=== PATIENT | female | born 1965 | race Caucasian/White ===

== ENCOUNTER → 2017-11-27 16:02 | Outpatient (REF) | payer BC, SELFPAY ==
[2017-11-27 17:57] LABS: Amphetamine/Metha Screen,Urine Negative ng/mL (<1000); Barbiturates Screen,Urine Negative ng/mL (<200); Benzodiazepines Screen,Urine Negative ng/mL (200); Cannabinoid Screen,Urine Negative ng/mL (<50); Cocaine Screen,Urine Negative ng/g (<300); Methadone Screen,Urine Negative ng/mL (<300); Opiate Screen,Urine Positive ng/mL (<300); Phencyclidine Screen,Urine Negative ng/mL (<25)
== END ==
LOC: LAB 16:02
PROVIDERS: Visit Provider Emergency Medicine
DX: Z79.899 Other long term (current) drug therapy (principal)
CPT/HCPCS: 80305

== ENCOUNTER → 2017-12-30 17:25 | Outpatient (REF) | payer BC, SELFPAY ==
[2017-12-31 13:07] LABS: Amphetamine/Metha Screen,Urine Negative ng/mL (<1000); Barbiturates Screen,Urine Negative ng/mL (<200); Benzodiazepines Screen,Urine Negative ng/mL (200); Cannabinoid Screen,Urine Negative ng/mL (<50); Cocaine Screen,Urine Negative ng/g (<300); Methadone Screen,Urine Negative ng/mL (<300); Opiate Screen,Urine Positive ng/mL (<300); Phencyclidine Screen,Urine Negative ng/mL (<25)
== END ==
LOC: LAB 17:25
PROVIDERS: Visit Provider Emergency Medicine
DX: Z79.899 Other long term (current) drug therapy (principal)
CPT/HCPCS: 80305

== ENCOUNTER → 2018-01-31 13:27 | Outpatient (REF) | payer BC, SELFPAY ==
[2018-02-04 16:55] LABS: Amphetamine/Metha Screen,Urine Negative ng/mL (<1000); Barbiturates Screen,Urine Negative ng/mL (<200); Benzodiazepines Screen,Urine Negative ng/mL (<200); Cannabinoid Screen,Urine Negative ng/mL (<50); Cocaine Screen,Urine Negative ng/mL (<300); Methadone Screen,Urine Negative ng/mL (<300); Opiate Screen,Urine Positive ng/mL (<300); Phencyclidine Screen,Urine Negative ng/mL (<25)
== END ==
LOC: LAB 13:27
PROVIDERS: Visit Provider Emergency Medicine
DX: F41.9 Anxiety disorder, unspecified (principal); Z79.899 Other long term (current) drug therapy
CPT/HCPCS: 80305

== ENCOUNTER → 2018-03-05 13:21 | Outpatient (REF) | payer BC, SELFPAY ==
[2018-03-05 19:41] LABS: Amphetamine/Metha Screen,Urine Negative ng/mL (<1000); Barbiturates Screen,Urine Negative ng/mL (<200); Benzodiazepines Screen,Urine Negative ng/mL (<200); Cannabinoid Screen,Urine Negative ng/mL (<50); Cocaine Screen,Urine Negative ng/mL (<300); Methadone Screen,Urine Negative ng/mL (<300); Opiate Screen,Urine Positive ng/mL (<300); Phencyclidine Screen,Urine Negative ng/mL (<25)
== END ==
LOC: LAB 13:21
PROVIDERS: Visit Provider Emergency Medicine
DX: Z79.899 Other long term (current) drug therapy (principal)
CPT/HCPCS: 80305

== ENCOUNTER → 2018-04-01 15:10 | Outpatient (REF) | payer BC, SELFPAY ==
[2018-04-01 19:15] LABS: Amphetamine/Metha Screen,Urine Negative ng/mL (<1000); Barbiturates Screen,Urine Negative ng/mL (<200); Benzodiazepines Screen,Urine Negative ng/mL (<200); Cannabinoid Screen,Urine Negative ng/mL (<50); Cocaine Screen,Urine Negative ng/mL (<300); Methadone Screen,Urine Negative ng/mL (<300); Opiate Screen,Urine Positive ng/mL (<300); Phencyclidine Screen,Urine Negative ng/mL (<25)
== END ==
LOC: LAB 15:10
PROVIDERS: Visit Provider Emergency Medicine
DX: Z79.899 Other long term (current) drug therapy (principal)
CPT/HCPCS: 80305

== ENCOUNTER → 2018-04-30 19:41 | Outpatient (REF) | payer BC, SELFPAY ==
[2018-04-30 21:15] LABS: Amphetamine/Metha Screen,Urine Negative ng/mL (<1000); Barbiturates Screen,Urine Negative ng/mL (<200); Benzodiazepines Screen,Urine Negative ng/mL (<200); Cannabinoid Screen,Urine Negative ng/mL (<50); Cocaine Screen,Urine Negative ng/mL (<300); Methadone Screen,Urine Negative ng/mL (<300); Opiate Screen,Urine Positive ng/mL (<300); Phencyclidine Screen,Urine Negative ng/mL (<25)
== END ==
LOC: LAB 19:41
PROVIDERS: PCP Nurse Practitioner Family; Visit Provider Nurse Practitioner Family
DX: Z79.899 Other long term (current) drug therapy (principal)
CPT/HCPCS: 80305

== ENCOUNTER → 2018-05-28 12:56 | Outpatient (CLI) | payer BC, SELFPAY ==
[2018-05-28 14:32] LABS: Amphetamine/Metha Screen,Urine Negative ng/mL (<1000); Barbiturates Screen,Urine Negative ng/mL (<200); Benzodiazepines Screen,Urine Negative ng/mL (<200); Cannabinoid Screen,Urine Negative ng/mL (<50); Cocaine Screen,Urine Negative ng/mL (<300); Methadone Screen,Urine Negative ng/mL (<300); Opiate Screen,Urine Positive ng/mL (<300); Phencyclidine Screen,Urine Negative ng/mL (<25)
== END ==
PROVIDERS: Visit Provider Emergency Medicine
DX: Z79.899 Other long term (current) drug therapy (principal)
CPT/HCPCS: 80305

== ENCOUNTER → 2018-07-25 14:15 | Outpatient (CLI) | payer BC, SELFPAY ==
[2018-07-25 14:48] LABS: Amphetamine/Metha Screen,Urine Negative ng/mL (<1000); Barbiturates Screen,Urine Negative ng/mL (<200); Benzodiazepines Screen,Urine Negative ng/mL (<200); Cannabinoid Screen,Urine Negative ng/mL (<50); Cocaine Screen,Urine Negative ng/mL (<300); Methadone Screen,Urine Negative ng/mL (<300); Opiate Screen,Urine Positive ng/mL (<300); Phencyclidine Screen,Urine Negative ng/mL (<25)
== END ==
PROVIDERS: Visit Provider Emergency Medicine
DX: Z79.899 Other long term (current) drug therapy (principal)
CPT/HCPCS: 80305

== ENCOUNTER → 2018-08-26 11:18 | Outpatient (CLI) | payer BC, SELFPAY ==
[2018-08-26 12:46] LABS: Basophils # 0.1 K/mm3 (0-0.2); Basophils % 0.7 % (0.1-2.0); Eosinophils # 0.1 K/mm3 (0.0-0.4); Eosinophils % 1.1 % (0.1-12.0); Hematocrit 42.4 % (37.0-47.0); Hemoglobin 13.9 g/dL (12.2-16.2); Lymphocytes # 3.5 K/mm3 (0.7-4.5); Lymphocytes % 39.8 % (10-50); Mean Corpuscular HGB Conc 32.9 g/dL (31.8-35.4); Mean Corpuscular Hemoglobin 31.4 pg (27.0-31.2); Mean Corpuscular Volume 95.5 fl (81-99); Mean Platelet Volume 7.7 fl (7.4-10.4); Monocytes # 0.4 K/mm3 (0.1-1.0); Monocytes % 4.7 % (1.7-9.3); Neutrophils # 4.7 K/mm3 (1.8-7.8); Neutrophils % 53.8 % (37.0-80.0); Platelet Count 461 K/mm3 (142-424); Red Blood Count 4.44 M/mm3 (4.20-5.40); White Blood Count 8.8 K/mm3 (4.8-10.8)
[2018-08-26 15:19] LABS: Alanine Aminotransferase 22 U/L (12-78); Albumin/Globulin Ratio 1.3 (1.1-1.8); Alkaline Phosphatase 103 U/L (46-116); Anion Gap 13.9 mEq/L (5-15); Aspartate Amino Transferase 16 U/L (15-37); Bilirubin,Total 0.3 mg/dL (0.2-1.0); Blood Urea Nitrogen 11 mg/dL (7-18); Calcium 8.8 mg/dL (8.5-10.1); Carbon Dioxide 26 mmol/L (21.0-32.0); Chloride 106 mmol/L (98-107); Creatinine,Serum 0.81 mg/dL (0.55-1.02); Estimated Glomerular Filt Rate 75 ml/min (>60); GFR (African American) 90 ML/MIN (>60); Globulin 3.1 gm/dl (1.3-3.2); Glucose 57 mg/dL (74-106); Potassium 3.9 mmoL/L (3.5-5.1); Sodium 142 mmol/L (136-145); Total Protein,Serum 7.1 gm/dL (6.4-8.2)
== END ==
PROVIDERS: Visit Provider Otolaryngology
DX: Z01.818 Encounter for other preprocedural examination (principal); H91.93 Unspecified hearing loss, bilateral
CPT/HCPCS: 36415; 80053; 85025; 93005

== ENCOUNTER → 2018-09-19 13:32 | Outpatient (CLI) | payer BC, SELFPAY ==
[2018-09-19 14:06] LABS: Amphetamine/Metha Screen,Urine Negative ng/mL (<1000); Barbiturates Screen,Urine Negative ng/mL (<200); Benzodiazepines Screen,Urine Negative ng/mL (<200); Cannabinoid Screen,Urine Negative ng/mL (<50); Cocaine Screen,Urine Negative ng/mL (<300); Methadone Screen,Urine Negative ng/mL (<300); Opiate Screen,Urine Positive ng/mL (<300); Phencyclidine Screen,Urine Negative ng/mL (<25)
== END ==
PROVIDERS: Visit Provider Emergency Medicine
DX: Z79.899 Other long term (current) drug therapy (principal)
CPT/HCPCS: 80305

== ENCOUNTER → 2018-11-18 17:27 | Outpatient (CLI) | payer BC, SELFPAY ==
[2018-11-18 19:13] LABS: Amphetamine/Metha Screen,Urine Negative ng/mL (<1000); Barbiturates Screen,Urine Negative ng/mL (<200); Benzodiazepines Screen,Urine Negative ng/mL (<200); Cannabinoid Screen,Urine Negative ng/mL (<50); Cocaine Screen,Urine Negative ng/mL (<300); Methadone Screen,Urine Negative ng/mL (<300); Opiate Screen,Urine Positive ng/mL (<300); Phencyclidine Screen,Urine Negative ng/mL (<25)
== END ==
PROVIDERS: Visit Provider Emergency Medicine
DX: Z79.899 Other long term (current) drug therapy (principal)
CPT/HCPCS: 80305

== ENCOUNTER → 2018-12-03 14:20 | Outpatient (CLI) | payer BC, SELFPAY ==
--- NOTE | 2018-12-03 14:21 | MR_ITS ---
MR thoracic spine wo con HISTORY: Kyphoplasty in 2017. Had lesisons on thoracic spin but came back benign 2017. Increased back pain. Pain worse on LT side x2017. MR --17. ITS.REASON: back pain ORDERING PHYSICIAN: Thee Isaac MD PATIENT AGE: 53 years Comparison: 11/06/2016 TECHNIQUE: Standard multiplanar multiecho sequences are performed without contrast. 3-D MIP and myelographic images are also rendered and reviewed FINDINGS: There is kyphosis of the thoracic spine noted with severe wedge compression changes/vertebral planus at T8. There is retrolisthesis of the posterior superior aspect of T8 vertebral body x 4 mm somewhat less than when compared to the previous exam. The impingement upon the anterior aspect of the cord has improved compared to the previous exam at the T8 area with no significant enhancement on the cord on today's study. Severe compression changes are also present at T6 with loss of height anteriorly of greater than 50% similar to the previous exam without retropulsion. Wedge compression changes have developed at the T12 with loss of height anteriorly of 30%. This has developed since 11-21. However, no bone marrow edema is evident at this level consistent with an old fracture. No bony destructive process is evident. No cord impingement. Multiple T2 hyperintensities are present within the liver which is not readily apparent on the previous exam nor on the CT scan of 11/15/2016. Recommend CT of the abdomen without and with contrast for further evaluation IMPRESSION: 1. Severe wedge compression changes at T6 which are stable for 2. Severe compression changes at T8/vertebra planus with improvement in the retropulsion with no cord compression. 3. Interval development of wedge compression changes at T12 but which do not appear acute. 4. Multiple T2 hyperintensities of the liver. Suggest ET upper abdomen without and with contrast for follow-up evaluation
--- NOTE | 2018-12-03 14:21 | MR_ITS ---
MR lumbar spine wo con, MR 3-d myelogram/MRCP HISTORY: LBP. Tingling, pain, numbness, in left leg. . ITS.REASON: back pain ORDERING PHYSICIAN: Thee Isaac MD PATIENT AGE: 53 years Comparison: None TECHNIQUE: Standard multiplanar multiecho sequences are performed without contrast. 3-D MIP and myelographic images are also rendered and reviewed FINDINGS: Spinal cord ends at the L1 level. Minimal bulging disc at L1-L2 with mild disc desiccation. L2-L3, L3-L4, L4-L5 have an unremarkable appearance. L5-S1: Minimal bulging disc with minimal broad-based central disc protrusion. No canal stenosis or extruded herniated disc evident. IMPRESSION: Minimal bulging disc with small broad-based central disc protrusion without impingement Otherwise negative
== END ==
PROVIDERS: PCP Emergency Medicine; Visit Provider Emergency Medicine
DX: M54.9 Dorsalgia, unspecified (principal); M54.16 Radiculopathy, lumbar region
CPT/HCPCS: 72146; 72148; 76376

== ENCOUNTER → 2018-12-23 08:55 | Outpatient (CLI) | payer BC, SELFPAY ==
--- NOTE | 2018-12-23 09:01 | CT_ITS ---
CT abdomen wo/w con CLINICAL INDICATION: Follow-up abnormal MRI of the liver ITS.REASON: hyperdensities on liver seen on MRI ORDERING PHYSICIAN: Thee Isaac MD PATIENT AGE: 53 years COMPARISON: 12/03/2018, 11/15/2016, 03/12/2016 TECHNIQUE: Contrast Used:75ml Optiray 350 Oral Contrast: None Axial images obtained with sagittal and coronal reformats. All CT scans at the facility use one or more dose reduction, viz: automated exposure control, ma/kV adjustment per patient size (including targeted exams where dose is matched to indication, i.e. head), or iterative reconstruction technique. FINDINGS: The lung bases are clear. MRI demonstrated areas of increased T2 signal within the right hepatic lobe. On the enhanced images there is a 9 x 7 mm isodensity in the right hepatic lobe posteriorly which appears similar on the immediate post enhanced images but is somewhat less apparent on the delayed images. There are at least 2 other smaller isodensity is in the right hepatic lobe measuring 4 mm each which were also present on MRI. Liver otherwise has an unremarkable appearance. The spleen, adrenal glands, pancreas, and kidneys have an unremarkable appearance. There is minimal ectasia of the ureters. The pelvis was not included on the exam and the distal ureters are not demonstrated. There is mild wedging at T12 which was present on the previous MRI of 12/03/2018. IMPRESSION: There are 3 isodense lesion of the right hepatic lobe as described above. These may represent small cysts. Suggest 6 month follow-up without and with contrast to confirm short-term stability.
== END ==
PROVIDERS: PCP Emergency Medicine; Visit Provider Emergency Medicine
DX: R93.2 Abnormal findings on diagnostic imaging of liver and biliary tract (principal)
CPT/HCPCS: 74170; Q9967

== ENCOUNTER → 2019-01-21 13:52 | Outpatient (CLI) | payer BC, SELFPAY ==
[2019-01-21 15:03] LABS: Amphetamine/Metha Screen,Urine Negative ng/mL (<1000); Barbiturates Screen,Urine Negative ng/mL (<200); Benzodiazepines Screen,Urine Negative ng/mL (<200); Cannabinoid Screen,Urine Negative ng/mL (<50); Cocaine Screen,Urine Negative ng/mL (<300); Methadone Screen,Urine Negative ng/mL (<300); Opiate Screen,Urine Positive ng/mL (<300); Phencyclidine Screen,Urine Negative ng/mL (<25)
== END ==
PROVIDERS: Visit Provider Emergency Medicine
DX: Z79.891 Long term (current) use of opiate analgesic (principal)
CPT/HCPCS: 80305

== ENCOUNTER → 2019-02-23 13:07 | Outpatient (POV) | payer BC, SELFPAY ==
[2019-02-23 13:23] VITALS: BP 111/68; PULSE 84; RESP 18; O2SAT 99; BMI 25.7
--- NOTE | 2019-02-23 16:22 | HMH.PMCON ---
Assessment and Plan (1) Lumbar discogenic pain syndrome Current visit: No Status: Chronic Category: Medical Code(s): M51.26 - Other intervertebral disc displacement, lumbar region (2) Compression fx, thoracic spine Current visit: No Status: Chronic Category: Medical Code(s): S22.000A - Wedge compression fracture of unspecified thoracic vertebra, initial encounter for closed fracture (3) Lumbar radicular pain Current visit: No Status: Chronic Category: Medical Code(s): M54.16 - Radiculopathy, lumbar region - Assessment and plan all Dx Assessment and Plan for all problems:: Patient and I had a long discussion about intrathecal therapy. She believes that this would benefit her. I think it would be something that would help her significantly given her symptomology and pathology. She is not on any anticoagulation therapy. She is not currently being treated for any infections. We discussed psychological review and evaluation prior to trial. We also discussed trials risks and benefits along with the implant risk and benefits we also discussed weaning off her House 48 hours prior to both procedures. She understands this. I will follow-up with the patient after her psychological evaluation will reassess her symptoms at that time and move forward with our plan. Dr. Novak has reviewed this note and agrees with this plan of care. This note was dictated using voice recognition software and may contain errors or omissions HPI - Data of Consult Consult date: 02/23/19 Requesting Physician: Amparo Verdugo APRN Primary Care Provider: Thee Isaac MD - Consult Narrative Reason for consult: Back pain, recurrent compression fractures History of present illness: Ms. Kebede is a 53 year old female who presents today for consultation in regards to her back pain. Patient has had multiple thoracic compression fractures and kyphoplasty's. Patient has constant back pain rating an 8 out of 10. She is currently on House however it is not beneficial to her. Patient and I had an extremely long conversation in regards to how she would like to move forward with her pain. She has back pain in her thoracic spine and lower lumbar area. All activity increases pain while heat and rest decreases pain. She is tried multiple modalities of treatment with no relief. Patient is tried kyphoplasty's, physical therapies, massage therapies, multiple medications. She is had pain for over 2 years. Patient's unable to do activities of daily living due to her crippling pain. CC: Amparo Verdugo APRN [facility] History I have reviewed the patient's past medical history: Yes Medical History: Reports:: Anxiety, Depression, Gastroesophageal Reflux Disease(GERD), Hypertension, Palpitations Denies:: Cancer, Diabetes Mellitus Type 1, Diabetes Mellitus Type 2, Internal Pacemaker, MRSA, Seizures *Have you ever received a pneumonia vaccine?: Yes *Have you received a flu vaccine this season?: Yes Other Medical History: Reports: Hypothyroidism. Denies: Blood Transfusion Reaction Other Surgeries: Yes: Cholecystectomy, Colonoscopy, , EGD, Other. No: Pacemaker Amputation: No Fractures: Yes - *Social History Smoking Status: Current every day smoker Tobacco Type: cigarettes # Packs/Day (cigarettes): 1 Alcohol Intake: current Alcohol Intake Frequency:: a few times a week Substance Use Type: denies use *Occupational Status:: other Housing: house Household Members: other *Travel in the last 8 weeks: None - Psychiatric History Pschychiatric History:: Reports:: Anxiety, Depression Family Hx:: Diabetes, Hypertension, Cancer Review of Systems - Review of Systems ROS General: no recent weight change, no fever, no sleep disturbances Respiratory: no cough, no shortness of air, no recurring pulmonary infections Cardiovascular/Peripheral Vascular: No chest pain, No palpitations, no edema, no shortness of breath. Gastrointestinal: no inconti
--- NOTE | 2019-02-23 16:26 | P.CONS_ITS ---
Assessment and Plan (1) Lumbar discogenic pain syndrome Current visit: No Status: Chronic Category: Medical Code(s): M51.26 - Other intervertebral disc displacement, lumbar region (2) Compression fx, thoracic spine Current visit: No Status: Chronic Category: Medical Code(s): S22.000A - Wedge compression fracture of unspecified thoracic vertebra, initial encounter for closed fracture (3) Lumbar radicular pain Current visit: No Status: Chronic Category: Medical Code(s): M54.16 - Radiculopathy, lumbar region - Assessment and plan all Dx Assessment and Plan for all problems:: Patient and I had a long discussion about intrathecal therapy. She believes that this would benefit her. I think it would be something that would help her significantly given her symptomology and pathology. She is not on any anticoagulation therapy. She is not currently being treated for any infections. We discussed psychological review and evaluation prior to trial. We also discussed trials risks and benefits along with the implant risk and benefits we also discussed weaning off her [place] 48 hours prior to both procedures. She understands this. I will follow-up with the patient after her psychological evaluation will reassess her symptoms at that time and move forward with our plan. Dr. Novak has reviewed this note and agrees with this plan of care. This note was dictated using voice recognition software and may contain errors or omissions HPI - Data of Consult Consult date: 02/23/19 Requesting Physician: Amparo Verdugo APRN Primary Care Provider: Thee Isaac MD - Consult Narrative Reason for consult: Back pain, recurrent compression fractures History of present illness: Ms. Kebede is a 53 year old female who presents today for consultation in regards to her back pain. Patient has had multiple thoracic compression fractures and kyphoplasty's. Patient has constant back pain rating an 8 out of 10. She is currently on [place] however it is not beneficial to her. Patient and I had an extremely long conversation in regards to how she would like to move forward with her pain. She has back pain in her thoracic spine and lower lumbar area. All activity increases pain while heat and rest decreases pain. She is tried multiple modalities of treatment with no relief. Patient is tried kyphoplasty's, physical therapies, massage therapies, multiple medications. She is had pain for over 2 years. Patient's unable to do activities of daily living due to her crippling pain. CC: Amparo Verdugo APRN [facility] History I have reviewed the patient's past medical history: Yes Medical History: Reports:: Anxiety, Depression, Gastroesophageal Reflux Disease(GERD), Hypertension, Palpitations Denies:: Cancer, Diabetes Mellitus Type 1, Diabetes Mellitus Type 2, Internal Pacemaker, MRSA, Seizures *Have you ever received a pneumonia vaccine?: Yes *Have you received a flu vaccine this season?: Yes Other Medical History: Reports: Hypothyroidism. Denies: Blood Transfusion Reaction Other Surgeries: Yes: Cholecystectomy, Colonoscopy, , EGD, Other. No: Pacemaker Amputation: No Fractures: Yes - *Social History Smoking Status: Current every day smoker Tobacco Type: cigarettes # Packs/Day (cigarettes): 1 Alcohol Intake: current Alcohol Intake Frequency:: a few times a week Substance Use Type: denies use *Occupational Status:: other Housing: house Household Members: other *Travel in the last 8 weeks: None - Psychiatric History Pschychiatric History:: Reports:: Anxiety, Depression Family Hx:: Diabetes, Hypert
== END ==
PROVIDERS: PCP Emergency Medicine; Visit Provider Clinical Nurse Specialist Family Health
DX: M51.16 Intervertebral disc disorders with radiculopathy, lumbar region (principal); S22.000A Wedge compression fracture of unspecified thoracic vertebra, initial encounter for closed fracture
CPT/HCPCS: 99202

== ENCOUNTER → 2019-03-20 14:21 | Outpatient (CLI) | payer BC, SELFPAY ==
[2019-03-20 19:04] LABS: Amphetamine/Metha Screen,Urine Negative ng/mL (<1000); Barbiturates Screen,Urine Negative ng/mL (<200); Benzodiazepines Screen,Urine Negative ng/mL (<200); Cannabinoid Screen,Urine Negative ng/mL (<50); Cocaine Screen,Urine Negative ng/mL (<300); Methadone Screen,Urine Negative ng/mL (<300); Opiate Screen,Urine Positive ng/mL (<300); Phencyclidine Screen,Urine Negative ng/mL (<25)
== END ==
PROVIDERS: Visit Provider Emergency Medicine
DX: Z79.899 Other long term (current) drug therapy (principal)
CPT/HCPCS: 80305

== ENCOUNTER → 2019-03-27 09:53 | Outpatient (CLI) | payer BC, SELFPAY ==
--- NOTE | 2019-03-27 10:02 | CA_ITS ---
APPROVED REPORT EXAM: Comprehensive 2D, Doppler, and color-flow Echocardiogram Banking Representative: Carrie Willoughby RT(R) Ht: 5 ft 0 in Wt: 133lbs BSA: 1.57 BP: 145/71 mmHg Indications: Chest Pain, Shortness of Breath, Hypertension/HDD 2D Dimensions IVSd 0.80 cm F: 0.6-1.0 PWd 0.80 cm F: 0.6 - 1.0 LVDd 3.00 cm F: 3.9 - 5.3 LVOT 2.10 cm (M/F) 1.5-2.5 M-Mode Dimensions RVDd 2.20 cm (0.9-2.6) LA Diam 3.50 cm (1.9-4.0) LVDd 4.50 cm (3.5-5.7) Ao Diam 2.60 cm (2.0-3.7) LVDs 4.50 cm (3.5-5.7) AV Cusp 1.90 cm (1.5-2.6) IVSd 0.60 cm (0.6-1.1) EF (Teich) 0.00% FS 0.00% EDV (Teich) 92.40 mL ESV (Teich) 92.40 mL LV Diastology E/A Ratio 0.8 MED E' 8.68 (< 7 cm/sec) E'/MED E' Ratio 6.20 (>14) LAT E' 6.92 (<10 cm/sec) E/LAT E' Ratio 7.70 (>14) Mitral Valve MV E Max Zhang. 53.60 (40-130 cm/s) MV A Velocity 71.00 (40-130 cm/s) E/A Ratio 0.80 Tricuspid Valve TR P. Velocity 237.00 cm/s RAP Estimate 10.00 mmHg RVSP 32.00 mmHg Left Ventricle Left atrium is mildly enlarged, left ventricle is normal size, visually estimated ejection fraction 55% with no regional wall motion abnormality. Grade 1 diastolic dysfunction seen without tissue Doppler evidence of raise left atrial pressure. Right Ventricle Right atrium left ventricle mildly enlarged with normal contractility. Aortic Valve Aortic valve is minimally thickened and fibrosed., There is no aortic stenosis aortic insufficiency. Mitral Valve Mitral valve is leaflets are minimally thickened, there is no mitral stenosis. There is moderate mitral regurgitation. Tricuspid Valve Tricuspid valve is grossly normal, there is mild tricuspid regurgitation, tricuspid dilatation jet velocity is inadequate for calculation of the right ventricular systolic pressure. Pulmonic Valve Pulmonic valve is poorly visualized. Great Vessels Aortic root is normal size. Pericardium No significant pericardial effusion noted. Conclusion 1. Mild biatrial enlargement, normal left ventricular size, visually estimated ejection fraction 55% with no regional wall motion abnormality, grade 1 diastolic dysfunction seen without tissue Doppler evidence of raise left atrial pressure. 2. Mildly enlarged right ventricle with normal contractility. 3. Moderate mitral and mild tricuspid regurgitation 4. No significant pericardial effusion noted. Electronically signed by : Michele Duval, 03/27/2019 15:06:46
[2019-03-27 11:10] LABS: Anion Gap 15.5 mEq/L (5-15); Blood Urea Nitrogen 10 mg/dL (7-18); Calcium 9.2 mg/dL (8.5-10.1); Carbon Dioxide 25 mmol/L (21.0-32.0); Chloride 103 mmol/L (98-107); Creatinine,Serum 0.67 mg/dL (0.55-1.02); Estimated Glomerular Filt Rate 93 ml/min (>60); GFR (African American) 112 ML/MIN (>60); Glucose 85 mg/dL (74-106); Potassium 4.5 mmoL/L (3.5-5.1); Sodium 139 mmol/L (136-145)
== END ==
PROVIDERS: PCP Emergency Medicine; Visit Provider Internal Medicine Cardiovascular Disease
DX: R07.9 Chest pain, unspecified (principal); R06.02 Shortness of breath; I10 Essential (primary) hypertension
CPT/HCPCS: 36415; 80048; 83880; 93306

== ENCOUNTER → 2019-05-18 13:58 | Outpatient (CLI) | payer BC, SELFPAY ==
[2019-05-18 16:19] LABS: Amphetamine/Metha Screen,Urine Negative ng/mL (<1000); Barbiturates Screen,Urine Negative ng/mL (<200); Benzodiazepines Screen,Urine Negative ng/mL (<200); Cannabinoid Screen,Urine Negative ng/mL (<50); Cocaine Screen,Urine Negative ng/mL (<300); Methadone Screen,Urine Negative ng/mL (<300); Opiate Screen,Urine Positive ng/mL (<300); Phencyclidine Screen,Urine Negative ng/mL (<25)
== END ==
PROVIDERS: Visit Provider Emergency Medicine
DX: Z79.899 Other long term (current) drug therapy (principal)
CPT/HCPCS: 80305

== ENCOUNTER → 2019-06-15 11:03 | Outpatient (POV) | payer BC, SELFPAY ==
[2019-06-15 12:36] VITALS: BP 134/89; PULSE 85; RESP 18; O2SAT 99; BMI 25.4
--- NOTE | 2019-06-15 12:51 | HMH.PAINSOAP ---
[facility] Pain Management SOAP Note Subjective:: Patient presents quite tearful today to discuss psychological evaluation for intrathecal pain pump. Patient is not a candidate for an intrathecal pain pump at this time. The psychologist had several concerns including the ineffectiveness of her Ativan and potential anxiolytic rebound which potentially could be increasing her anxiety. She is also on a benzo diazepam along with a narcotic which can decrease the analgesic effect of opioids. Is also concerned in regards to her sleeping habits due to the fact that benzodiazepines block deep sleep. Patient was recently seen by Dr. Isaac who increased her [place]. [place] with the patient the concerns of the psychologist had. She is quite tearful today. She rates her pain today 8 out of 10 mostly in her thoracic spine. Patient and I discussed the need to start at the basic level of pain care to move forward. I do believe she needs to have a evaluation in regards to her anxiety due to the concerns that the psychologist had and the potential ineffectiveness of her pain medication due to her current anxiety and benzo use. We will set this up. We will also set her up for some injections to start her off with some pain relief to help her wean off medications potentially. ROS General: no recent weight change, no fever, no sleep disturbances Respiratory: no cough, no shortness of air, no recurring pulmonary infections Cardiovascular/Peripheral Vascular: No chest pain, No palpitations, no edema, no shortness of breath. Gastrointestinal: no new onset incontinence, normal bowel movements reported Genitourinary: no new onset incontinence Musculoskeletal: Thoracic back pain a low back pain Psychiatric: Tearful, anxious Neurological: [denies new onset weakness in extremities], [denies new onset balance issues] Objective:: Physical Exam General: Alert and oriented x3, no acute distress, pleasant and cooperative, [on room air] Lungs: Resps E/U, Symmetrical chest expansion, Eyes: PERRL Musculoskeletal: Flexion and extension of thoracic spine somewhat guarded secondary to pain, deep tendon reflexes normal, strength in upper and lower extremities [5/5], normal gait noted Neurological: speech clear, lubricating machine tender equal, no gross sensory deficits Assessment:: Postlaminectomy syndrome, kyphoplasty, chronic compression fractures Plan:: At this time the patient is not an intrathecal pain pump candidate. We will set her up with Lata Florian for an evaluation in regards to helping address her anxiety more effectively. Patient has no showed for 2 appointments with Lata Florian she must attend the third 1 or they will not schedule her anymore. We will set her up for a T7-T8 thoracic epidural steroid injection. She is not on any anticoagulation therapy. I do believe the patient needs to move forward with other treatment options and just benzodiazepines and narcotics. Dr. Novak has reviewed this note and agrees with this plan of care. This note was dictated using voice recognition software and may contain errors or omissions [facility] History I have reviewed the patient's past medical history: Yes Medical History: Reports:: Anxiety, Depression, Gastroesophageal Reflux Disease(GERD), Hyperlipidemia, Hypertension, Palpitations Denies:: Cancer, Diabetes Mellitus Type 1, Diabetes Mellitus Type 2, Internal Pacemaker, MRSA, Seizures *Have you ever received a pneumonia vaccine?: Yes *Have you received a flu vaccine this season?: Yes Other Medical History: Reports: Hypothyroidism. Denies: Blood Transfusion Reaction Other Surgeries: Yes: Cholecystectomy, Colonoscopy, , EGD, Other. No: Pacemaker Amputation: No Fractures: Yes - *Social History Smoking Status: Current every day smoker Tobacco Type: cigarettes # Packs/Day (cigarettes): 1 Alcohol Intake: current Alcohol Intake Frequency:: a few times a week Substance Use Type: denies use *Occupational Status:: oth
--- NOTE | 2019-06-15 12:55 | P.CONS_ITS ---
[facility] Pain Management SOAP Note Subjective:: Patient presents quite tearful today to discuss psychological evaluation for intrathecal pain pump. Patient is not a candidate for an intrathecal pain pump at this time. The psychologist had several concerns including the ineffectiveness of her Ativan and potential anxiolytic rebound which potentially could be increasing her anxiety. She is also on a benzo diazepam along with a narcotic which can decrease the analgesic effect of opioids. Is also concerned in regards to her sleeping habits due to the fact that benzodiazepines block deep sleep. Patient was recently seen by Dr. Isaac who increased her [place]. [place] with the patient the concerns of the psychologist had. She is quite tearful today. She rates her pain today 8 out of 10 mostly in her thoracic spine. Patient and I discussed the need to start at the basic level of pain care to move forward. I do believe she needs to have a evaluation in regards to her anxiety due to the concerns that the psychologist had and the potential ineffectiveness of her pain medication due to her current anxiety and benzo use. We will set this up. We will also set her up for some injections to start her off with some pain relief to help her wean off medications potentially. ROS General: no recent weight change, no fever, no sleep disturbances Respiratory: no cough, no shortness of air, no recurring pulmonary infections Cardiovascular/Peripheral Vascular: No chest pain, No palpitations, no edema, no shortness of breath. Gastrointestinal: no new onset incontinence, normal bowel movements reported Genitourinary: no new onset incontinence Musculoskeletal: Thoracic back pain a low back pain Psychiatric: Tearful, anxious Neurological: [denies new onset weakness in extremities], [denies new onset balance issues] Objective:: Physical Exam General: Alert and oriented x3, no acute distress, pleasant and cooperative, [on room air] Lungs: Resps E/U, Symmetrical chest expansion, Eyes: PERRL Musculoskeletal: Flexion and extension of thoracic spine somewhat guarded secondary to pain, deep tendon reflexes normal, strength in upper and lower extremities [5/5], normal gait noted Neurological: speech clear, switchboard operator receptionist equal, no gross sensory deficits Assessment:: Postlaminectomy syndrome, kyphoplasty, chronic compression fractures Plan:: At this time the patient is not an intrathecal pain pump candidate. We will set her up with Lata Florian for an evaluation in regards to helping address her anxiety more effectively. Patient has no showed for 2 appointments with Lata Florian she must attend the third 1 or they will not schedule her anymore. We will set her up for a T7-T8 thoracic epidural steroid injection. She is not on any anticoagulation therapy. I do believe the patient needs to move forward with other treatment options and just benzodiazepines and narcotics. Dr. Novak has reviewed this note and agrees with this plan of care. This note was dictated using voice recognition software and may contain errors or omissions [facility] History I have reviewed the patient's past medical history: Yes Medical History: Reports:: Anxiety, Depression, Gastroesophageal Reflux Disease(GERD), Hyperlipidemia, Hypertension, Palpitations Denies:: Cancer, Diabetes Mellitus Type 1, Diabetes Mellitus Type 2, Internal Pacemaker, MRSA, Seizures *Have you ever received a pneumonia vaccine?: Yes *Have you received a flu vaccine this season?: Yes Other Medical History: Reports: Hypothyroidism. Denies: Blood Transfusion Reaction Other Surgeries: Yes: Cholecystectomy, Colonoscopy, C
[2019-06-15 15:41] VITALS: BP 189/87; PULSE 59; RESP 18; O2SAT 98; BMI 33.0
== END ==
PROVIDERS: PCP Emergency Medicine; Visit Provider Clinical Nurse Specialist Family Health
DX: M96.1 Postlaminectomy syndrome, not elsewhere classified (principal); S22.000A Wedge compression fracture of unspecified thoracic vertebra, initial encounter for closed fracture
CPT/HCPCS: 99212

== ENCOUNTER → 2019-07-15 13:25 | Outpatient (CLI) | payer BC, SELFPAY ==
[2019-07-15 15:44] LABS: Amphetamine/Metha Screen,Urine Negative ng/mL (<1000); Barbiturates Screen,Urine Negative ng/mL (<200); Benzodiazepines Screen,Urine Negative ng/mL (<200); Cannabinoid Screen,Urine Negative ng/mL (<50); Cocaine Screen,Urine Negative ng/mL (<300); Methadone Screen,Urine Negative ng/mL (<300); Opiate Screen,Urine Positive ng/mL (<300); Phencyclidine Screen,Urine Negative ng/mL (<25)
== END ==
PROVIDERS: Visit Provider Emergency Medicine
DX: Z79.899 Other long term (current) drug therapy (principal)
CPT/HCPCS: 80305

== ENCOUNTER → 2019-07-27 11:46 | Outpatient (POV) | payer BC, SELFPAY ==
[2019-07-27 11:59] VITALS: BP 132/72; PULSE 70; RESP 18; O2SAT 99; BMI 25.0
--- NOTE | 2019-07-27 12:39 | HMH.PAINSOAP ---
[facility] Pain Management SOAP Note Subjective:: Patient presents for follow-up after thoracic epidural steroid injection. She rates her pain today an 8 of 10 and states it did not help. Patient is not a candidate for an intrathecal pain pump at this time. The psychologist had several concerns including the ineffectiveness of her Ativan and potential anxiolytic rebound which potentially could be increasing her anxiety. She is also on a benzo diazepam along with a narcotic which can decrease the analgesic effect of opioids. Is also concerned in regards to her sleeping habits due to the fact that benzodiazepines block deep sleep. Patient was recently seen by Dr. Isaac who increased her [place]. Our hope was that the thoracic epidural would help however she did not find it beneficial. I did make her an appointment with Lata Florian for anxiety. I do believe that is beneficial if we could get that under control it would be helpful. Patient was unable to make her appointment and rescheduled it for August 10. I do believe she needs to have a evaluation in regards to her anxiety due to the concerns that the psychologist had and the potential ineffectiveness of her pain medication due to her current anxiety and benzo use. ROS General: no recent weight change, no fever, no sleep disturbances Respiratory: no cough, no shortness of air, no recurring pulmonary infections Cardiovascular/Peripheral Vascular: No chest pain, No palpitations, no edema, no shortness of breath. Gastrointestinal: no new onset incontinence, normal bowel movements reported Genitourinary: no new onset incontinence Musculoskeletal: Back pain Psychiatric: normal mood/ affect Neurological: [denies new onset weakness in extremities], [denies new onset balance issues] Objective:: Physical Exam General: Alert and oriented x3, no acute distress, pleasant and cooperative, [on room air] Lungs: Resps E/U, Symmetrical chest expansion, Eyes: PERRL Musculoskeletal: Flexion and extension of thoracic spine somewhat guarded secondary to pain, deep tendon reflexes normal, strength in upper and lower extremities [5/5], normal gait noted Neurological: speech clear, mangle press catcher equal, no gross sensory deficits Assessment:: 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 She has been instructed to call the office if she has any issues prior to her next appointment. Dr. Novak has reviewed this note and agrees with this plan of care. This note was dictated using voice recognition software and may contain errors or omissions [facility] History I have reviewed the patient's past medical history: Yes Medical History: Reports:: Anxiety, Depression, Gastroesophageal Reflux Disease(GERD), Hyperlipidemia, Hypertension, Palpitations Denies:: Cancer, Diabetes Mellitus Type 1, Diabetes Mellitus Type 2, Internal Pacemaker, MRSA, Seizures *Have you ever received a pneumonia vaccine?: Yes *Have you received a flu vaccine this season?: Yes Other Medical History: Reports: Hypothyroidism. Denies: Blood Transfusion Reaction Other Surgeries: Yes: Cholecystectomy, Colonoscopy, , EGD, Other. No: Pacemaker Amputation: No Fractures: Yes - *Social History Smoking Status: Current every day smoker Tobacco Type: cigarettes # Packs/Day (cigarettes): 1 Alcohol Intake: current Alcohol Intake Frequency:: 0-2 drinks per day Substance Use Type: denies use *Occupational Status:: other Housing: house Household Members: other *Travel in the last 8 weeks: None - Psychiatric History Pschychiatric History:: Reports:: Anxiety, Depression Family Hx:: Diabetes, Hypertension, Cancer
== END ==
PROVIDERS: PCP Emergency Medicine; Visit Provider Clinical Nurse Specialist Family Health
DX: M51.14 Intervertebral disc disorders with radiculopathy, thoracic region (principal); M54.5 Low back pain; F32.9 Major depressive disorder, single episode, unspecified; F41.9 Anxiety disorder, unspecified; K21.9 Gastro-esophageal reflux disease without esophagitis; E78.5 Hyperlipidemia, unspecified; I10 Essential (primary) hypertension; R00.2 Palpitations; E03.9 Hypothyroidism, unspecified; Z72.0 Tobacco use
CPT/HCPCS: 99212

== ENCOUNTER → 2019-08-14 09:56 | Outpatient (CLI) | payer BC, SELFPAY ==
[2019-08-14 10:51] LABS: Basophils # 0.1 K/mm3 (0-0.2); Basophils % 0.4 % (0.1-2.0); Eosinophils # 0.2 K/mm3 (0.0-0.4); Eosinophils % 1.7 % (0.1-12.0); Hemoglobin 14.2 g/dL (12.2-16.2); Lymphocytes # 2.1 K/mm3 (0.7-4.5); Lymphocytes % 15.6 % (10-50); Mean Corpuscular HGB Conc 32.3 g/dL (31.8-35.4); Mean Corpuscular Hemoglobin 30.4 pg (27.0-31.2); Mean Corpuscular Volume 94.2 fl (81-99); Mean Platelet Volume 7.5 fl (7.4-10.4); Monocytes # 0.4 K/mm3 (0.1-1.0); Monocytes % 3.1 % (1.7-9.3); Neutrophils # 10.5 K/mm3 (1.8-7.8); Neutrophils % 79.2 % (37.0-80.0); Platelet Count 598 K/mm3 (142-424); Red Blood Count 4.67 M/mm3 (4.20-5.40); Red Cell Distribution Width 12.9 % (11.5-17.5); White Blood Count 13.3 K/mm3 (4.8-10.8)
[2019-08-14 12:19] LABS: Alanine Aminotransferase 22 U/L (12-78); Albumin/Globulin Ratio 1.3 (1.1-1.8); Alkaline Phosphatase 119 U/L (46-116); Anion Gap 15.8 mEq/L (5-15); Aspartate Amino Transferase 11 U/L (15-37); Bilirubin,Total 0.1 mg/dL (0.2-1.0); Blood Urea Nitrogen 12 mg/dL (7-18); Calcium 9.5 mg/dL (8.5-10.1); Carbon Dioxide 24 mmol/L (21.0-32.0); Chloride 103 mmol/L (98-107); Chol/HDL Ratio 5.7 (1-3.5); Cholesterol 228 mg/dL (140-200); Creatinine,Serum 0.72 mg/dL (0.55-1.02); Estimated Glomerular Filt Rate 85 ml/min (>60); Free Thyroxine Index 2.6 ug/dL (5.93-13.13); GFR (African American) 103 ML/MIN (>60); Globulin 3.1 gm/dl (1.3-3.2); Glucose 103 mg/dL (74-106); HDL Cholesterol 40 mg/dL (29-89); LDL Cholesterol 139 mg/dL (0-130); Potassium 4.8 mmoL/L (3.5-5.1); Sodium 138 mmol/L (136-145); T4 (Thyroxine) 7.8 ug/dl (4.7-13.3); Thyroid Stimulating Hormone 1.01 uIU/ml (0.358-3.740); Total Protein,Serum 7.1 gm/dL (6.4-8.2); Triglycerides 245 mg/dL (30-200); Triiodothryronine (T3) Uptake 33 % (31-39); VLDL Cholesterol 49 mg/dL (0-40)
[2019-08-15 15:31] LABS: Vitamin D 25 Hydroxy 18.7 ng/mL (30.0-100.0)
== END ==
PROVIDERS: Visit Provider Nurse Practitioner Family
DX: Z00.00 Encounter for general adult medical examination without abnormal findings (principal); I10 Essential (primary) hypertension; E78.5 Hyperlipidemia, unspecified; E03.9 Hypothyroidism, unspecified; E55.9 Vitamin D deficiency, unspecified; F17.200 Nicotine dependence, unspecified, uncomplicated; Z79.899 Other long term (current) drug therapy
CPT/HCPCS: 36415; 80053; 80061; 80323; 82652; 84436; 84443; 84479; 85025

== ENCOUNTER → 2019-08-17 11:51 | Outpatient (POV) | payer BC, SELFPAY ==
[2019-08-17 12:21] VITALS: BP 114/66; PULSE 77; RESP 18; O2SAT 99; BMI 25.0
--- NOTE | 2019-08-17 12:42 | P.CONS_ITS ---
[facility] Pain Management SOAP Note Subjective:: Patient is a very pleasant 54-year-old white female who presents today for follow-up. Patient has been seen by Lata Florian. It sounds like it was a very beneficial discussion there and work on preventing her anxiety versus managing it with Ativan. At this time patient was not intrathecal pain pump candidate due to her being on Ativan and [place]. There is also some concerns in regards to her sleeping we will work and continue to monitor her through this process and work toward something that can be implanted to be a more permanent fix for her back pain. 8 out of 10 is her pain today ROS General: no recent weight change, no fever, no sleep disturbances Respiratory: no cough, no shortness of air, no recurring pulmonary infections Cardiovascular/Peripheral Vascular: No chest pain, No palpitations, no edema, no shortness of breath. Gastrointestinal: no new onset incontinence, normal bowel movements reported Genitourinary: no new onset incontinence Musculoskeletal: Back pain Psychiatric: normal mood/ affect Neurological: [denies new onset weakness in extremities], [denies new onset balance issues] Objective:: Physical Exam General: Alert and oriented x3, no acute distress, pleasant and cooperative, [on room air] Lungs: Resps E/U, Symmetrical chest expansion, Eyes: PERRL Musculoskeletal: Flexion and extension of thoracic and lumbar spine somewhat guarded secondary to pain, deep tendon reflexes normal, strength in upper and lower extremities [5/5], antalgic gait noted Neurological: speech clear, nfl player equal, no gross sensory deficits Assessment:: Degenerative disc disease thoracic spine with thoracic radiculopathy and low back pain Plan:: We will to the patient back for follow-up in 2 months reassess her symptoms at that time she is been instructed to call the office if she has any issues prior to her next appointment. Dr. Novak has reviewed this note and agrees with this plan of care. This note was dictated using voice recognition software and may contain errors or omissions [facility] History I have reviewed the patient's past medical history: Yes Medical History: Reports:: Anxiety, Depression, Gastroesophageal Reflux Disease(GERD), Hyperlipidemia, Hypertension, Palpitations Denies:: Cancer, Diabetes Mellitus Type 1, Diabetes Mellitus Type 2, Internal Pacemaker, MRSA, Seizures *Have you ever received a pneumonia vaccine?: Yes *Have you received a flu vaccine this season?: Yes Other Medical History: Reports: Hypothyroidism. Denies: Blood Transfusion Reaction Other Surgeries: Yes: Cholecystectomy, Colonoscopy, , EGD, Other (pre cancer mole removed, back surgery 2017). No: Pacemaker Amputation: No Fractures: Yes - *Social History Smoking Status: Current every day smoker Tobacco Type: cigarettes # Packs/Day (cigarettes): 1 Alcohol Intake: current Alcohol Intake Frequency:: 0-2 drinks per day Substance Use Type: denies use *Occupational Status:: other Housing: house Household Members: other *Travel in the last 8 weeks: None - Psychiatric History Pschychiatric History:: Reports:: Anxiety, Depression Family Hx:: Diabetes, Hypertension, Cancer
== END ==
PROVIDERS: PCP Emergency Medicine; Visit Provider Clinical Nurse Specialist Family Health
DX: M51.14 Intervertebral disc disorders with radiculopathy, thoracic region (principal); M54.5 Low back pain; Z72.0 Tobacco use
CPT/HCPCS: 99212

== ENCOUNTER → 2019-09-04 17:13 | Outpatient (CLI) | payer BC, SELFPAY ==
[2019-09-04 18:27] LABS: Amphetamine/Metha Screen,Urine Negative ng/ml (<1000); Barbiturates Screen,Urine Negative ng/ml (<200)
[2019-09-04 18:29] LABS: Benzodiazepines Screen,Urine Negative ng/ml (<200)
[2019-09-04 18:30] LABS: Cannabinoid Screen,Urine Negative ng/ml (<50)
[2019-09-04 18:31] LABS: Cocaine Screen,Urine Negative ng/ml (<300)
[2019-09-04 18:32] LABS: Methadone Screen,Urine Negative ng/ml (<300); Opiate Screen,Urine Positive ng/ml (<300)
[2019-09-04 18:33] LABS: Phencyclidine Screen,Urine Negative ng/ml (<25)
== END ==
PROVIDERS: Visit Provider Emergency Medicine
DX: Z79.899 Other long term (current) drug therapy (principal)
CPT/HCPCS: 80305

== ENCOUNTER → 2019-12-01 15:13 | Outpatient (CLI) | payer BC, SELFPAY ==
[2019-12-01 20:21] LABS: Amphetamine/Metha Screen,Urine Negative ng/ml (<1000)
[2019-12-01 20:22] LABS: Barbiturates Screen,Urine Negative ng/ml (<200)
[2019-12-01 20:23] LABS: Benzodiazepines Screen,Urine Negative ng/ml (<200); Cannabinoid Screen,Urine Negative ng/ml (<50)
[2019-12-01 20:24] LABS: Cocaine Screen,Urine Negative ng/ml (<300); Methadone Screen,Urine Negative ng/ml (<300)
[2019-12-01 20:25] LABS: Opiate Screen,Urine Positive ng/ml (<300)
[2019-12-01 20:26] LABS: Phencyclidine Screen,Urine Negative ng/ml (<25)
== END ==
PROVIDERS: Visit Provider Emergency Medicine
DX: Z79.899 Other long term (current) drug therapy (principal)
CPT/HCPCS: 80305

== ENCOUNTER → 2019-12-29 09:28 | Outpatient (CLI) | payer BC, SELFPAY ==
[2019-12-30 15:17] LABS: Covid-19 Nasal PCR Sendout Lex Not Detected
== END ==
PROVIDERS: PCP Emergency Medicine; Visit Provider Emergency Medicine
DX: Z03.818 Encounter for observation for suspected exposure to other biological agents ruled out (principal)
CPT/HCPCS: U0004

== ENCOUNTER → 2020-01-29 13:56 | Outpatient (CLI) | payer BC, SELFPAY ==
[2020-01-29 14:12] LABS: Basophils # 0.1 K/mm3 (0-0.2); Basophils % 0.4 % (0.1-2.0); Eosinophils # 0.1 K/mm3 (0.0-0.4); Eosinophils % 0.8 % (0.1-12.0); Hematocrit 43.6 % (37.0-47.0); Hemoglobin 14.3 g/dL (12.2-16.2); Lymphocytes # 3.1 K/mm3 (0.7-4.5); Lymphocytes % 19.4 % (10-50); Mean Corpuscular HGB Conc 32.8 g/dL (31.8-35.4); Mean Corpuscular Hemoglobin 32.2 pg (27.0-31.2); Mean Platelet Volume 9.3 fl (7.4-10.4); Monocytes # 0.7 K/mm3 (0.1-1.0); Monocytes % 4.1 % (1.7-9.3); Neutrophils # 12.1 K/mm3 (1.8-7.8); Neutrophils % 75.3 % (37.0-80.0); Platelet Count 331 K/mm3 (142-424); Red Blood Count 4.45 M/mm3 (4.20-5.40); Red Cell Distribution Width 12.6 % (11.5-17.5); White Blood Count 16.1 K/mm3 (4.8-10.8)
[2020-01-29 14:20] LABS: Alanine Aminotransferase 16 U/L (12-78); Albumin Level 4.7 g/dl (3.5-5.0); Albumin/Globulin Ratio 1.7 (1.1-1.8); Alkaline Phosphatase 93 U/L (38-126); Anion Gap 15.6 mEq/L (5-15); Aspartate Amino Transferase 23 U/L (14-36); Bilirubin,Total 0.6 mg/dl (0.2-1.3); Blood Urea Nitrogen 8 mg/dl (7-17); Calcium 10.1 mg/dl (8.4-10.2); Carbon Dioxide 24 mmol/L (22.0-30.0); Chloride 104 mmol/L (98-107); Chol/HDL Ratio 6.1 (1-3.5); Cholesterol 244 mg/dl (140-200); Estimated Glomerular Filt Rate 105 ml/min (>60); GFR (African American) 127 ML/MIN (>60); Globulin 2.8 g/dL (1.3-3.2); Glucose 99 mg/dl (74-100); HDL Cholesterol 40 mg/dl (40-60); Potassium 4.6 mmoL/L (3.5-5.1); Sodium 139 mmol/L (136-145); Total Protein,Serum 7.5 g/dl (6.3-8.2); Triglycerides 375 mg/dl (30-150); VLDL Cholesterol 75 mg/dL (0-40)
[2020-01-29 14:22] LABS: MANUAL DIFFERENTIAL MANUAL DIFFERENTIAL (MANUAL DIFF)
[2020-01-29 14:38] LABS: 25-OH Vitamin D, Total 51.5 ng/mL (30-100)
[2020-01-29 14:39] LABS: Free T4 (Free Thyroxine) 1.43 ng/dl (0.78-2.19)
[2020-01-29 14:52] LABS: Thyroid Stimulating Hormone 1.64 uIU/mL (0.465-4.68)
[2020-01-29 15:14] LABS: Lymphocytes % 19 % (10-50); Monocytes % 2 % (2-9); Neutrophils % 79 % (42-76); Platelet Estimate Normal; RBC Morphology Normal; Total Cells Counted 100
== END ==
PROVIDERS: Visit Provider Emergency Medicine
DX: I10 Essential (primary) hypertension (principal); E55.9 Vitamin D deficiency, unspecified; Z79.899 Other long term (current) drug therapy
CPT/HCPCS: 80053; 80061; 82306; 84439; 84443; 85007; 85025

== ENCOUNTER → 2020-02-10 08:46 | Outpatient (CLI) | payer BC, SELFPAY ==
--- NOTE | 2020-02-10 08:47 | MM_ITS ---
PROCEDURE: MM DIG SCREENING MAMM BI W/CAD Digital Breast Tomosynthesis Included CLINICAL INDICATION: screening There is a history of breast cancer in the patient's mother paternal and maternal aunts and maternal grandmother and great grandmother COMPARISON: No exams were available for comparison TECHNIQUE: Standard CC and MLO images and 3D Tomosynthesis was obtained. R2 CAD reviewed. FINDINGS: Scattered diffuse fibroglandular densities are seen throughout both breast and the findings are fairly symmetrical bilaterally. No suspicious lesion and no suspicious microcalcifications. There are small fatty replaced nodes in both axilla. IMPRESSION: Fibrofatty parenchyma with no suspicious lesions seen BI-RAD Category: 1 Negative FOLLOW-UP: 1YR 1 Year Follow-up (A letter has been sent to the patient regarding results of the study.) Dictated Dr. Nino Frazier MD 02/12/2020 12:28 Dr. Nino Wooten MD in [place] 02/12/2020 12:28
== END ==
PROVIDERS: PCP Emergency Medicine; Visit Provider Emergency Medicine
DX: Z12.31 Encounter for screening mammogram for malignant neoplasm of breast (principal); I10 Essential (primary) hypertension
CPT/HCPCS: 77063; 77067

== ENCOUNTER → 2020-02-26 14:43 | Outpatient (CLI) | payer BC, SELFPAY ==
[2020-02-26 19:22] LABS: Coronavirus 19 IgG Antibody Negative (Negative); Coronavirus 19 IgM Antibody Negative (Negative)
== END ==
PROVIDERS: Visit Provider Internal Medicine Gastroenterology
DX: Z01.818 Encounter for other preprocedural examination (principal)
CPT/HCPCS: 36415; 86328

== ENCOUNTER 2020-02-29 11:09 | Day surgery (SDC) | payer BC, SELFPAY ==
[2020-02-29 11:36] VITALS: BP 105/68; PULSE 75; RESP 18; TEMP 36.2; O2SAT 99; BMI 25.4
--- NOTE | 2020-02-29 12:05 | HMH.ANESCL ---
[facility] Anesthesia Checklist - Patient Identification Patient Identification: Arm Band, Verbal (Name & ) - Structural Data Admitted From: Home Planned Operative Procedure/s: EGD/Colonoscopy Consent for Planned Operative Procedure(s) Verified: Yes Verified Documents: Surgical Consent, History and Physical - NPO Status Verified Time NPO: 00:00 - Chart Verification Results Verified: CBC, BMP - Additional verifications Anesthesia Reactions: No Hx Blood Transfusions: No Blood Transfusion Reaction: No - Airway Assessment C-Spine Mobility Assessed: Yes TMJ Mobility Assessed: Yes Dentition: Good Dentition - Neurological Assessment Level of Consciousness: Awake, Alert, Appropriate, Follows Commands Hx Seizures: No Numbness or tingling in extremities: No - Anesthesia Plan Anesthesia Risk discussed: Yes Anesthesia Plan: Verified ASA Class: III Anesthesia Type: MAC [facility] History I have reviewed the patient's past medical history: Yes Medical History: Reports:: Anxiety, Chronic Obstructive Pulmonary Disease (COPD), Depression, Gastroesophageal Reflux Disease(GERD), Hyperlipidemia, Hypertension, Palpitations Denies:: Cancer, Diabetes Mellitus Type 1, Diabetes Mellitus Type 2, Internal Pacemaker, MRSA, Seizures *Have you ever received a pneumonia vaccine?: No *Have you received a flu vaccine this season?: Yes Other Medical History: Reports: Hypothyroidism. Denies: Blood Transfusion Reaction Comment:: Colitis Anesthesia experience/problems:: PONV Other Surgeries: Yes: Cholecystectomy, Colonoscopy, , EGD, Other (pre cancer mole removed, back surgery 2017). No: Pacemaker Amputation: No Fractures: Yes - *Social History Smoking Status: Current every day smoker Tobacco Type: cigarettes # Packs/Day (cigarettes): 1 Alcohol Intake: current Alcohol Intake Frequency:: 0-2 drinks per day Substance Use Type: denies use *Occupational Status:: other Housing: house Household Members: other *Travel in the last 8 weeks: None - Psychiatric History Pschychiatric History:: Reports:: Anxiety, Depression Family Hx:: Diabetes, Hypertension, Cancer
[2020-02-29 12:34] VITALS: O2SAT 97
--- NOTE | 2020-02-29 12:58 | P.PCN_ITS ---
[facility] Procedure Note Procedure Note:: Upper Endoscopy Procedure Report: Esophagogastroduodenoscopy with cold biopsies Endoscopost: Jeffrey Caldera II, MD Referring Physician: Thee Isaac MD Date of Procedure: February 29, 2020 Equipment: Olympus GIF 180 standard upper endoscope Sedation: MAC sedation Indications: Mrs. Kebede is a 54-year-old female who is here for diagnostic upper endoscopy secondary to longstanding dyspepsia. She has had epigastric abdominal pain and some lower abdominal discomfort. She continues to have heartburn and reflux despite Prilosec (omeprazole) 40 mg daily. Zantac was discontinued. She reports nausea, early satiety, belching and bloating. She has occasional globus sensation. She reports irregular bowel function with diarrhea that alternates with constipation. She reports no melena or weight loss. Her last upper endoscopy and colonoscopy were approximately 5 years ago. Procedure: Prior to the procedure, a history and physical exam was performed, and patient's medications and allergies were reviewed. The risks, benefits and alternatives of the sedation and procedure were discussed with the patient. All questions were answered and informed consent was obtained. The patient was brought to the procedure room. Patient identification and proposed procedure were verified by the physician and the nurse. The patient was placed in a left lateral decubitus position and the scope was passed under direct vision. Throughout the procedure, the patient's blood pressure, pulse, and oxygen saturations were monitored continuously. The upper GI endoscopy was accomplished without difficulty. The patient tolerated the procedure well. Findings: The scope was passed directly into the upper esophagus and advanced to the third portion of the duodenum. The post bulbar duodenum and duodenal bulb were normal with normal mucosa and conniventes. Cold biopsies were taken from the post bulbar duodenum to rule out celiac disease. The scope was withdrawn through a normal duodenal bulb and pylorus into the stomach. There was some bile reflux with linear reactive gastropathy of the antrum and body. The remainder of the antrum, body and fundus of the stomach were grossly normal. Upon retroflexion there was a very small 1 to 2 cm sliding hiatal hernia. 2 biopsies were taken in the antrum and along the lesser curvature for histology to rule out gastritis and/or H pylori. The scope was then withdrawn into the esophagus. There was a serrated Z line but there was no evidence of reflux eso phagitis or Khan's. There was no Schatzki's ring. There were some tertiary contractions and evidence of moderate esophageal dysmotility. The remainder of the esophageal mucosa was normal. Impression: 1. Nonerosive GERD with moderate esophageal dysmotility and very small sliding 1 to 2 cm hiatal hernia 2. Bile reflux with linear reactive gastropathy Plan: The patient does have functional dyspepsia and functional bowel disease. We will discuss additional dietary measures and treatment options. I will proceed with colonoscopy for further evaluation.
--- NOTE | 2020-02-29 13:16 | HMH.PROC ---
[facility] Procedure Note Procedure Note:: Colonoscopy Procedure Report: Colonoscopy with cold biopsies Endoscopist: Jeffrey Caldera II, MD Referring physician: Thee Isaac MD Date of Procedure: February 29, 2020 Equipment: Olympus 180 variable stiffness pediatric colonoscope Sedation: MAC sedation Indication: Mrs. Kebede is a 54-year-old female who is here for diagnostic colonoscopy. The patient has had dyspepsia and some lower abdominal pain and discomfort. She reports irregular bowel function with diarrhea that often alternates with constipation. She reports no rectal bleeding, weight loss or family history of colitis or Crohn's disease. She does state that her maternal grandfather had colon cancer. She does report moderate bloating and gassiness. She does take hydrocodone 4 times daily. Her last colonoscopy was 4 years ago. Procedure: Prior to the procedure, a history and physical exam was performed, and patient's medications and allergies were reviewed. The risks, benefits and alternatives of the sedation and procedure were discussed with the patient. All questions were answered and informed consent was obtained. The patient was brought to the procedure room. Patient identification and proposed procedure were verified by the physician and the nurse. The patient was placed in a left lateral decubitus position and the scope was passed under direct vision. Throughout the procedure, the patient's blood pressure, pulse, and oxygen saturations were monitored continuously. The colonoscopy was accomplished without difficulty. The patient tolerated the procedure well. Findings: On digital rectal examination there was normal rectal tone. There were no external hemorrhoids. The colonoscope was introduced through the anal canal to the rectum and advanced to the cecum. The ileocecal valve and appendiceal orifice were identified. The scope was advanced a short distance into the ileum which appeared grossly normal. The scope was then withdrawn into the colon. The cecum, ascending and transverse colon and mucosa were grossly normal. There were scattered diverticuli throughout the descending and sigmoid colon (LEFT colon). There was mild haustral edema of the sigmoid colon suggestive of some mild diverticular associated colitis or mild chronic diverticulitis. Cold biopsies were obtained from the sigmoid colon. The rectum itself was normal. Upon retroflexion within the rectum there were grade 1 internal hemorrhoids. The preparation was excellent throughout with [place] Preparation Score of 9. The cecal time was 12 minutes. Impression: 1. Left-sided diverticulosis with mild chronic sigmoid diverticulitis or diverticular associated colitis 2. Grade 1 internal hemorrhoids Plan: I will follow-up the biopsies. We will discuss dietary measures and treatment options. The patient will not require surveillance colonoscopy again for 10 years by ACS guidelines.
[2020-02-29 13:18] VITALS: BP 95/47; PULSE 76; RESP 12; TEMP 36.4; O2SAT 98
[2020-02-29 13:28] VITALS: BP 95/63; PULSE 81; RESP 16; O2SAT 99
[2020-02-29 13:38] VITALS: BP 92/71; PULSE 71; RESP 16; O2SAT 96
[2020-02-29 13:48] VITALS: BP 108/65; RESP 16; TEMP 36.4
== END 2020-02-29 13:53 | disposition home or self-care (01) ==
LOC: OUTP 11:11
PROVIDERS: PCP Emergency Medicine; Visit Provider Internal Medicine Gastroenterology
PROC: 0DJ08ZZ Inspection of Upper Intestinal Tract, Via Natural or Artificial Opening Endoscopic (ICD-10-PCS; CPT 43235; principal; 2020-02-29 12:30)
DX: Z79.891 Long term (current) use of opiate analgesic; K57.30 Diverticulosis of large intestine without perforation or abscess without bleeding; K64.0 First degree hemorrhoids; K22.4 Dyskinesia of esophagus; K21.9 Gastro-esophageal reflux disease without esophagitis; K31.9 Disease of stomach and duodenum, unspecified; K44.9 Diaphragmatic hernia without obstruction or gangrene; J44.9 Chronic obstructive pulmonary disease, unspecified; E78.5 Hyperlipidemia, unspecified; I10 Essential (primary) hypertension; R00.2 Palpitations; F41.9 Anxiety disorder, unspecified
CPT/HCPCS: 45380; 43239

== ENCOUNTER 2020-04-01 13:23 | Emergency (ER) | payer BC, SELFPAY ==
[2020-04-01 13:31] VITALS: BP 126/72; PULSE 89; RESP 20; TEMP 36.6; O2SAT 100; BMI 25.4
--- NOTE | 2020-04-01 13:49 | HMH.EDUTC ---
[facility] [place] Clinical Impression: COPD with exacerbation Disposition: Home, Self-Care Condition on Discharge: Good Instructions: DI for Chronic Obstructive Pulmonary Disease Additional Instructions: Drink plenty of fluids. Take tylenol or ibuprofen for pain or fever. Take the medications as directed. Follow up with your regular doctor. GO TO THE ER FOR ANY WORSENING SYMPTOMS FOLLOW THE DIRECTIONS ON THE COVID-19 HAND OUT THAT WE GAVE YOU REGARDING SELF-ISOLATION UNTIL YOU KNOW YOUR COVID-19 RESULTS Prescriptions: Promethazine/Dextromethorphan [Promethazine-Dm Syrup] 5 ml PO Q6HP PRN #240 syrup PRN Reason: Cough Transmission Status: Received by [facility] methylPREDNISolone [Medrol] 4 mg PO DIRECTED 6 Days #21 tab.ds.pk Transmission Status: Received by [facility] Azithromycin [Z-Jem 250mg Tab*] 250 mg PO UD DOSE PK #6 tab Transmission Status: Received by [facility] Referrals: Thee Isaac MD [Primary Care Provider] - Time of Disposition: 14:42 Medical Decision Making - Medical Records Medical records reviewed: No: I reviewed the patient's medical records. - [place] Inquiry Pt receiving controlled substance: No Vital Signs: 04/01/20 13:31 04/01/20 14:55 Temperature 97.9 F 97.9 F Temperature Source Oral Oral Pulse Rate 89 Pulse Rate [Radial] 89 Respiratory Rate 20 20 Blood Pressure 126/72 Blood Pressure [Right Arm] 126/72 Blood Pressure Mean [Right Arm] 90 Blood Pressure Source Automatic Cuff Blood Pressure Source [Right Arm] Automatic Cuff Blood Pressure Position Sitting Blood Pressure Position [Right Arm] Sitting 02 Sat by Pulse Oximetry 100 Oxygen Delivery Method Room Air Room Air Orders (Tests/Meds): ED MEDICATIONS Discontinued Medications Generic Name Dose Route Start Last Admin Trade Name Freq PRN Reason Stop Dose Admin Ceftriaxone Sodium 1 gm 04/01/20 14:04/01/20 14:26 Rocephin 1gm Vial IM 04/01/20 14:26 1 gm ONCE ONE Administration Protocol Lidocaine HCl 0 ml 04/01/20 14:25 04/01/20 14:26 Lidocaine 1% 10ml Mdv IM 04/01/20 14:26 2.1 ml ONCE ONE Administration Methylprednisolone Sodium Succinate 125 mg 04/01/20 14:04/01/20 14:26 Solu-Medrol 125mg/2ml Vial IM 04/01/20 14:26 125 mg ONCE ONE Administration ORDERS Category Date Time Status Covid-19 Nasal PCR Sendout Tom Routine Lab 04/01/20 13:40 Received - Radiology Data #1 Image(s): Chest Image Reviewed: Yes I reviewed the patient's radiology image Preliminary Findings: No Infiltrates Seen [facility] [place] - General Stated complaint: sinus bronch Time Seen by Provider: 04/01/20 13:51 Mode of Arrival: Ambulatory Source of Information: Patient Limitations: No Limitations Description of Symptoms (Recalled from Triage Doc. by RN): sinus infection, possible bronchitis, COVID exposure 2 weeks ago. HEENT Symptoms (Recalled from RN notes): Yes Resp Symptoms (Recalled from RN notes): Yes Skin Symptoms (Recalled from RN notes): No MS Symptoms (Recalled from RN notes): No Functional Status (Recalled from RN notes): wnl - History of Present Illness Provider Complaint: She c/o 4 days of worsening cough and congestion. She has a history of copd. She continues to smoke cigarettes. She was exposed to COVID-19 thru a coworker 2 weeks ago. - Related Data Home Medications Medication Instructions Recorded Confirmed aspirin 81 mg tablet,delayed 81 mg PO DAILY 03/13/19 03/29/20 release omeprazole 40 mg capsule,delayed 40 mg PO DAILY 12/18/19 03/29/20 release Atorvastatin Calcium [Lipitor 80mg 80 mg PO QHS 02/23/20 03/29/20 Tablet*] Fluconazole 150 mg PO .QOD 02/23/20 03/29/20 Fluticasone Propionate 1 spray INTRANASAL DAILY 02/23/20 03/29/20 Loratadine [Allergy Relief] 10 mg PO DAILY 02/23/20 03/29/20 Losartan Potassium [Cozaar 50mg 50 mg PO DAILY 02/23/20 03/29/20 Tablets] Spironolactone [Spironolactone 25
--- NOTE | 2020-04-01 13:56 | XR_ITS ---
PROCEDURE: XR CHEST 2V CLINICAL HISTORY: cough, shortness of breath COMPARISON: CR CXR CHEST(2 VIEWS-NOT PORTABLE) from 01/19/2015 CR CXR CHEST(2 VIEWS-NOT PORTABLE) from 03/12/2016 CR CXR CHEST(2 VIEWS-NOT PORTABLE) from 08/29/[address] CHEST W/ CONTRAST from 11/15/2016 FINDINGS: The cardiomediastinal silhouette and pulmonary vascularity are within normal limits. The lungs are clear without infiltrates, suspicious nodules, or pleural effusions. There has been an interval kyphoplasty at T7 and T5 with compression deformities at both of these levels most severe at T7 with vertebra plana at T7. There is some extrusion of the methylmethacrylate along the right lateral aspect at T5. There is also wedging at T12 which has developed since the previous exam with loss of height anteriorly of approximately 40 percent. IMPRESSION: Prior kyphoplasty at T5 and T7 with compression changes severe at T7 Compressive changes also at T12 age indeterminate not readily apparent on 08/29/2016 Dictated by: Douglas Mendez MD 04/01/2020 15:41 Douglas Mendez MD in [place] 04/01/2020 15:41
[2020-04-01 14:55] VITALS: BP 126/72; PULSE 89; RESP 20; TEMP 36.6; O2SAT 100
[2020-04-02 18:16] LABS: Covid-19 Nasal PCR Sendout Lex NOT DETECTED
== END 2020-04-01 14:57 | disposition home or self-care (01) ==
PROVIDERS: Emergency Provider Nurse Practitioner Family; PCP Emergency Medicine
DX: J44.1 Chronic obstructive pulmonary disease with (acute) exacerbation (principal); Z20.828 Contact with and (suspected) exposure to other viral communicable diseases; F41.8 Other specified anxiety disorders; K21.9 Gastro-esophageal reflux disease without esophagitis; I10 Essential (primary) hypertension; E78.5 Hyperlipidemia, unspecified; F17.210 Nicotine dependence, cigarettes, uncomplicated; Z91.040 Latex allergy status; Z88.2 Allergy status to sulfonamides; Z90.49 Acquired absence of other specified parts of digestive tract; Z79.899 Other long term (current) drug therapy
CPT/HCPCS: 71046; 96372; 99202; U0004

== ENCOUNTER → 2020-04-22 08:09 | Outpatient (CLI) | payer BC, SELFPAY ==
--- NOTE | 2020-04-22 08:12 | CT_ITS ---
PROCEDURE: CT SINUS WO CON CLINICAL HISTORY: Chronic Sinusitis soa no prior COMPARISON: No exams were available for comparison TECHNIQUE: Axial images obtained with sagittal and coronal reformats. All CT scans at the facility use one or more dose reduction, viz: automated exposure control, ma/kV adjustment per patient size (including targeted exams where dose is matched to indication, i.e. head), or iterative reconstruction technique. FINDINGS: The frontal sinus, maxillary sinus, and sphenoid sinus has an unremarkable appearance. There is mild opacification of the left ethmoid air cells posteriorly. Small osteoma measuring 3 mm is present in the mid aspect of the right ethmoid air cells. The ostiomeatal complexes are patent. There are small bilateral aleisha bullosa left larger than right. There is mild rightward nasal septal deviation. The temporomandibular joints have an unremarkable appearance. The orbits appear unremarkable. The mastoid sinuses are unremarkable in the middle ears are aerated. IMPRESSION: Mild left ethmoid sinus disease with mild rightward nasal septal deviation and bilateral aleisha bullosa left that larger than right. Dictated by: Douglas Mendez MD 04/23/2020 09:48 Douglas Mendez MD in [place] 04/23/2020 09:48
== END ==
PROVIDERS: PCP Emergency Medicine; Visit Provider Internal Medicine Pulmonary Disease
DX: J32.9 Chronic sinusitis, unspecified (principal); R06.00 Dyspnea, unspecified
CPT/HCPCS: 70486; 94060; 94618; 94726; 94729

== ENCOUNTER → 2020-05-17 13:48 | Outpatient (CLI) | payer BC, SELFPAY ==
--- NOTE | 2020-05-17 13:52 | XR_ITS ---
PROCEDURE: XR CHEST 2V CLINICAL HISTORY: SOB COMPARISON: CR CXR CHEST(2 VIEWS-NOT PORTABLE) from 03/12/2016 CR CXR CHEST(2 VIEWS-NOT PORTABLE) from 08/29/[address] CHEST W/ CONTRAST from 11/15/2016 CR XR CHEST 2V from 04/01/2020 FINDINGS: The cardiomediastinal silhouette and pulmonary vascularity are within normal limits. The lungs are clear without infiltrates, suspicious nodules, or pleural effusions. No acute bony abnormalities. There are 2 compression fractures midthoracic spine with vertebroplasties in place. There is generalized osteopenia of the thoracic spine with mild kyphotic curvature. IMPRESSION: No acute findings. Dictated by: Dr. Nino Wooten MD 05/17/2020 14:18 Dr. Nino Wooten MD in [place] 05/17/2020 14:18
== END ==
PROVIDERS: PCP Emergency Medicine; Visit Provider Internal Medicine Pulmonary Disease
DX: J18.9 Pneumonia, unspecified organism (principal)
CPT/HCPCS: 71046

== ENCOUNTER → 2020-08-01 11:03 | Outpatient (CLI) | payer BC, SELFPAY ==
--- NOTE | 2020-08-01 11:04 | CA_ITS ---
APPROVED REPORT EXAM: Comprehensive 2D, Doppler, and color-flow Echocardiogram [employer] Operator: Fransisca Maria RCS, RVS Ht: 5 ft 0 in Wt: 141lbs BSA: 1.61 BP: 110/70 mmHg Indications: PRE-OP, MOD MR, COPD, SOA, PALPITATIONS, GERD, Questionable MVP Echo Enhancing Agent Comments: Technically Limited due to lung interference. 2D Dimensions LVOT 1.79 cm (M/F) 1.5-2.5 M-Mode Dimensions LA Diam 3.52 cm (1.9-4.0) LVDd 5.23 cm (3.5-5.7) Ao Diam 3.05 cm (2.0-3.7) LVDs 3.82 cm (3.5-5.7) IVSd 0.96 cm (0.6-1.1) PWd 0.86 cm (0.6-1.1) EF (Teich) 52.20% EPSs 0.43 cm FS 27.00% EDV (Teich) 131.20 mL ESV (Teich) 62.70 mL LV Diastology E Decel Time 200.00 (160-240 msec) E/A Ratio 1.12 MED E' 8.40 (< 7 cm/sec) MED A' 10.50 cm/s E'/MED E' Ratio 10.74 (>14) LAT E' 8.10 (<10 cm/sec) LAT A' 10.80 cm/s E/LAT E' Ratio 11.14 (>14) Pulm Vein s 52.00 cm/sec Pulm Vein d 16.00 cm/sec Ar-A Duration 93.00 msec Aortic Valve AO Peak GR. 6.40 mmHg Mitral Valve MV A Velocity 80.00 (40-130 cm/s) E/A Ratio 1.12 MV Decel. Time 200.00 (160-240 ms) Pulmonary Valve PV Peak Velocity 75.00 (50-150 cm/s) Tricuspid Valve TR P. Velocity 256.00 cm/s RAP Estimate 10.00 mmHg RVSP 36.30 mmHg Left Ventricle Left atrium is mildly enlarged, left ventricle is normal size, visually estimated ejection fraction 55% with no regional wall motion abnormality, diastolic parameters are inconclusive. Right Ventricle Right atrium and right ventricle are mildly enlarged with normal contractility. Aortic Valve Aortic valve is minimally thickened and fibrosed, there is no aortic stenosis or aortic insufficiency. Mitral Valve Mitral valve leaflets are not well visualized, grossly there is no mitral stenosis or significant mitral regurgitation. At most there is trace mitral regurgitation. Tricuspid Valve Tricuspid valve is grossly normal, there is trace tricuspid regurgitation, calculated right ventricular systolic pressure 35 mmHg. Pulmonic Valve Pulmonic valve is poorly visualized. Great Vessels Aortic root is normal size. Pericardium No significant pericardial effusion noted. Conclusion 1. Mild biatrial enlargement, normal left ventricular size, visually estimated ejection fraction 55% with no regional wall motion abnormality, diastolic parameters are inconclusive. 2. Mildly enlarged right ventricle with normal contractility. 3. Trace mitral and tricuspid regurgitation. Calculated right ventricular systolic pressure 35 mmHg. 4. No significant pericardial effusion noted. Electronically signed by : Michele Duval, 08/02/2020 05:43:36
== END ==
PROVIDERS: PCP Emergency Medicine; Visit Provider Nurse Practitioner Family
DX: R06.02 Shortness of breath (principal)
CPT/HCPCS: 93306

== ENCOUNTER → 2020-08-16 11:58 | Outpatient (CLI) | payer BC, SELFPAY ==
[2020-08-16 12:53] LABS: Basophils # 0.1 K/mm3 (0-0.2); Basophils % 0.4 % (0.1-2.0); Eosinophils # 0.1 K/mm3 (0.0-0.4); Eosinophils % 0.6 % (0.1-12.0); Hematocrit 43.3 % (37.0-47.0); Hemoglobin 14.5 g/dL (12.2-16.2); Lymphocytes # 3.2 K/mm3 (0.7-4.5); Lymphocytes % 30.1 % (10-50); Mean Corpuscular HGB Conc 33.4 g/dL (31.8-35.4); Mean Corpuscular Volume 95.8 fl (81-99); Mean Platelet Volume 7.9 fl (7.4-10.4); Monocytes # 0.4 K/mm3 (0.1-1.0); Monocytes % 3.8 % (1.7-9.3); Neutrophils # 6.9 K/mm3 (1.8-7.8); Neutrophils % 65.1 % (37.0-80.0); Platelet Count 371 K/mm3 (142-424); Red Blood Count 4.52 M/mm3 (4.20-5.40); Red Cell Distribution Width 13.4 % (11.5-17.5); White Blood Count 10.6 K/mm3 (4.8-10.8)
[2020-08-16 13:05] LABS: Chloride 103 mmol/L (98-107)
[2020-08-16 13:06] LABS: Potassium 4.6 mmoL/L (3.5-5.1); Sodium 138 mmol/L (136-145)
[2020-08-16 13:08] LABS: Alanine Aminotransferase 16 U/L (12-78); Aspartate Amino Transferase 23 U/L (14-36); Bilirubin,Total 0.3 mg/dl (0.2-1.3); Blood Urea Nitrogen 7 mg/dl (7-17); Estimated Glomerular Filt Rate 105 ml/min (>60); GFR (African American) 127 ML/MIN (>60)
[2020-08-16 13:09] LABS: Albumin Level 4.9 g/dl (3.5-5.0); Albumin/Globulin Ratio 1.6 (1.1-1.8); Alkaline Phosphatase 84 U/L (38-126); Anion Gap 13.6 mEq/L (5-15); Calcium 10.3 mg/dl (8.4-10.2); Carbon Dioxide 26 mmol/L (22.0-30.0); Glucose 91 mg/dl (74-100); Total Protein,Serum 7.9 g/dl (6.3-8.2)
[2020-08-16 13:25] LABS: Coronavirus 19 IgG Antibody Negative (Negative); Coronavirus 19 IgM Antibody Negative (Negative)
== END ==
PROVIDERS: Visit Provider Otolaryngology
DX: Z01.812 Encounter for preprocedural laboratory examination (principal); Z20.822 Contact with and (suspected) exposure to COVID-19; J32.9 Chronic sinusitis, unspecified; J34.2 Deviated nasal septum; R09.81 Nasal congestion; H61.22 Impacted cerumen, left ear
CPT/HCPCS: 36415; 80053; 85025; 86328

== ENCOUNTER → 2020-08-24 11:06 | Outpatient (CLI) | payer BC, SELFPAY ==
--- NOTE | 2020-08-24 11:29 | ECG_ITS ---
APPROVED REPORT Exam: Resting ECG HR:64 bpm ECG Measurements Heart Rate 64 AXES NE 146 P 53 QRSd 90 QRS 57 QT 384 T 63 QTc 396 Conclusion Normal sinus rhythm ST & T wave abnormality, unchanged from prior Abnormal ECG Electronically signed by : Patricio Washington, 08/24/2020 14:20:43
[2020-08-24 11:33] LABS: Basophils # 0.1 K/mm3 (0-0.2); Basophils % 0.5 % (0.1-2.0); Eosinophils # 0.1 K/mm3 (0.0-0.4); Hematocrit 43.1 % (37.0-47.0); Lymphocytes # 3.7 K/mm3 (0.7-4.5); Lymphocytes % 32.4 % (10-50); Mean Corpuscular HGB Conc 32.5 g/dL (31.8-35.4); Mean Corpuscular Hemoglobin 31.5 pg (27.0-31.2); Mean Corpuscular Volume 97.1 fl (81-99); Mean Platelet Volume 7.5 fl (7.4-10.4); Monocytes # 0.6 K/mm3 (0.1-1.0); Monocytes % 5.2 % (1.7-9.3); Neutrophils # 6.9 K/mm3 (1.8-7.8); Platelet Count 347 K/mm3 (142-424); Red Blood Count 4.44 M/mm3 (4.20-5.40); Red Cell Distribution Width 13.6 % (11.5-17.5); White Blood Count 11.4 K/mm3 (4.8-10.8)
[2020-08-24 12:12] LABS: Alanine Aminotransferase 15 U/L (12-78); Albumin Level 4.7 g/dl (3.5-5.0); Albumin/Globulin Ratio 1.7 (1.1-1.8); Alkaline Phosphatase 78 U/L (38-126); Anion Gap 11.6 mEq/L (5-15); Aspartate Amino Transferase 23 U/L (14-36); Bilirubin,Total 0.4 mg/dl (0.2-1.3); Blood Urea Nitrogen 10 mg/dl (7-17); Calcium 10.3 mg/dl (8.4-10.2); Carbon Dioxide 29 mmol/L (22.0-30.0); Chloride 102 mmol/L (98-107); Estimated Glomerular Filt Rate 88 ml/min (>60); GFR (African American) 106 ML/MIN (>60); Globulin 2.7 g/dL (1.3-3.2); Glucose 98 mg/dl (74-100); Potassium 4.6 mmoL/L (3.5-5.1); Sodium 138 mmol/L (136-145); Total Protein,Serum 7.4 g/dl (6.3-8.2)
[2020-08-24 12:50] LABS: Coronavirus 19 IgG Antibody Negative (Negative); Coronavirus 19 IgM Antibody Negative (Negative)
== END ==
PROVIDERS: Visit Provider Otolaryngology
DX: Z01.818 Encounter for other preprocedural examination (principal); Z20.822 Contact with and (suspected) exposure to COVID-19; J32.9 Chronic sinusitis, unspecified; J34.2 Deviated nasal septum; R09.81 Nasal congestion; H61.22 Impacted cerumen, left ear
CPT/HCPCS: 36415; 80053; 85025; 86328; 93005

== ENCOUNTER 2020-08-25 06:57 | Day surgery (SDC) | payer BC, SELFPAY ==
[2020-08-15 10:27] VITALS: BMI 26.5
--- NOTE | 2020-08-18 06:04 | SUR.PHASEII ---
pt called at 0602 to cancel , pt was on the way and has to turn around due to weather
[2020-08-25] VITALS (12 sets, daily range): BP systolic 99–122; BP diastolic 50–76; PULSE 75–88; RESP 18–20; TEMP 36.1–37.2; O2SAT 92–98
--- NOTE | 2020-08-25 09:24 | HMH.ANESCL ---
[facility] Anesthesia Checklist - Patient Identification Patient Identification: Arm Band, Verbal (Name & ) - Structural Data Admitted From: Home Planned Operative Procedure/s: ear tube left septoplasty Consent for Planned Operative Procedure(s) Verified: Yes Verified Documents: Surgical Consent - Additional verifications Anesthesia Reactions: No Hx Blood Transfusions: No Blood Transfusion Reaction: No - Airway Assessment Dentition: Good Dentition - Anesthesia Plan Anesthesia Type: General [facility] History I have reviewed the patient's past medical history: Yes Medical History: Reports:: Anxiety, Chronic Obstructive Pulmonary Disease (COPD), Depression, Gastroesophageal Reflux Disease(GERD), Hyperlipidemia, Hypertension, Palpitations Denies:: Cancer, Diabetes Mellitus Type 1, Diabetes Mellitus Type 2, Internal Pacemaker, MRSA, Seizures *Have you ever received a pneumonia vaccine?: Yes *Have you received a flu vaccine this season?: Yes Other Medical History: Reports: Hypothyroidism. Denies: Blood Transfusion Reaction Anesthesia experience/problems:: none Laterality Cases: Left: Total Hip Replacement Other Surgeries: Yes: Cholecystectomy, Colonoscopy, , EGD, Other (pre cancer mole removed, back surgery 2017). No: Pacemaker Amputation: No Fractures: Yes - *Social History Last grade of school completed: High school graduate Smoking Status: Current every day smoker Tobacco Type: cigarettes # Packs/Day (cigarettes): 1 Alcohol Intake: current Alcohol Intake Frequency:: holidays/special occasions only Substance Use Type: denies use *Occupational Status:: unemployed Housing: house Household Members: other *Travel in the last 8 weeks: None - Psychiatric History Pschychiatric History:: Reports:: Anxiety, Depression Family Hx:: Cancer, Diabetes, Kidney Disease, Stroke
--- NOTE | 2020-08-25 10:09 | HMH.OPNOTE ---
Date of procedure: 08/25/20 Pre-op Diagnosis:: 1. Deviated nasal septum to the left with 90% nasal airflow blockage 2. Hypertrophied inferior turbinates 3. Chronic bilateral ethmoid sinusitis 4. Impacted tube and impacted cerumen left ear Post-op Diagnosis:: Same Procedure performed:: 1. Removal of impacted tube and impacted cerumen in the left ear and placement of a left ventilation tube myringotomy and tube 2. Nasal Septoplasty 3. Turbinectomy Surgeon:: Domingo Pollack MD EDITING COMPUTER PUBLISHER:: Other Anesthesia: GETA Estimated blood loss (mL): 5 Operative findings:: 1. Chronic Sinusitis 2. Deviated Nasal Septum 3. Hypertrophy of Turbinates 4. Impacted Cerumen of Left ear and ear tube Operative note:: With the patient under general anesthesia using the operating microscope for all the procedure the left ear was prepped and draped there was a large amount of impacted cerumen surrounding the left ear tube that had been placed previously and all of the cerumen was removed it was then possible to remove the impacted tube there was some retraction of the left tympanic membrane in keeping with left serous otitis media and accordingly an incision was made in the left tympanic membrane and serous fluid was aspirated and a Truine T-tube was placed Ciprodex drops were placed. Patient was then repositioned in the face was prepped and draped the nose was decongested with topical cocaine pledgets and 4 cc of 2% lidocaine with epi were injected into the nasal antral monzon and septum. A left hemitransfixion incision incision was made and the mucoperichondrial and mucoperiosteum was elevated from both sides of the nasal septum. The quadrangular cartilage was trimmed inferiorly posteriorly and anteriorly and a large septal spur was removed. When that was done the septum could be realigned in the midline Surgicel snow was placed between the flaps and the septum was held in the mid line with transfixion and hemitransfixion chromic sutures. Both inferior turbinates were then examined they were hyperplastic a right submucous inferior turbinectomy was done and the turbinate size was reduced by 50% similarly a left submucous turbinectomy was done and the turbinate size was reduced by 50%. Using endoscopic sinus surgical techniques the sinuses were examined there was moderate amount of congestion and mucosal thickening in both ethmoid sinuses the ostiomeatal complexes of the other sinuses were normal. Using dissecting forceps a separate subtotal right ethmoidectomy was done and a moderate amount of polypoid material was submitted. Similarly a left ethmoidectomy was done and moderate amount of polypoid tissue was submitted bleeding was stopped with cautery and Surgicel snow was placed in both ethmoid areas. The total blood loss for all the procedure was less than 5 cc and completely stopped the patient was sent to recovery in good general condition signed Dr. Domingo Pollack MD thank you. Condition: stable Disposition: PACU Complications:: None
--- NOTE | 2020-08-25 10:16 | P.PN_ITS ---
[facility] Anesthesia Record Part I Intake, IV Amount: 1,400 Estimated blood loss (mL): 5 Urine output (mL): 0 Blood Products used (#): none Blood Pressure: 99/67 SaO2: 93 Pulse Rate: 88 Respiratory Rate: 20 Temperature: 97 F Patient is:: Awake Stable to PACU at:: 10:17
== END 2020-08-25 11:42 | disposition home or self-care (01) ==
LOC: OR 06:59
PROVIDERS: PCP Emergency Medicine; Visit Provider Otolaryngology
PROC: (CPT 30520; principal; 2020-08-25 08:15)
DX: J34.2 Deviated nasal septum (principal); J34.3 Hypertrophy of nasal turbinates; J32.2 Chronic ethmoidal sinusitis; H61.22 Impacted cerumen, left ear; Z96.22 Myringotomy tube(s) status; J44.9 Chronic obstructive pulmonary disease, unspecified; K21.9 Gastro-esophageal reflux disease without esophagitis; E78.5 Hyperlipidemia, unspecified; I10 Essential (primary) hypertension; R00.2 Palpitations; F41.9 Anxiety disorder, unspecified; E03.9 Hypothyroidism, unspecified
CPT/HCPCS: 69424; 69990; 30520; 30140; 96374; 96375; J0330; J2405

== ENCOUNTER → 2020-09-21 08:21 | Outpatient (CLI) | payer BC, SELFPAY ==
[2020-09-22 09:23] LABS: Amphetamine/Metha Screen,Urine Negative ng/ml (<1000)
[2020-09-22 09:24] LABS: Barbiturates Screen,Urine Negative ng/ml (<200)
[2020-09-22 09:25] LABS: Benzodiazepines Screen,Urine Negative ng/ml (<200); Cannabinoid Screen,Urine Negative ng/ml (<50)
[2020-09-22 09:26] LABS: Cocaine Screen,Urine Negative ng/ml (<300)
[2020-09-22 09:27] LABS: Methadone Screen,Urine Negative ng/ml (<300)
[2020-09-22 09:28] LABS: Opiate Screen,Urine Positive ng/ml (<300)
[2020-09-22 09:29] LABS: Phencyclidine Screen,Urine Negative ng/ml (<25)
== END ==
PROVIDERS: Visit Provider Emergency Medicine
DX: Z79.899 Other long term (current) drug therapy (principal)
CPT/HCPCS: 80305

== ENCOUNTER → 2020-11-03 14:59 | Outpatient (CLI) | payer BC, SELFPAY ==
[2020-11-03 16:20] LABS: Basophils # 0.1 K/mm3 (0-0.2); Basophils % 0.5 % (0.1-2.0); Eosinophils # 0.2 K/mm3 (0.0-0.4); Eosinophils % 1.3 % (0.1-12.0); Hematocrit 41.3 % (37.0-47.0); Hemoglobin 14.3 g/dL (12.2-16.2); Lymphocytes # 3.9 K/mm3 (0.7-4.5); Lymphocytes % 31.3 % (10-50); Mean Corpuscular HGB Conc 34.5 g/dL (31.8-35.4); Mean Corpuscular Hemoglobin 31.9 pg (27.0-31.2); Mean Corpuscular Volume 92.6 fl (81-99); Mean Platelet Volume 8.5 fl (7.4-10.4); Monocytes # 0.6 K/mm3 (0.1-1.0); Monocytes % 4.8 % (1.7-9.3); Neutrophils # 7.8 K/mm3 (1.8-7.8); Neutrophils % 62.1 % (37.0-80.0); Platelet Count 350 K/mm3 (142-424); Red Blood Count 4.47 M/mm3 (4.20-5.40); White Blood Count 12.6 K/mm3 (4.8-10.8)
[2020-11-03 16:41] LABS: Alanine Aminotransferase 15 U/L (12-78); Albumin Level 4.8 g/dl (3.5-5.0); Alkaline Phosphatase 95 U/L (38-126); Anion Gap 17.3 mEq/L (5-15); Aspartate Amino Transferase 26 U/L (14-36); Bilirubin,Direct 0.1 mg/dl (0.0-0.4); Bilirubin,Indirect 0.2 mg/dL (0.0-0.9); Bilirubin,Total 0.3 mg/dl (0.2-1.3); Bilirubin,Unconjugated 0.2 mg/dL (0.0-1.1); Blood Urea Nitrogen 12 mg/dl (7-17); Carbon Dioxide 20 mmol/L (22.0-30.0); Chloride 106 mmol/L (98-107); Chol/HDL Ratio 4.7 (1-3.5); Cholesterol 199 mg/dl (140-200); Estimated Glomerular Filt Rate 105 ml/min (>60); GFR (African American) 127 ML/MIN (>60); Glucose 100 mg/dl (74-100); HDL Cholesterol 42 mg/dl (40-60); Potassium 4.3 mmoL/L (3.5-5.1); Sodium 139 mmol/L (136-145); Total Protein,Serum 7.3 g/dl (6.3-8.2); Triglycerides 261 mg/dl (30-150); VLDL Cholesterol 52 mg/dL (0-40)
[2020-11-03 16:52] LABS: Direct LDL Cholesterol 110.97 mg/dL (100-129)
[2020-11-03 16:57] LABS: Free T4 (Free Thyroxine) 1.17 ng/dl (0.78-2.19)
[2020-11-03 17:12] LABS: Thyroid Stimulating Hormone 3.07 uIU/mL (0.465-4.68)
== END ==
PROVIDERS: Visit Provider Internal Medicine
DX: I34.0 Nonrheumatic mitral (valve) insufficiency (principal); I10 Essential (primary) hypertension; E78.5 Hyperlipidemia, unspecified; Z72.0 Tobacco use
CPT/HCPCS: 80048; 80061; 80076; 84439; 84443; 85025

== ENCOUNTER → 2021-01-13 17:40 | Outpatient (CLI) | payer BC, SELFPAY ==
[2021-01-13 18:47] LABS: Amphetamine/Metha Screen,Urine Negative ng/ml (<1000)
[2021-01-13 18:48] LABS: Barbiturates Screen,Urine Negative ng/ml (<200); Benzodiazepines Screen,Urine Negative ng/ml (<200)
[2021-01-13 18:49] LABS: Cannabinoid Screen,Urine Negative ng/ml (<50); Cocaine Screen,Urine Negative ng/ml (<300)
[2021-01-13 18:50] LABS: Methadone Screen,Urine Negative ng/ml (<300)
[2021-01-13 18:51] LABS: Opiate Screen,Urine Positive ng/ml (<300); Phencyclidine Screen,Urine Negative ng/ml (<25)
== END ==
PROVIDERS: Visit Provider Emergency Medicine
DX: G89.29 Other chronic pain (principal); M54.9 Dorsalgia, unspecified
CPT/HCPCS: 80305

== ENCOUNTER → 2021-03-29 16:41 | Outpatient (CLI) | payer BC, SELFPAY ==
--- NOTE | 2021-03-29 16:41 | MR_ITS ---
PROCEDURE: MR HEAD/BRAIN WO CON CLINICAL INDICATION: acute on chronic headache, new symptoms COMPARISON: No exams were available for comparison TECHNIQUE: Routine multiplanar multi echo sequences are performed without gadolinium enhancement. FINDINGS: No midline shift, mass effect, intracranial hemorrhage, or hydrocephalus is evident. No evidence of acute infarction or restricted diffusion. Cerebellopontine angles, cerebellum, and mid brain have an unremarkable appearance. The pituitary, optic chiasm, corpus callosum, and craniocervical junction have an unremarkable appearance. No mastoid effusion or sinus air-fluid level. Unremarkable appearing orbits. The hippocampal gyri are unremarkable in the temporal horns are symmetric. IMPRESSION: No acute finding. Negative MRI of the brain without contrast Dictated by: Douglas Mendez MD 03/31/2021 09:14 Douglas Mendez MD in [place] 03/31/2021 09:14
== END ==
PROVIDERS: PCP Emergency Medicine; Visit Provider Nurse Practitioner Family
DX: F11.90 Opioid use, unspecified, uncomplicated (principal); F39 Unspecified mood [affective] disorder; R51.9 Headache, unspecified; G47.00 Insomnia, unspecified; R53.83 Other fatigue
CPT/HCPCS: 70551

== ENCOUNTER → 2021-03-31 14:46 | Outpatient (CLI) | payer BC, SELFPAY ==
[2021-03-31 15:26] LABS: Basophils # 0.1 K/mm3 (0-0.2); Basophils % 0.6 % (0.1-2.0); Eosinophils # 0.1 K/mm3 (0.0-0.4); Eosinophils % 0.4 % (0.1-12.0); Hematocrit 42.9 % (37.0-47.0); Hemoglobin 14.4 g/dL (12.2-16.2); Lymphocytes # 2.4 K/mm3 (0.7-4.5); Lymphocytes % 20.8 % (10-50); Mean Corpuscular HGB Conc 33.6 g/dL (31.8-35.4); Mean Corpuscular Hemoglobin 32.6 pg (27.0-31.2); Mean Platelet Volume 7.8 fl (7.4-10.4); Monocytes # 0.3 K/mm3 (0.1-1.0); Monocytes % 2.9 % (1.7-9.3); Neutrophils # 8.8 K/mm3 (1.8-7.8); Neutrophils % 75.3 % (37.0-80.0); Platelet Count 367 K/mm3 (142-424); Red Blood Count 4.42 M/mm3 (4.20-5.40); Red Cell Distribution Width 13.2 % (11.5-17.5); White Blood Count 11.7 K/mm3 (4.8-10.8)
[2021-03-31 16:24] LABS: Chloride 105 mmol/L (98-107)
[2021-03-31 16:25] LABS: Potassium 4.3 mmoL/L (3.5-5.1); Sodium 139 mmol/L (136-145)
[2021-03-31 16:27] LABS: Alanine Aminotransferase 15 U/L (12-78); Alkaline Phosphatase 92 U/L (38-126); Aspartate Amino Transferase 24 U/L (14-36); Blood Urea Nitrogen 10 mg/dl (7-17); Estimated Glomerular Filt Rate 105 ml/min (>60); GFR (African American) 127 ML/MIN (>60)
[2021-03-31 16:28] LABS: Albumin Level 4.5 g/dl (3.5-5.0); Albumin/Globulin Ratio 1.9 (1.1-1.8); Anion Gap 13.3 mEq/L (5-15); Calcium 9.5 mg/dl (8.4-10.2); Carbon Dioxide 25 mmol/L (22.0-30.0); Globulin 2.4 g/dL (1.3-3.2); Glucose 97 mg/dl (74-100); Total Protein,Serum 6.9 g/dl (6.3-8.2)
[2021-03-31 16:40] LABS: Bilirubin,Total 0.1 mg/dl (0.2-1.3)
[2021-03-31 16:41] LABS: Erythrocyte Sedimentation Rate 18 mm/hr (0-30)
[2021-03-31 16:58] LABS: Thyroid Stimulating Hormone 1.43 uIU/mL (0.465-4.68)
[2021-03-31 18:20] LABS: Folate > 20.00 ng/mL; Vitamin B12 > 1000 pg/mL (239-931)
== END ==
PROVIDERS: Nurse Practitioner Family; Visit Provider Obstetrics & Gynecology
DX: F11.90 Opioid use, unspecified, uncomplicated (principal); F39 Unspecified mood [affective] disorder; R51.9 Headache, unspecified; G47.00 Insomnia, unspecified; R53.83 Other fatigue
CPT/HCPCS: 36415; 80053; 82607; 82746; 83001; 84443; 85025; 85651; 86140

== ENCOUNTER 2021-04-04 10:00 | Outpatient (RCR) | payer BC, SELFPAY | END 2021-04-04 10:05 | disposition home or self-care (01) | LOC: PT 10:00 | PROVIDERS: Visit Provider Nurse Practitioner Family | DX: G43.719 Chronic migraine without aura, intractable, without status migrainosus (principal); G44.009 Cluster headache syndrome, unspecified, not intractable | CPT/HCPCS: 20561; 97010; 97014; 97110; 97163; G0283 ==

== ENCOUNTER → 2021-05-16 18:42 | Outpatient (CLI) | payer BC, SELFPAY ==
[2021-05-16 21:08] LABS: Amphetamine/Metha Screen,Urine Negative ng/ml (<1000); Barbiturates Screen,Urine Negative ng/ml (<200)
[2021-05-16 21:09] LABS: Benzodiazepines Screen,Urine Negative ng/ml (<200)
[2021-05-16 21:10] LABS: Cannabinoid Screen,Urine Negative ng/ml (<50); Cocaine Screen,Urine Negative ng/ml (<300)
[2021-05-16 21:11] LABS: Methadone Screen,Urine Negative ng/ml (<300)
[2021-05-16 21:12] LABS: Opiate Screen,Urine Positive ng/ml (<300); Phencyclidine Screen,Urine Negative ng/ml (<25)
== END ==
PROVIDERS: Visit Provider Emergency Medicine
DX: R82.90 Unspecified abnormal findings in urine (principal); Z79.899 Other long term (current) drug therapy
CPT/HCPCS: 80305; 87086

== ENCOUNTER → 2021-06-28 13:43 | Outpatient (CLI) | payer BC, SELFPAY ==
[2021-06-28 14:31] LABS: Amphetamine/Metha Screen,Urine Negative ng/ml (<1000); Barbiturates Screen,Urine Negative ng/ml (<200)
[2021-06-28 14:32] LABS: Benzodiazepines Screen,Urine Negative ng/ml (<200)
[2021-06-28 14:33] LABS: Cannabinoid Screen,Urine Negative ng/ml (<50); Cocaine Screen,Urine Negative ng/ml (<300)
[2021-06-28 14:34] LABS: Methadone Screen,Urine Negative ng/ml (<300)
[2021-06-28 14:35] LABS: Opiate Screen,Urine Positive ng/ml (<300); Phencyclidine Screen,Urine Negative ng/ml (<25)
== END ==
PROVIDERS: Visit Provider Emergency Medicine
DX: M54.16 Radiculopathy, lumbar region (principal)
CPT/HCPCS: 80305

== ENCOUNTER → 2021-10-30 13:02 | Outpatient (CLI) | payer BC, SELFPAY ==
[2021-10-30 13:47] LABS: Basophils % 0.3 % (0.1-2.0); Eosinophils # 0.1 K/mm3 (0.0-0.4); Eosinophils % 0.7 % (0.1-12.0); Hemoglobin 14.3 g/dL (12.2-16.2); Lymphocytes % 16.4 % (10-50); Mean Corpuscular Hemoglobin 32.2 pg (27.0-31.2); Mean Corpuscular Volume 94.4 fl (81-99); Mean Platelet Volume 7.8 fl (7.4-10.4); Monocytes # 0.3 K/mm3 (0.1-1.0); Monocytes % 2.8 % (1.7-9.3); Neutrophils # 9.5 K/mm3 (1.8-7.8); Neutrophils % 79.8 % (37.0-80.0); Platelet Count 514 K/mm3 (142-424); Red Blood Count 4.45 M/mm3 (4.20-5.40); Red Cell Distribution Width 12.8 % (11.5-17.5); White Blood Count 11.9 K/mm3 (4.8-10.8)
[2021-10-30 14:09] LABS: Alanine Aminotransferase 16 U/L (12-78); Albumin Level 4.6 g/dl (3.5-5.0); Alkaline Phosphatase 86 U/L (38-126); Aspartate Amino Transferase 22 U/L (14-36); Bilirubin,Direct 0.1 mg/dl (0.0-0.4); Bilirubin,Indirect 0.3 mg/dL (0.0-0.9); Bilirubin,Total 0.4 mg/dl (0.2-1.3); Bilirubin,Unconjugated 0.3 mg/dL (0.0-1.1); Blood Urea Nitrogen 12 mg/dl (7-17); Calcium 9.3 mg/dl (8.4-10.2); Carbon Dioxide 24 mmol/L (22.0-30.0); Chloride 100 mmol/L (98-107); Chol/HDL Ratio 5.4 (1-3.5); Cholesterol 267 mg/dl (140-200); Estimated Glomerular Filt Rate 104 ml/min (>60); GFR (African American) 126 ML/MIN (>60); Glucose 90 mg/dl (74-100); HDL Cholesterol 49 mg/dl (40-60); Magnesium 1.9 mg/dl (1.6-2.3); Sodium 132 mmol/L (136-145); Total Protein,Serum 7.2 g/dl (6.3-8.2); Triglycerides 285 mg/dl (30-150); VLDL Cholesterol 57 mg/dL (0-40)
[2021-10-30 14:20] LABS: Direct LDL Cholesterol 157.23 mg/dL (100-129)
[2021-10-30 14:25] LABS: Free T4 (Free Thyroxine) 1.05 ng/dl (0.78-2.19)
[2021-10-30 14:40] LABS: Thyroid Stimulating Hormone 1.26 uIU/mL (0.465-4.68)
== END ==
PROVIDERS: Visit Provider Physician Assistant
DX: R06.00 Dyspnea, unspecified (principal); I10 Essential (primary) hypertension; I34.0 Nonrheumatic mitral (valve) insufficiency; Z72.0 Tobacco use; Z79.899 Other long term (current) drug therapy
CPT/HCPCS: 36415; 80048; 80061; 80076; 83735; 84439; 84443; 85025

== ENCOUNTER → 2021-12-18 16:56 | Outpatient (CLI) | payer BC, SELFPAY ==
[2021-12-18 14:08] LABS: Opiate Screen,Urine Positive ng/ml (<300)
[2021-12-18 14:09] LABS: Amphetamine/Metha Screen,Urine Negative ng/ml (<1000); Barbiturates Screen,Urine Negative ng/ml (<200)
[2021-12-18 14:10] LABS: Benzodiazepines Screen,Urine Negative ng/ml (<200)
[2021-12-18 14:11] LABS: Cannabinoid Screen,Urine Negative ng/ml (<50); Cocaine Screen,Urine Negative ng/ml (<300)
[2021-12-18 14:12] LABS: Methadone Screen,Urine Negative ng/ml (<300)
[2021-12-18 14:13] LABS: Phencyclidine Screen,Urine Negative ng/ml (<25)
== END ==
PROVIDERS: Visit Provider Emergency Medicine
DX: M51.26 Other intervertebral disc displacement, lumbar region (principal)
CPT/HCPCS: 80305

== ENCOUNTER → 2022-02-14 19:17 | Outpatient (CLI) | payer BC, SELFPAY ==
[2022-02-14 15:19] LABS: Benzodiazepines Screen,Urine Negative ng/ml (<200)
[2022-02-14 15:20] LABS: Amphetamine/Metha Screen,Urine Negative ng/ml (<1000); Barbiturates Screen,Urine Negative ng/ml (<200)
[2022-02-14 15:21] LABS: Cannabinoid Screen,Urine Negative ng/ml (<50)
[2022-02-14 15:22] LABS: Cocaine Screen,Urine Negative ng/ml (<300); Methadone Screen,Urine Negative ng/ml (<300)
[2022-02-14 15:23] LABS: Opiate Screen,Urine Positive ng/ml (<300); Phencyclidine Screen,Urine Negative ng/ml (<25)
== END ==
PROVIDERS: PCP Emergency Medicine; Visit Provider Emergency Medicine
DX: F41.9 Anxiety disorder, unspecified (principal); M54.16 Radiculopathy, lumbar region
CPT/HCPCS: 80305

== ENCOUNTER → 2022-04-13 09:00 | Outpatient (CLI) | payer BC, SELFPAY ==
[2022-04-13 18:17] LABS: Amphetamine/Metha Screen,Urine Negative ng/ml (<1000); Barbiturates Screen,Urine Negative ng/ml (<200)
[2022-04-13 18:18] LABS: Benzodiazepines Screen,Urine Negative ng/ml (<200)
[2022-04-13 18:19] LABS: Cannabinoid Screen,Urine Negative ng/ml (<50); Cocaine Screen,Urine Negative ng/ml (<300)
[2022-04-13 18:20] LABS: Methadone Screen,Urine Negative ng/ml (<300)
[2022-04-13 18:21] LABS: Opiate Screen,Urine Positive ng/ml (<300); Phencyclidine Screen,Urine Negative ng/ml (<25)
== END ==
PROVIDERS: PCP Emergency Medicine; Visit Provider Emergency Medicine
DX: F41.9 Anxiety disorder, unspecified (principal)
CPT/HCPCS: 80305

== ENCOUNTER → 2022-09-20 09:21 | Outpatient (CLI) | payer BC, SELFPAY ==
[2022-09-20 10:29] LABS: Chloride 103 mmol/L (98-107); Potassium 4.7 mmoL/L (3.5-5.1); Sodium 135 mmol/L (136-145)
[2022-09-20 10:32] LABS: Alanine Aminotransferase 16 U/L (12-78); Albumin Level 4.5 g/dl (3.5-5.0); Alkaline Phosphatase 69 U/L (38-126); Anion Gap 10.7 mEq/L (5-15); Aspartate Amino Transferase 23 U/L (14-36); Bilirubin,Direct 0.3 mg/dl (0.0-0.4); Bilirubin,Indirect 0.2 mg/dL (0.0-0.9); Bilirubin,Total 0.5 mg/dl (0.2-1.3); Bilirubin,Unconjugated 0.2 mg/dL (0.0-1.1); Blood Urea Nitrogen 9 mg/dl (7-17); Calcium 9.4 mg/dl (8.4-10.2); Carbon Dioxide 26 mmol/L (22.0-30.0); Cholesterol 260 mg/dl (140-200); Estimated Glomerular Filt Rate 104 ml/min (>60); GFR (African American) 126 ML/MIN (>60); Glucose 87 mg/dl (74-100); Total Protein,Serum 6.9 g/dl (6.3-8.2); Triglycerides 342 mg/dl (30-150); VLDL Cholesterol 68 mg/dL (0-40)
[2022-09-20 10:33] LABS: Chol/HDL Ratio 5.4 (1-3.5); HDL Cholesterol 48 mg/dl (40-60)
[2022-09-20 10:44] LABS: Direct LDL Cholesterol 155.61 mg/dL (100-129)
[2022-09-20 10:49] LABS: Free T4 (Free Thyroxine) 0.97 ng/dl (0.78-2.19)
[2022-09-20 11:04] LABS: Thyroid Stimulating Hormone 2.09 uIU/mL (0.465-4.68)
[2022-09-20 19:30] LABS: Basophils # 0.1 K/mm3 (0-0.2); Basophils % 0.9 % (0.1-2.0); Eosinophils # 0.3 K/mm3 (0.0-0.4); Eosinophils % 2.9 % (0.1-12.0); Hematocrit 42.7 % (37.0-47.0); Lymphocytes # 3.8 K/mm3 (0.7-4.5); Mean Corpuscular HGB Conc 32.8 g/dL (31.8-35.4); Mean Corpuscular Hemoglobin 32.3 pg (27.0-31.2); Mean Corpuscular Volume 98.4 fl (81-99); Mean Platelet Volume 9.8 fl (7.4-10.4); Monocytes # 0.4 K/mm3 (0.1-1.0); Monocytes % 3.6 % (1.7-9.3); Neutrophils # 6.1 K/mm3 (1.8-7.8); Neutrophils % 56.7 % (37.0-80.0); Platelet Count 448 K/mm3 (142-424); Red Blood Count 4.33 M/mm3 (4.20-5.40); Red Cell Distribution Width 13.4 % (11.5-17.5); White Blood Count 10.7 K/mm3 (4.8-10.8)
== END ==
PROVIDERS: PCP Emergency Medicine; Visit Provider Nurse Practitioner
DX: R06.00 Dyspnea, unspecified (principal); J40 Bronchitis, not specified as acute or chronic; J44.9 Chronic obstructive pulmonary disease, unspecified; I34.0 Nonrheumatic mitral (valve) insufficiency; I11.9 Hypertensive heart disease without heart failure; I63.9 Cerebral infarction, unspecified; E11.9 Type 2 diabetes mellitus without complications; Z72.0 Tobacco use
CPT/HCPCS: 36415; 80048; 80061; 80076; 84439; 84443; 85025

== ENCOUNTER → 2022-09-25 13:16 | Outpatient (CLI) | payer BC, SELFPAY | PROVIDERS: PCP Emergency Medicine; Visit Provider Nurse Practitioner Family | DX: G47.33 Obstructive sleep apnea (adult) (pediatric) (principal); G47.9 Sleep disorder, unspecified; R41.3 Other amnesia; R06.83 Snoring; F11.90 Opioid use, unspecified, uncomplicated; G43.719 Chronic migraine without aura, intractable, without status migrainosus | CPT/HCPCS: G0399 ==

== ENCOUNTER → 2022-09-26 11:14 | Outpatient (CLI) | payer BC, SELFPAY ==
--- NOTE | 2022-09-26 11:20 | XR_ITS ---
FINAL REPORT TECHNIQUE: Chest PA & Lateral CLINICAL HISTORY: chest pain COMPARISON: 05/17/2020 FINDINGS: 2 views of the chest were performed. The heart size is normal. The mediastinum is within normal limits. There is no acute cardiopulmonary process. There are chronic changes in both lungs. There are no pleural effusions. There is no pneumothorax. There are compression deformities of mid thoracic vertebrae with postoperative changes from kyphoplasty. IMPRESSION: No acute cardiopulmonary process. Reviewed, Interpreted and Dictated by Jimi Maciel MD Transcribed by Veronica Kebede Authenticated and . [facility]
== END ==
PROVIDERS: PCP Emergency Medicine; Visit Provider Physician Assistant
DX: R06.00 Dyspnea, unspecified (principal); R07.89 Other chest pain; I10 Essential (primary) hypertension; J44.9 Chronic obstructive pulmonary disease, unspecified; E78.5 Hyperlipidemia, unspecified
CPT/HCPCS: 71046

== ENCOUNTER → 2022-10-08 10:38 | Outpatient (CLI) | payer BC, SELFPAY ==
[2022-10-08 14:57] LABS: Amphetamine/Metha Screen,Urine Negative ng/ml (<1000)
[2022-10-08 14:58] LABS: Barbiturates Screen,Urine Negative ng/ml (<200)
[2022-10-08 14:59] LABS: Benzodiazepines Screen,Urine Negative ng/ml (<200); Cannabinoid Screen,Urine Negative ng/ml (<50)
[2022-10-08 15:00] LABS: Cocaine Screen,Urine Negative ng/ml (<300); Methadone Screen,Urine Negative ng/ml (<300)
[2022-10-08 15:01] LABS: Opiate Screen,Urine Positive ng/ml (<300)
[2022-10-08 15:02] LABS: Phencyclidine Screen,Urine Negative ng/ml (<25)
== END ==
PROVIDERS: PCP Emergency Medicine; Visit Provider Emergency Medicine
DX: G89.29 Other chronic pain (principal)
CPT/HCPCS: 80305

== ENCOUNTER → 2022-10-16 07:07 | Outpatient (CLI) | payer BC, SELFPAY | PROVIDERS: PCP Emergency Medicine; Visit Provider Physician Assistant | DX: R06.00 Dyspnea, unspecified (principal); R07.89 Other chest pain; I10 Essential (primary) hypertension; E78.5 Hyperlipidemia, unspecified; J44.9 Chronic obstructive pulmonary disease, unspecified | CPT/HCPCS: 78452; 93017; 93306; A9502; J0280; J2785 ==

== ENCOUNTER → 2022-11-01 13:45 | Outpatient (CLI) | payer BC, SELFPAY ==
--- NOTE | 2022-11-01 13:45 | CT_ITS ---
FINAL REPORT TECHNIQUE: Axial images were obtained from the lung apex to the mid abdomen by computed tomography. Coronal reformatted images were obtained. This study was performed with techniques to keep radiation doses as low as reasonably achievable, (ALARA). Individualized dose reduction techniques using automated exposure control or adjustment of mA and/or kV according to the patient''s size were employed. CLINICAL HISTORY: Shortness of breath COMPARISON: None FINDINGS: There is no axillary mass or adenopathy. There is no hilar or mediastinal mass or adenopathy. Heart size is normal. There is no pericardial or pleural effusion. No suspicious infiltrate or nodule is identified. Mild emphysema and mild scarring. There is calcified granuloma right lung base. Limited images of the upper abdomen demonstrate postoperative changes from cholecystectomy. IMPRESSION: No acute process. Reviewed, Interpreted and Dictated by Chay Sepulveda III, MD Transcribed by Telma Blevins Authenticated and [facility]
== END ==
PROVIDERS: PCP Emergency Medicine; Visit Provider Physician Assistant
DX: R06.00 Dyspnea, unspecified (principal); R07.89 Other chest pain; I10 Essential (primary) hypertension; J44.9 Chronic obstructive pulmonary disease, unspecified; E78.5 Hyperlipidemia, unspecified
CPT/HCPCS: 71250

== ENCOUNTER → 2022-11-06 13:08 | Outpatient (CLI) | payer BC, SELFPAY ==
--- NOTE | 2022-11-06 14:31 | XR_ITS ---
FINAL REPORT TECHNIQUE: Chest PA & Lateral CLINICAL HISTORY: Significant hypoxemia, COPD COMPARISON: September 27, 2022 FINDINGS: 2 views of the chest were performed. The heart size is normal. The mediastinum is within normal limits. There is no acute cardiopulmonary process. There are no pleural effusions. There is no pneumothorax. There is accentuation of the thoracic kyphosis. There are changes of kyphoplasty in midthoracic vertebrae. IMPRESSION: No acute cardiopulmonary process. Reviewed, Interpreted and Dictated by Jimi Maciel MD Transcribed by Issa Christianson Authenticated and [facility]
== END ==
PROVIDERS: PCP Emergency Medicine; Visit Provider Nurse Practitioner Family
DX: R06.02 Shortness of breath (principal); G47.33 Obstructive sleep apnea (adult) (pediatric); G47.34 Idiopathic sleep related nonobstructive alveolar hypoventilation; Z72.0 Tobacco use
CPT/HCPCS: 71046; 94060; 94618; 94726; 94729

== ENCOUNTER → 2022-11-08 13:31 | Outpatient (POV) | payer BC, SELFPAY ==
--- NOTE | 2022-11-08 13:38 | EXP.PAIN.OV ---
HPI Data of Consult Patient: new to practice Consult date: 11/08/22 Requesting Physician: Krsytal Keys APRN Primary Care Provider: Thee Isaac MD Consult Narrative Reason for consult: Neck pain, mid/low back pain, right leg pain History of present illness: Ms. Kebede is a 57 year old female presents today as a new patient. She is a referral from Dr. Isaac's office. Today she rates her pain a 10 out of 10. Patient states she has pain at multiple locations including mid to low back with radiating symptoms down her right leg as well as neck pain. She describes the pain as sharp, burning, tingling sensations that are worse with increased activity. Patient states this has been going on for years and progressively worsened over time. She states that she does feel like something is wrong. Patient does have a family history of fibromyalgia, lupus and one of her sisters has MS. Patient does state that she has had an episode of incontinence in the past. She does state that it may just be all arthritis however she does have concerned due to her family history. She states that she has had a recent episode of chest pain and shortness of breath that she did have a full cardiac work-up with no abnormal findings. She also states she had a recent sleep study done that did show she had sleep apnea. 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 Hurtado's office on the . Patient states she did have a pulmonary test on Saturday however she has not gotten the findings at this time. Patient states she was previously a patient at our office and did have injections in the past however they did not provide significant relief. Patient is not interested in any additional injective therapy. She states that she did talk to Dr. Isaac about ordering MRI imaging of her lumbar spine due to her worsening pain symptoms however it was denied by insurance due to lack of having physical therapy. She states that his office did state they ordered it however its been approximately 3 weeks and she has not heard anything new. Patient has been to a chiropractor in the past however she states he would not do anything additionally due to her significant osteoporosis. Patient does have a history of thoracic surgery on her T6-T8. Patient is currently managed with gabapentin 300 mg 3 times a day and [place] 7.5 mg 4 times a day along with lorazepam 1 mg 3 times a day. Patient denies any side effects from these medications however she states that she does not feel like these are providing significant relief. Patient has tried [id number] Tylenol and ibuprofen along with heating pads and topicals like Salonpas and Biofreeze with no additional relief. Patient does states she has a significant history of anxiety and depression. Her Bryant is [phone]. Its been reviewed and appropriate CC: Krystal Keys APRN [facility] Disclaimer: The information contained in this section may have been updated after the patient was seen, as this information can be updated by other users. Medical History (Updated 11/08/22 @ 14:26 by Krystal Keys APRN) COPD with exacerbation Depression Hypertension Hypothyroidism Irritable bowel disease Surgical History (Updated 10/31/22 @ 14:10 by KAISER Youssef) History of back surgery History of cholecystectomy Family History Other Cancer Coronary artery disease Diabetes FHx: mental illness Heart attack Stroke Social History Smoking Status: Current some day smoker tobacco type: cigarettes packs per day: 1 second hand exposure: No alcohol intake: current substance use type: denies use current occupational status: unemployed Travel in the last 8 weeks: None household members: other housing: house number of children: 2 current occupational ex
[2022-11-08 15:04] VITALS: BP 97/68; PULSE 85; RESP 18; O2SAT 97; BMI 25.7
== END | disposition home or self-care (01) ==
PROVIDERS: PCP Emergency Medicine; Visit Provider Nurse Practitioner Family
DX: M51.16 Intervertebral disc disorders with radiculopathy, lumbar region (principal); M51.34 Other intervertebral disc degeneration, thoracic region; M79.604 Pain in right leg; Z98.890 Other specified postprocedural states
CPT/HCPCS: 99202; G0463

== ENCOUNTER 2022-11-15 13:59 | Outpatient (RCR) | payer BC, SELFPAY ==
--- NOTE | 2022-11-15 15:30 | HMH.PTOPEV ---
PT Outpatient Evaluation Rehab PT Outpatient Evaluation Start: 11/15/22 14:01 Freq: Status: Active Protocol: Document 11/15/22 14:06 GIANCARLOSEROULaura (Rec: 11/15/22 15:30 PDESEROUX [id number]) E-signed By Antoine Perry, PT Outpatient Therapy Subjective History Subjective History Pt. is a 57 year old female whom presents to [facility] Outpatient Physical Therapy Services in [place] for the initial evaluation this date( 11/15/22) w/ c/o chronic and constant cervical(L>R)/ thoracic/lumbar and RLE P!, numbness, and stiffness of insidious onset that has progressively worsened over the last 6 months. Pt. reports having a chronic history of cervical P!, crackling, popping, and stiffness. Pt. reports having previous Physical Therapy on the cervical spine treating migraines, reports having some symptom relief. However, pt. reports taking injections to treat her migraines. Pt. also c/o having chronic LBP! for 1 year, but reports having an increase in radiating P! in to the RLE 6 months ago. Pt. reports having difficulties getting out of bed secondary to RLE P!. Pt. reports having an accident(urinating) in her bed secondary to being unable to get out of bed d/t RLE P!. Pt. c/o intermittent numbness/ tingling into the RLE foot and digit. Pt. reports she is being referred to a Hematology Oncology Consultant to assess for Multiple Sclerosis, Lupus, and Fibromyalgia. Pt. also reports being referred to a Neurologist on 12/05/22. Pt. RTMD(referring Physician) first week of December. Pt. denies having any recent diagnostic imaging of the
== END 2022-12-24 08:50 | disposition home or self-care (01) ==
LOC: PT 13:59
PROVIDERS: PCP Emergency Medicine; Visit Provider Nurse Practitioner Family
DX: M54.50 Low back pain, unspecified (principal); M54.2 Cervicalgia
CPT/HCPCS: 97163

== ENCOUNTER → 2022-12-10 10:58 | Outpatient (POV) | payer BC, SELFPAY ==
--- NOTE | 2022-12-10 11:59 | EXP.PAIN.SOA ---
[facility] Pain Management SOAP Note Subjective:: Patient is a pleasant 57-year-old female who presents today for medication refill and follow-up. We are currently treating the patient for degenerative disc disease of thoracic and lumbar spine with thoracic and lumbar radiculopathy symptoms, neck pain, low back pain, mid back pain. Today she rates her pain a 10 out of 10. Patient denies any new trauma or injury. Patient denies any change in location or type of pain she experiences. She does state that the caleb Trujillo that we did prescribe at her last visit did help provide additional relief. She is requesting a refill at today's visit. She also states that the compounding cream helps additionally. Patient states that she is still trying to adjust and get used to her CPAP machine. At her last visit we sent a referral for rheumatology however she states she has never heard from this office. Patient does state that she did start physical therapy and went to 1 visit however she came down with a stomach bug and has not restarted at this time. Patient is currently managed with gabapentin 300 mg 3 times a day and [place] 7.5 mg 4 times a day from Dr. Isaac's office. Patient denies any side effects from these medications. Her Bryant is [id number]. Its been reviewed and appropriate. Review of Systems: General: No recent weight changes, no fever, no sleep disturbances Respiratory: No cough, no shortness of air, no recurring pulmonary infections Cardiovascular/peripheral vascular: No chest pain, no palpitations, no edema, no shortness of breath Gastrointestinal: No new onset incontinence, normal bowel movements reported Genitourinary: No new onset incontinence Musculoskeletal: Low back pain Psychiatric: [Normal mood/affect] Neurological: [Denies weakness in extremities], [denies balance issues] Objective:: Physical Exam: General: Alert and oriented x3, no acute distress, pleasant and cooperative Lungs: Respirations even and unlabored, symmetrical chest expansion Eyes: PERRL Musculoskeletal: Flexion and extension of lumbar [spine] somewhat guarded secondary to pain, [antalgic gait noted] Neurological: Speech clear, no gross sensory deficit Assessment:: Degenerative disc disease of the thoracic and lumbar spine with thoracic and lumbar radiculopathy symptoms, neck pain, low back pain, mid back pain Plan:: I will send in a refill of the patient's tizanidine and change it to 4 mg 3 times daily and provide a 2-month supply of this medication. I have counseled the patient to start back her physical therapy for additional improvement. We will follow-up on the referral we sent for rheumatology back in November and contact the patient once we have an update. She will return to clinic in 2 months for reevaluation of symptoms and medication refill. Patient has been instructed to contact the clinic with any concerns before the next appointment. Dr. Novak has reviewed this note and agrees with this plan of care. This note was dictated using voice recognition software and make contain errors or omissions. [facility] Disclaimer: The information contained in this section may have been updated after the patient was seen, as this information can be updated by other users. Medical History COPD with exacerbation Depression Hypertension Hypothyroidism Irritable bowel disease Surgical History History of back surgery History of cholecystectomy Family History Other Cancer Coronary artery disease Diabetes FHx: mental illness Heart attack Stroke Social History Smoking Status: Current some day smoker tobacco type: cigarettes packs per day: 1 second hand exposure: No alcohol intake: current substance use type: denies use current occupational status:
[2022-12-10 12:54] VITALS: BP 108/62; PULSE 83; RESP 18; O2SAT 97; BMI 25.9
== END | disposition home or self-care (01) ==
PROVIDERS: PCP Emergency Medicine; Visit Provider Nurse Practitioner Family
DX: M51.16 Intervertebral disc disorders with radiculopathy, lumbar region (principal); M51.14 Intervertebral disc disorders with radiculopathy, thoracic region
CPT/HCPCS: 99212; G0463

== ENCOUNTER → 2022-12-11 23:13 | Outpatient (CLI) | payer BC, SELFPAY ==
[2022-12-11 21:42] LABS: Amphetamine/Metha Screen,Urine Negative ng/ml (<1000)
[2022-12-11 21:43] LABS: Barbiturates Screen,Urine Negative ng/ml (<200)
[2022-12-11 21:44] LABS: Benzodiazepines Screen,Urine Negative ng/ml (<200); Cannabinoid Screen,Urine Negative ng/ml (<50)
[2022-12-11 21:45] LABS: Cocaine Screen,Urine Negative ng/ml (<300); Methadone Screen,Urine Negative ng/ml (<300)
[2022-12-11 21:50] LABS: Opiate Screen,Urine Positive ng/ml (<300)
[2022-12-11 21:51] LABS: Phencyclidine Screen,Urine Negative ng/ml (<25)
== END ==
PROVIDERS: PCP Emergency Medicine; Visit Provider Emergency Medicine
DX: Z79.899 Other long term (current) drug therapy (principal)
CPT/HCPCS: 80305

== ENCOUNTER → 2023-02-11 19:18 | Outpatient (CLI) | payer BC, SELFPAY ==
[2023-02-11 20:37] LABS: Amphetamine/Metha Screen,Urine Negative ng/ml (<1000); Barbiturates Screen,Urine Negative ng/ml (<200); Benzodiazepines Screen,Urine Negative ng/ml (<200); Cannabinoid Screen,Urine Negative ng/ml (<50); Cocaine Screen,Urine Negative ng/ml (<300); Methadone Screen,Urine Negative ng/ml (<300); Opiate Screen,Urine Positive ng/ml (<300); Phencyclidine Screen,Urine Negative ng/ml (<25)
== END ==
PROVIDERS: PCP Nurse Practitioner Psychiatric/Mental Health; Visit Provider Nurse Practitioner Psychiatric/Mental Health
DX: Z02.83 Encounter for blood-alcohol and blood-drug test (principal)
CPT/HCPCS: 80305

== ENCOUNTER → 2023-02-21 11:02 | Outpatient (POV) | payer BC, SELFPAY ==
[2023-02-21 11:36] VITALS: BP 101/55; PULSE 82; RESP 18; O2SAT 95; BMI 56.0
--- NOTE | 2023-02-21 11:51 | EXP.PAIN.SOA ---
[facility] Pain Management SOAP Note Subjective:: Patient is a pleasant 57-year-old female who presents today for medication refill and follow-up. We are currently treating the patient for degenerative disc disease of thoracic and lumbar spine with thoracic and lumbar radiculopathy symptoms, neck pain, low back pain, mid back pain. Today she rates her pain a 10 out of 10. Patient denies any new trauma or injury. Patient continues to state that she has pain throughout her spine and describes it as an aching, throbbing sensation. From our last visit we did send her for rheumatology referral however she states she has not heard anything from this office. We also changed her tizanidine to 4 mg 3 times a day. She does state that this has helped with her symptoms along with the compounding cream. Patient is also managed with gabapentin 300 mg 3 times a day and [place] 7.5 mg 4 times a day from Dr. Isaac's office. Patient states that she has still been having trouble with her CPAP machine however recently she found out that she was still having episodes of PTSD while she slept and was actually taking the device off in the middle of the night. Patient states that she has had her doctor adjust her Seroquel and that the last couple days have been much better. Her Bryant is [id number]. Its been reviewed and appropriate. Review of Systems: General: No recent weight changes, no fever, no sleep disturbances Respiratory: No cough, no shortness of air, no recurring pulmonary infections Cardiovascular/peripheral vascular: No chest pain, no palpitations, no edema, no shortness of breath Gastrointestinal: No new onset incontinence, normal bowel movements reported Genitourinary: No new onset incontinence Musculoskeletal: Low back pain, mid back pain Psychiatric: [Normal mood/affect] Neurological: [Denies weakness in extremities], [denies balance issues] Objective:: Physical Exam: General: Alert and oriented x3, no acute distress, pleasant and cooperative Lungs: Respirations even and unlabored, symmetrical chest expansion Eyes: PERRL Musculoskeletal: Flexion and extension of lumbar [spine] somewhat guarded secondary to pain, [antalgic gait noted] Neurological: Speech clear, no gross sensory deficit Assessment:: Degenerative disc disease of thoracic and lumbar spine with thoracic and lumbar radiculopathy symptoms, low back pain, mid back pain Plan:: I will refill the patient's tizanidine 4 mg 3 times daily and provide a 2-month supply of this medication. I will also send in new refills of her compounding cream. I have counseled the patient we will look back into the rheumatology referral and resend it. Patient will return to clinic in 2 months for reevaluation of symptoms and plan of care. Patient has been instructed to contact the clinic with any concerns before the next appointment. Dr. Novak has reviewed this note and agrees with this plan of care. This note was dictated using voice recognition software and make contain errors or omissions. [facility] Disclaimer: The information contained in this section may have been updated after the patient was seen, as this information can be updated by other users. Medical History Asthma Chronic recurrent sinusitis COPD (chronic obstructive pulmonary disease) COPD with exacerbation Depression Dyspnea on exertion Hypertension Hypothyroidism Irritable bowel disease Moderate persistent asthma Seasonal allergic rhinitis Seasonal allergies Smoking greater than 30 pack years Surgical History History of back surgery History of cholecystectomy Family History Other Cancer Coronary artery disease Diabetes FHx: mental illness Heart attack Stroke Social History Smoking Status: Current some day smoker tobacco type: cigarettes packs per day: 1 second hand exposur
== END | disposition home or self-care (01) ==
PROVIDERS: PCP Emergency Medicine; Visit Provider Nurse Practitioner Family
DX: M51.14 Intervertebral disc disorders with radiculopathy, thoracic region (principal); M51.16 Intervertebral disc disorders with radiculopathy, lumbar region; M54.2 Cervicalgia
CPT/HCPCS: 99212; G0463

== ENCOUNTER → 2023-04-12 21:18 | Outpatient (CLI) | payer BC, SELFPAY ==
[2023-04-12 16:14] LABS: Amphetamine/Metha Screen,Urine Negative ng/ml (<1000)
[2023-04-12 16:15] LABS: Barbiturates Screen,Urine Negative ng/ml (<200); Benzodiazepines Screen,Urine Negative ng/ml (<200)
[2023-04-12 16:16] LABS: Cannabinoid Screen,Urine Negative ng/ml (<50)
[2023-04-12 16:17] LABS: Cocaine Screen,Urine Negative ng/ml (<300); Methadone Screen,Urine Negative ng/ml (<300)
[2023-04-12 16:18] LABS: Opiate Screen,Urine Positive ng/ml (<300)
[2023-04-12 16:19] LABS: Phencyclidine Screen,Urine Negative ng/ml (<25)
== END ==
PROVIDERS: PCP Emergency Medicine; Visit Provider Emergency Medicine
DX: G89.29 Other chronic pain (principal)
CPT/HCPCS: 80305

== ENCOUNTER → 2023-05-17 09:23 | Outpatient (POV) | payer BC, SELFPAY ==
--- NOTE | 2023-05-17 09:52 | A.OFFVIS_ITS ---
[facility] Pain Management SOAP Note Subjective:: Patient is a very pleasant 57-year-old female comes our clinic today for medication refills. We have been treating her for quite some time for chronic thoracic back pain thoracic radiculopathy. Lumbar back pain. Lumbar radiculopathy. Patient is status post T6-7/T7-8 discectomy laminectomy with hardware. Patient has chronic scoliosis. Patient rates her pain today 12/15. We prescribed the patient tizanidine 4 mg 1 p.o. 3 times daily. Patient reports this helps with her pain. Patient also takes gabapentin 300 mg 1 p.o. 3 times daily as well as [place] 7.5 mg 1 p.o. 4 times daily. These come from her PCP. I discussed diclofenac with the patient. She does not have any heart history. We will give her a 1 month trial of diclofenac 75 mg 1 p.o. twice daily. Patient describes her thoracic pain as constant, dull, aching. Change in weather has increased her pain significantly. Patient also complains of low back pain as well as bilateral hip and leg radicular symptoms at times. Patient's Bryant [id number] is been reviewed and appropriate. Objective:: Patient is awake alert Stewart x3. In no acute distress. Flexion-extension cervical lumbar spine guarded secondary to pain. Deep tendon reflexes upper and lower extremities normal. Motor strength upper lower extremities normal. There is no gross sensory deficit. Gait is normal. Assessment:: Degenerative disc disease lumbar spine multilevels. Lumbar radiculopathy. Degenerative disc disease cervical spine cervical radiculopathy. Degenerative disc disease thoracic spine. Thoracic postlaminectomy syndrome. Plan:: I will refill the patient's tizanidine 4 mg 1 p.o. 3 times daily. Also, we will begin the patient on diclofenac for 1 month 75 mg 1 p.o. twice daily. If in fact patient feels better while taking diclofenac she will give us a call and we will give her a refill. I briefly discussed with the patient in reference to intrathecal pain pump therapy. Patient has some interest. She will continue to think about it. We will discuss at a later date. [facility] Disclaimer: The information contained in this section may have been updated after the patient was seen, as this information can be updated by other users. Medical History Asthma Chronic recurrent sinusitis COPD (chronic obstructive pulmonary disease) COPD with exacerbation Depression Dyspnea on exertion Hypertension Hypothyroidism Irritable bowel disease Moderate persistent asthma Seasonal allergic rhinitis Seasonal allergies Smoking greater than 30 pack years Surgical History History of back surgery History of cholecystectomy Family History Other Cancer Coronary artery disease Diabetes FHx: mental illness Heart attack Stroke Social History Smoking Status: Current some day smoker tobacco type: cigarettes packs per day: 1 second hand exposure: No alcohol intake: current substance use type: denies use current occupational status: other Travel in the last 8 weeks: None household members: other housing: house number of children: 2 current occupational exposures/hazards: No caffeine: Yes
[2023-05-17 10:22] VITALS: BP 127/88; PULSE 75; RESP 18; O2SAT 97; BMI 25.0
== END | disposition home or self-care (01) ==
PROVIDERS: PCP Emergency Medicine; Visit Provider Nurse Anesthetist, Certified Registered
DX: M51.16 Intervertebral disc disorders with radiculopathy, lumbar region (principal); M50.10 Cervical disc disorder with radiculopathy, unspecified cervical region; M51.34 Other intervertebral disc degeneration, thoracic region; M96.1 Postlaminectomy syndrome, not elsewhere classified
CPT/HCPCS: 99212; G0463

== ENCOUNTER → 2023-06-10 15:02 | Outpatient (CLI) | payer BC, SELFPAY ==
[2023-06-10 14:37] LABS: Basophils % 0.3 % (0.1-2.0); Eosinophils # 0.1 K/mm3 (0.0-0.4); Eosinophils % 1.1 % (0.1-12.0); Hematocrit 40.8 % (37.0-47.0); Hemoglobin 13.9 g/dL (12.2-16.2); Lymphocytes # 3.4 K/mm3 (0.7-4.5); Lymphocytes % 37.3 % (10-50); Mean Corpuscular HGB Conc 34.1 g/dL (31.8-35.4); Mean Corpuscular Hemoglobin 32.6 pg (27.0-31.2); Mean Corpuscular Volume 95.5 fl (81-99); Mean Platelet Volume 9.4 fl (7.4-10.4); Monocytes # 0.4 K/mm3 (0.1-1.0); Monocytes % 4.7 % (1.7-9.3); Neutrophils # 5.1 K/mm3 (1.8-7.8); Neutrophils % 56.6 % (37.0-80.0); Platelet Count 395 K/mm3 (142-424); Red Blood Count 4.27 M/mm3 (4.20-5.40); Red Cell Distribution Width 13.7 % (11.5-17.5); White Blood Count 9.1 K/mm3 (4.8-10.8)
[2023-06-10 14:57] LABS: Creatinine,Urine Random 39 mg/dL (Not Estab.)
[2023-06-10 14:58] LABS: Alanine Aminotransferase 23 U/L (12-78); Albumin Level 4.5 g/dl (3.5-5.0); Albumin/Globulin Ratio 1.6 (1.1-1.8); Alkaline Phosphatase 90 U/L (38-126); Anion Gap 12.6 mEq/L (5-15); Aspartate Amino Transferase 31 U/L (14-36); Bilirubin,Total 0.4 mg/dl (0.2-1.3); Blood Urea Nitrogen 10 mg/dl (7-17); Calcium 9.1 mg/dl (8.4-10.2); Carbon Dioxide 22 mmol/L (22.0-30.0); Chloride 106 mmol/L (98-107); Chol/HDL Ratio 6.2 (1-3.5); Cholesterol 253 mg/dl (140-200); Estimated Glomerular Filt Rate 104 ml/min (>60); GFR (African American) 126 ML/MIN (>60); Globulin 2.8 g/dL (1.3-3.2); Glucose 88 mg/dl (74-100); HDL Cholesterol 41 mg/dl (40-60); Potassium 4.6 mmoL/L (3.5-5.1); Sodium 136 mmol/L (136-145); Total Protein,Serum 7.3 g/dl (6.3-8.2); Triglycerides 358 mg/dl (30-150); VLDL Cholesterol 72 mg/dL (0-40)
[2023-06-10 15:00] LABS: Microalbumin/Creatinine Ratio 16.9
[2023-06-10 15:03] LABS: Barbiturates Screen,Urine Negative ng/ml (<200)
[2023-06-10 15:04] LABS: Benzodiazepines Screen,Urine Negative ng/ml (<200)
[2023-06-10 15:05] LABS: Cocaine Screen,Urine Negative ng/ml (<300)
[2023-06-10 15:06] LABS: Methadone Screen,Urine Negative ng/ml (<300); Opiate Screen,Urine Positive ng/ml (<300)
[2023-06-10 15:07] LABS: Phencyclidine Screen,Urine Negative ng/ml (<25)
[2023-06-10 15:09] LABS: Direct LDL Cholesterol 150.62 mg/dL (100-129)
[2023-06-10 15:15] LABS: 25-OH Vitamin D, Total 42.1 ng/mL (30-100)
[2023-06-10 15:19] LABS: Cannabinoid Screen,Urine Negative ng/ml (<50)
[2023-06-10 15:22] LABS: Amphetamine/Metha Screen,Urine Negative ng/ml (<1000)
== END ==
PROVIDERS: PCP Internal Medicine; Visit Provider Internal Medicine
DX: E03.9 Hypothyroidism, unspecified (principal); E78.5 Hyperlipidemia, unspecified; Z79.899 Other long term (current) drug therapy
CPT/HCPCS: 80053; 80061; 80305; 82043; 82306; 82570; 85025

== ENCOUNTER → 2023-06-19 14:55 | Outpatient (CLI) | payer BC, SELFPAY ==
[2023-06-19 14:32] LABS: Amphetamine/Metha Screen,Urine Negative ng/ml (<1000)
[2023-06-19 14:42] LABS: Barbiturates Screen,Urine Negative ng/ml (<200); Cannabinoid Screen,Urine Negative ng/ml (<50)
[2023-06-19 14:43] LABS: Benzodiazepines Screen,Urine Negative ng/ml (<200); Opiate Screen,Urine Positive ng/ml (<300)
[2023-06-19 14:44] LABS: Cocaine Screen,Urine Negative ng/ml (<300)
[2023-06-19 14:45] LABS: Methadone Screen,Urine Negative ng/ml (<300)
[2023-06-19 14:46] LABS: Phencyclidine Screen,Urine Negative ng/ml (<25)
== END ==
PROVIDERS: PCP Internal Medicine; Visit Provider Nurse Practitioner Psychiatric/Mental Health
DX: Z79.899 Other long term (current) drug therapy (principal)
CPT/HCPCS: 80305

== ENCOUNTER 2023-08-12 08:59 | Outpatient (CLI) | payer BC, SELFPAY ==
--- NOTE | 2023-08-12 09:03 | XR_ITS ---
FINAL REPORT CLINICAL HISTORY: osteoporosis screening COMPARISON: None FINDINGS: Using L1-4, the bone mineral density of the spine is 0.644 g/cm2, corresponding to T-score of -3.7 which is consistent with osteoporosis. Using the left hip, the bone mineral density of the femoral neck is 0.489 g/cm2, corresponding to a T-score of -3.2 which is consistent with osteoporosis. Using the right hip, the bone mineral density of the femoral neck is 0.450 g/cm2, corresponding to a T-score of -3.6 which is consistent with osteoporosis. FRAX not reported because some T-score at or below -2.5; treated for osteoporosis. NOTE: T-score: Standard deviation compared with peak bone mass of young adult mean. *Following the recommendations of the International Society of Bone densitometry, classification of hip BMD is based on the lower of two T-scores; total hip or femoral neck. IMPRESSION: Diminished bone mineral density consistent with osteoporosis. Reviewed, Interpreted and Dictated by Chay Sepulveda III, MD Transcribed by Telma Blevins Authenticated and [facility]
[2023-08-12 10:38] LABS: Chol/HDL Ratio 6.8 (1-3.5); Cholesterol 293 mg/dl (140-200); HDL Cholesterol 43 mg/dl (40-60)
[2023-08-12 10:46] LABS: Triglycerides 413 mg/dl (30-150)
[2023-08-12 10:50] LABS: Direct LDL Cholesterol 152.91 mg/dL (100-129)
[2023-08-12 11:13] LABS: Thyroid Stimulating Hormone 6.54 uIU/mL (0.465-4.68)
== END 2023-08-12 23:59 ==
PROVIDERS: PCP Internal Medicine; Visit Provider Internal Medicine
DX: M81.0 Age-related osteoporosis without current pathological fracture (principal); E03.9 Hypothyroidism, unspecified; E78.5 Hyperlipidemia, unspecified
CPT/HCPCS: 36415; 77080; 80061; 84443

== ENCOUNTER 2023-08-19 12:30 | Outpatient (CLI) | payer BC, SELFPAY ==
[2023-08-19 20:31] LABS: Thyroid Stimulating Hormone 2.45 uIU/mL (0.465-4.68)
== END 2023-08-19 23:59 ==
LOC: LAB.DROPOF 12:31
PROVIDERS: PCP Internal Medicine; Visit Provider Internal Medicine
DX: E03.8 Other specified hypothyroidism (principal)
CPT/HCPCS: 84443

== ENCOUNTER 2023-08-28 10:56 | Outpatient (CLI) | payer BC, SELFPAY ==
--- NOTE | 2023-08-28 11:00 | MM_ITS ---
PROCEDURE INFORMATION: Exam: MG Bilateral Screening 3D Mammography Exam date and time: 08/28/2023 11:02 AM Age: 58 years old Clinical indication: Screening. Her mother, maternal aunts and maternal aunt had breast cancer. TECHNIQUE: Imaging protocol: Bilateral Screening tomosynthesis and 2D mammography including computer-aided detection (CAD) when performed. COMPARISON: MG MM DIG SCREENING MAMM BI W/CAD 02/10/2020 8:53 AM FINDINGS: MAMMOGRAPHY: Breast composition: The breasts are heterogeneously dense, which may obscure small masses. Mass: None. Architectural distortion: None. Calcifications: No suspicious calcifications. Asymmetric density: None. Skin thickening: None. Axillary adenopathy: None. IMPRESSION: No mammographic evidence of malignancy. Annual screening is recommended unless otherwise clinically indicated. ASSESSMENT: BI-RADS Category 1: Negative
== END 2023-08-28 23:59 ==
LOC: RAD 10:57
PROVIDERS: PCP Internal Medicine; Visit Provider Internal Medicine
DX: Z12.31 Encounter for screening mammogram for malignant neoplasm of breast (principal)
CPT/HCPCS: 77063; 77067

== ENCOUNTER 2023-10-18 10:50 | Outpatient (CLI) | payer BC, SELFPAY ==
[2023-10-18 10:57] LABS: Adenovirus F 40/41, stool Not Detected (NotDetected); Astrovirus Not Detected (NotDetected); Campylobacter Not Detected (NotDetected); Clostridium Difficile A/B, PCR Not Detected (NotDetected); Cryptosporidium Not Detected (NotDetected); Cyclospora Cayetanesis Not Detected (NotDetected); Entamoeba histolytica Not Detected (NotDetected); Enteroaggregative E coli Not Detected (NotDetected); Enteropathogenic E coli Not Detected (NotDetected); Enterotoxigenic E coli Not Detected (NotDetected); Giardia lamblia Not Detected (NotDetected); Norovirus Not Detected (NotDetected); Plesimonas Shigalloides, PCR Not Detected (NotDetected); Rotavirus A Not Detected (NotDetected); Salmonella, PCR Not Detected (NotDetected); Sapovirus Not Detected (NotDetected); Shiga-like toxin E coli Not Detected (NotDetected); Shigella Enterovasive E coli Not Detected (NotDetected); Vibrio Cholerae Not Detected (NotDetected); Vibrio, PCR Not Detected (NotDetected); Yersinia Entercolitica, PCR Not Detected (NotDetected)
[2023-10-23 15:29] LABS: Calprotectin, Fecal 58 ug/g (0-120)
[2023-10-25 14:14] LABS: Pancreatic Elastase, Fecal 479 (>200)
== END 2023-10-18 23:59 | disposition home or self-care (01) ==
LOC: LAB.DROPOF 10:51
PROVIDERS: PCP Internal Medicine; Visit Provider Nurse Practitioner
DX: K52.9 Noninfective gastroenteritis and colitis, unspecified (principal); R10.10 Upper abdominal pain, unspecified
CPT/HCPCS: 82656; 83993; 87507

== ENCOUNTER 2023-12-11 11:35 | Outpatient (CLI) | payer BC, SELFPAY ==
[2023-12-11 11:58] LABS: Basophils # 0.1 K/mm3 (0-0.2); Basophils % 1.3 % (0.1-2.0); Eosinophils # 0.1 K/mm3 (0.0-0.4); Eosinophils % 1.4 % (0.1-12.0); Hematocrit 42.1 % (37.0-47.0); Hemoglobin 13.8 g/dL (12.2-16.2); Lymphocytes # 3.8 K/mm3 (0.7-4.5); Lymphocytes % 37.5 % (10-50); Mean Corpuscular HGB Conc 32.7 g/dL (31.8-35.4); Mean Corpuscular Hemoglobin 32.2 pg (27.0-31.2); Mean Corpuscular Volume 98.5 fl (81-99); Mean Platelet Volume 8.5 fl (7.4-10.4); Monocytes # 0.5 K/mm3 (0.1-1.0); Monocytes % 5.2 % (1.7-9.3); Neutrophils # 5.6 K/mm3 (1.8-7.8); Neutrophils % 54.5 % (37.0-80.0); Platelet Count 353 K/mm3 (142-424); Red Blood Count 4.27 M/mm3 (4.20-5.40); Red Cell Distribution Width 13.5 % (11.5-17.5); White Blood Count 10.2 K/mm3 (4.8-10.8)
[2023-12-11 12:40] LABS: Creatinine,Urine Random 35 mg/dL (Not Estab.)
[2023-12-11 12:44] LABS: Microalbumin < 6.000 mg/L (0-16.7)
[2023-12-11 14:25] LABS: Chloride 103 mmol/L (98-107)
[2023-12-11 14:26] LABS: Potassium 4.8 mmoL/L (3.5-5.1); Sodium 138 mmol/L (136-145)
[2023-12-11 14:27] LABS: Alanine Aminotransferase 12 U/L (12-78); Albumin Level 4.2 g/dl (3.5-5.0); Alkaline Phosphatase 80 U/L (38-126); Aspartate Amino Transferase 20 U/L (14-36); Bilirubin,Direct 0.1 mg/dl (0.0-0.4); Chol/HDL Ratio 1.9 (1-3.5); Cholesterol 150 mg/dl (140-200); HDL Cholesterol 77 mg/dl (40-60); Total Protein,Serum 6.7 g/dl (6.3-8.2); Triglycerides 248 mg/dl (30-150); VLDL Cholesterol 50 mg/dL (0-40)
[2023-12-11 14:28] LABS: Alanine Aminotransferase 13 U/L (12-78); Alkaline Phosphatase 81 U/L (38-126); Aspartate Amino Transferase 21 U/L (14-36); Bilirubin,Total 0.1 mg/dl (0.2-1.3); Bilirubin,Total 0.2 mg/dl (0.2-1.3); Blood Urea Nitrogen 9 mg/dl (7-17); Estimated Glomerular Filt Rate 103 ml/min (>60); GFR (African American) 125 ML/MIN (>60)
[2023-12-11 14:29] LABS: Albumin Level 4.4 g/dl (3.5-5.0); Albumin/Globulin Ratio 1.9 (1.1-1.8); Anion Gap 11.8 mEq/L (5-15); Calcium 9.4 mg/dl (8.4-10.2); Carbon Dioxide 28 mmol/L (22.0-30.0); Globulin 2.3 g/dL (1.3-3.2); Glucose 83 mg/dl (74-100); Total Protein,Serum 6.7 g/dl (6.3-8.2)
[2023-12-11 14:39] LABS: Direct LDL Cholesterol 58.75 mg/dL (100-129)
[2023-12-11 15:01] LABS: 25-OH Vitamin D, Total 35.5 ng/mL (30-100)
== END 2023-12-11 23:59 | disposition home or self-care (01) ==
LOC: LAB 11:36
PROVIDERS: PCP Internal Medicine; Visit Provider Physician Assistant
DX: I10 Essential (primary) hypertension (principal); F17.210 Nicotine dependence, cigarettes, uncomplicated; E78.5 Hyperlipidemia, unspecified; E03.9 Hypothyroidism, unspecified; Z68.25 Body mass index [BMI] 25.0-25.9, adult
CPT/HCPCS: 36415; 80053; 80061; 80076; 82043; 82306; 82570; 85025

== ENCOUNTER 2024-06-02 11:40 | Outpatient (CLI) | payer BC, SELFPAY ==
[2024-06-02 12:10] LABS: Basophils # 0.1 K/mm3 (0-0.2); Basophils % 1.2 % (0.1-2.0); Eosinophils # 0.1 K/mm3 (0.0-0.4); Hematocrit 39.6 % (37.0-47.0); Hemoglobin 13.9 g/dL (12.2-16.2); Lymphocytes # 3.6 K/mm3 (0.7-4.5); Lymphocytes % 36.8 % (10-50); Mean Corpuscular Hemoglobin 33.2 pg (27.0-31.2); Mean Corpuscular Volume 94.9 fl (81-99); Mean Platelet Volume 7.6 fl (7.4-10.4); Monocytes # 0.5 K/mm3 (0.1-1.0); Monocytes % 5.1 % (1.7-9.3); Neutrophils # 5.5 K/mm3 (1.8-7.8); Neutrophils % 55.9 % (37.0-80.0); Platelet Count 384 K/mm3 (142-424); Red Blood Count 4.18 M/mm3 (4.20-5.40); Red Cell Distribution Width 13.5 % (11.5-17.5); White Blood Count 9.9 K/mm3 (4.8-10.8)
[2024-06-02 12:48] LABS: Free T4 (Free Thyroxine) 1.12 ng/dl (0.78-2.19)
[2024-06-02 13:57] LABS: Alanine Aminotransferase 25 U/L (12-78); Albumin Level 4.4 g/dl (3.5-5.0); Alkaline Phosphatase 91 U/L (38-126); Anion Gap 13.2 mEq/L (5-15); Aspartate Amino Transferase 27 U/L (14-36); Bilirubin,Direct 0.5 mg/dl (0.0-0.4); Bilirubin,Total 0.5 mg/dl (0.2-1.3); Bilirubin,Unconjugated 0.1 mg/dL (0.0-1.1); Blood Urea Nitrogen 6 mg/dl (7-17); Calcium 9.3 mg/dl (8.4-10.2); Carbon Dioxide 20 mmol/L (22.0-30.0); Chloride 104 mmol/L (98-107); Chol/HDL Ratio 1.6 (1-3.5); Cholesterol 117 mg/dl (140-200); Estimated Glomerular Filt Rate 103 ml/min (>60); GFR (African American) 125 ML/MIN (>60); Glucose 83 mg/dl (74-100); HDL Cholesterol 71 mg/dl (40-60); Magnesium 1.7 mg/dl (1.6-2.3); Potassium 4.2 mmoL/L (3.5-5.1); Sodium 133 mmol/L (136-145); Total Protein,Serum 6.4 g/dl (6.3-8.2); Triglycerides 188 mg/dl (30-150); VLDL Cholesterol 38 mg/dL (0-40)
[2024-06-02 14:08] LABS: Direct LDL Cholesterol 36.84 mg/dL (100-129)
[2024-06-02 14:24] LABS: Thyroid Stimulating Hormone 2.55 uIU/mL (0.465-4.68)
== END 2024-06-02 23:59 | disposition home or self-care (01) ==
LOC: LAB 11:41
PROVIDERS: PCP Internal Medicine; Visit Provider Physician Assistant
DX: E03.9 Hypothyroidism, unspecified (principal); I25.10 Atherosclerotic heart disease of native coronary artery without angina pectoris; J43.9 Emphysema, unspecified; G47.33 Obstructive sleep apnea (adult) (pediatric); E78.5 Hyperlipidemia, unspecified; I10 Essential (primary) hypertension; Z72.0 Tobacco use
CPT/HCPCS: 36415; 80048; 80061; 80076; 83735; 84439; 84443; 85025

== ENCOUNTER 2024-07-23 13:55 | Outpatient (CLI) | payer OTHER, SELFPAY ==
--- NOTE | 2024-07-23 13:58 | XR_ITS ---
FINAL REPORT CLINICAL HISTORY: pt with osteoprosis and Hx of fx, FALL ON 06/28/24 COMPARISON: None FINDINGS: LEFT HIP: Three-view of the left hip including an AP view of the pelvis demonstrate no acute fracture or dislocation. The joint spaces appear normal. The visualized bony structures are well aligned. No soft tissue abnormality is seen. IMPRESSION: No acute bony abnormality. Reviewed, Interpreted and Dictated by Alvaro Rudd MD Transcribed by Telma Blevins Authenticated and [facility]
== END 2024-07-23 23:59 | disposition home or self-care (01) ==
LOC: RAD 13:56
PROVIDERS: PCP Internal Medicine; Visit Provider Internal Medicine
DX: M25.552 Pain in left hip (principal)
CPT/HCPCS: 73502

== ENCOUNTER 2024-08-05 06:04 | Day surgery (SDC) | payer OTHER, SELFPAY ==
[2024-07-31 12:42] VITALS: BMI 23.6
[2024-08-05] MEDS: LACTATED RINGERS 1000ML 1,000 ML 50 ML IV (06:22)
[2024-08-05 06:32] VITALS: BP 143/97; PULSE 85; RESP 18; TEMP 36.1; O2SAT 96
--- NOTE | 2024-08-05 07:13 | P.PNANES_ITS ---
[facility] Disclaimer: The information contained in this section may have been updated after the patient was seen, as this information can be updated by other users. Medical History Retraction of tympanic membrane of left ear Hearing difficulty Ear congestion Gastroenteritis and colitis, viral Gastroenteritis Asthma Moderate persistent asthma COPD (chronic obstructive pulmonary disease) Dyspnea on exertion Seasonal allergies Smoking greater than 30 pack years Chronic recurrent sinusitis Seasonal allergic rhinitis COPD with exacerbation Irritable bowel disease Hypertension Hypothyroidism Depression Surgical History History of cholecystectomy History of back surgery Family History Mother Cancer breast and cervical Grandfather Cancer Colon and prostate Father Cancer Metastatic Disease Other Coronary artery disease Diabetes FHx: mental illness Heart attack Stroke Social History Smoking Status: Current every day smoker tobacco type: cigarettes packs per day: 1 second hand exposure: No alcohol intake: never substance use type: denies use current occupational status: other Travel in the last 8 weeks: None household members: other housing: house number of children: 2 current occupational exposures/hazards: No caffeine: Yes do you feel safe at home: Yes victim of physical abuse: No victim of emotional abuse: No victim of sexual abuse: No would you like helpful sources: No Have you lived/traveled outside [place] in past 30 days?: No Contact w/someone who lives/traveled outside US past 30 days?: No Exposure to someone with infectious disease in past 14 days?: No Do you have a fever (greater than 100.4 F or 38 C)?: No Have you tested positive for COVID-19: No Exposed to someone with COVID-19 in past 14 days?: No Do you have a sore throat?: No Do you have a cough?: No Do you have any weakness?: No Do you have any diarrhea?: No Are you experiencing any unusual bleeding?: No Do you have any muscle aches/pain?: No Do you have any abdominal pain?: No Are you experiencing loss of taste or smell?: No [facility] Anesthesia Checklist Patient Identification Patient Identification: Arm Band Structural Data Admitted From: Home Planned Operative Procedure/s: EGD/Colonoscopy Consent for Planned Operative Procedure(s) Verified: Yes Verified Documents: Surgical Consent and History and Physical NPO Status Verified Time NPO: 00:00 Additional verifications Anesthesia Reactions: No Hx Blood Transfusions: No Blood Transfusion Reaction: Yes Airway Assessment Mallampati Score:: Class II C-Spine Mobility Assessed: Yes TMJ Mobility Assessed: Yes Dentition: Good Dentition Neurological Assessment Level of Consciousness: Awake, Alert and Appropriate Anesthesia Plan Anesthesia Risk discussed: Yes Anesthesia Plan: Verified ASA Class: III Anesthesia Type: MAC
--- NOTE | 2024-08-05 07:40 | P.HP_ITS ---
History of Present Illness *Admission Date: 08/05/24 *Reason for visit:: Nausea, vomiting and diarrhea *History of present illness: Mrs. Kebede is a 59-year-old female who is here for diagnostic upper endoscopy and colonoscopy. The patient does have frequent diarrhea and was having 5-10 wa isha bowel movements daily with urgency and incontinence. She also reports nausea 3-4 times a week with vomiting once weekly. The examination is deemed medically necessary for diagnostic EGD and colonoscopy. The patient has been seen, interviewed and examined prior to the procedure by both myself and the anesthesia provider. [facility] Disclaimer: The information contained in this section may have been updated after the patient was seen, as this information can be updated by other users. Medical History Retraction of tympanic membrane of left ear Hearing difficulty Ear congestion Gastroenteritis and colitis, viral Gastroenteritis Asthma Moderate persistent asthma COPD (chronic obstructive pulmonary disease) Dyspnea on exertion Seasonal allergies Smoking greater than 30 pack years Chronic recurrent sinusitis Seasonal allergic rhinitis COPD with exacerbation Irritable bowel disease Hypertension Hypothyroidism Depression Surgical History History of cholecystectomy History of back surgery Family History Mother Cancer breast and cervical Grandfather Cancer Colon and prostate Father Cancer Metastatic Disease Other Coronary artery disease Diabetes FHx: mental illness Heart attack Stroke Social History Smoking Status: Current every day smoker tobacco type: cigarettes packs per day: 1 second hand exposure: No alcohol intake: never substance use type: denies use current occupational status: other Travel in the last 8 weeks: None household members: other housing: house number of children: 2 current occupational exposures/hazards: No caffeine: Yes do you feel safe at home: Yes victim of physical abuse: No victim of emotional abuse: No victim of sexual abuse: No would you like helpful sources: No Have you lived/traveled outside US in past 30 days?: No Contact w/someone who lives/traveled outside US past 30 days?: No Exposure to someone with infectious disease in past 14 days?: No Do you have a fever (greater than 100.4 F or 38 C)?: No Have you tested positive for COVID-19: No Exposed to someone with COVID-19 in past 14 days?: No Do you have a sore throat?: No Do you have a cough?: No Do you have any weakness?: No Do you have any diarrhea?: No Are you experiencing any unusual bleeding?: No Do you have any muscle aches/pain?: No Do you have any abdominal pain?: No Are you experiencing loss of taste or smell?: No Other Medical History Have you received the Flu Vaccine for this season: No Have you received the Pneumonia Vaccine: Yes Review of Systems Review of Systems Review of systems (narrative): Negative *Cardiovascular Comments: Negative *Gastrointestinal Comments: Negative *Genitourinary Comments: Negative *Musculoskeletal Comments: Negative *Neurologic Comments: Negative Meds Home Medications and Allergies Home Medications ?Medication ?Instructions ?Recorded ?Confirmed ?Type epinephrine 0.3 mg/0.3 mL See Rx Instructions .Route 09/18/23 08/05/24 Rx injection, auto-injector .COMPLEX ALLERGIES #2 ea albuterol sulfate 90 mcg/actuation 2 inh inhalation Q4-6H PRN 12/16/23 08/05/24 Rx aerosol inhaler (Ventolin HFA) shortness of breath or wheezing 30 days #8.5 grams alendronate 70 mg tablet 70 mg PO WEEKLY #12 tabs 12/16/23 08/05/24 Rx budesonide-formoterol HFA 160 2 puff inhalation BID Breathing 12/16/23 08/05/24 Rx mcg-4.5 mcg/actuation aerosol Problems #10.2 grams inhaler (Symbicort) cholecalciferol (vitamin D3) 50 2,000 unit PO DAILY Supplement #90 12/16/23 08/05/24 Rx mcg (2,000 unit) capsule caps fluticasone propionate 50 2 spray intranasal DAILY #16 grams 12/16/23 08/05/24 Rx mcg/actuation nasal spray,suspension galcanezumab-gnlm 120 mg/mL 120 mg SQ QMONTH Chronic 12/16/23 08/05/24 Rx subcutaneous pen injector intractable migraine 30 days #1 mL (Emgality Pen) ipratropium 0.5 mg-albuterol 3 mg 3 ml inhalation Q4-6H PRN 12/16/23 08/05/24 Rx (2.5 mg base)/3 mL nebulization shortness of breath or wheezing soln #180 mL levothyroxine 75 mcg tablet 75 mcg PO DAILY THYROID 90 days 12/16/23 08/05/24 Rx #90 tabs loratadine 10 mg tablet 10 mg PO DAILY ALLERGIES 90 days 12/16/23 08/05/24 Rx #90 tabs losartan 50 mg tablet 50 mg PO DAILY blood pressure #90 12/16/23 08/05/24 Rx tabs metoprolol tartrate 50 mg tablet See Rx Instructions .Route 12/16/23 08/05/24 Rx .COMPLEX #90 tabs omeprazole 40 mg capsule,delayed 40 mg PO DAILY STOMACH 90 days #90 12/16/23 08/05/24 Rx release caps spironolactone 25 mg tablet 25 mg PO DAILY Fluid #90 tabs 12/16/23 08/05/24 Rx simethicone 125 mg chewable tablet 125 mg PO BID PRN abdominal 12/26/23 08/05/24 Rx distention 30 days #60 tabs ondansetron HCl 8 mg tablet See Rx Instructions .Route 04/15/24 08/05/24 Rx .COMPLEX #60 tabs quetiapine 100 mg tablet See Rx Instructions .Route 04/15/24 08/05/24 Rx .COMPLEX #60 tabs inclisiran 284 mg/1.5 mL 284 mg (1.5 mL) SQ [id number] #1.5 mL 05/20/24 08/05/24 Rx subcutaneous syringe (Leqvio) cyproheptadine 4 mg tablet 4 mg PO HS Migraine prevention 06/11/24 08/05/24 Rx #60 tabs tizanidine 4 mg tablet 4 mg PO TID PRN . 06/11/24 08/05/24 History aspirin 81 mg tablet,delayed See Rx Instructions .Route 06/17/24 08/05/24 Rx release .COMPLEX #90 tabs gabapentin 300 mg capsule 600 mg (2 x 300 mg) PO TID Pain 30 06/17/24 08/05/24 Rx days #180 caps montelukast 10 mg tablet 10 mg PO DAILY #90 tabs 06/17/24 08/05/24 Rx (Singulair) ubrogepant 100 mg tablet (Ubrelvy) See Rx Instructions .Route 06/17/24 08/05/24 Rx .COMPLEX #10 tabs vortioxetine 20 mg tablet See Rx Instructions .Route 06/17/24 08/05/24 Rx (Trintellix) .COMPLEX #90 tabs budesonide 3 mg 9 mg (3 x 3 mg) PO DAILY #90 ea 06/18/24 08/05/24 Rx capsule,delayed,extended release zinc oxide 40 % topical ointment 1 applic topical 6XD PRN skin 06/18/24 08/05/24 Rx (Aquaphor Baby Diaper Rash) irritation #56 grams sodium,potassium,mag sulfates 17.5 See Rx Instructions PO .COMPLEX 07/23/24 08/05/24 Rx gram-3.13 gram-1.6 gram oral soln #354 mL (Suprep Bowel Prep Kit) hydrocodone 7.5 mg-acetaminophen 1 tab PO QID PRN pain 30 days #120 07/30/24 08/05/24 Rx 325 mg tablet tabs lorazepam 1 mg tablet (Ativan) 1 mg PO TID PRN anxiety #90 tabs 08/04/24 08/05/24 Rx New Prescriptions to Start Prescriptions: Allergies Allergy/AdvReac Type Severity Reaction Status Date / Time azithromycin Allergy Severe throat Verified 08/05/24 06:31 swelling banana Allergy Severe Anaphylaxis Verified 08/05/24 06:31 kiwi Allergy Severe Anaphylaxis Verified 08/05/24 06:31 oxymetazoline (From Afrin Allergy Severe TONGUE Verified 08/05/24 06:31 (oxymetazoline)) SWELLING iodine (IODINE) Allergy Unknown Difficulty Verified 08/05/24 06:31 Breathing latex (LATEX) Allergy Unknown Hives Verified 08/05/24 06:31 Sulfa (Sulfonamide Allergy Unknown Hives Verified 08/05/24 06:31 Antibiotics) (SULFA (SULFONAMIDE ANTIBIOTICS)) venom-honey bee (BEE VENOM Allergy Unknown Hives Verified 08/05/24 06:31 (HONEY BEE)) pantoprazole (From Protonix) Allergy Vomiting Verified 08/05/24 06:31 diclofenac AdvReac Dizziness Verified 08/05/24 06:31 SHELLFISH (FOOD) Allergy Unknown I-RASH Uncoded 07/23/24 13:11 atorvastatin AdvReac Mild Muscle Pain Uncoded 07/23/24 13:11 zetia AdvReac Mild Muscle Pain Uncoded 07/23/24 13:11 Exam Data for Last 24 hours Vital signs and Labs for Last 24 Hours: Temp Pulse Resp BP Pulse Ox O2 Del Method 97.0 F L 85 18 143/97 H 96 Room Air 08/05/24 06:32 08/05/24 06:32 08/05/24 06:32 08/05/24 06:32 08/05/24 06:32 08/05/24 06:32 *Routine HEENT Exam Head: Present normocephalic Eye: Present EOMI and PERRL ENT: Present mucous membranes moist *Routine Neck Exam Neck: Present supple *Routine Respiratory Exam Respiratory: Present CTA bilaterally *Routine Cardiovascular Exam Cardiovascular: Present RRR *Routine Abdominal Exam Abdominal: Present soft and normoactive bowel sounds; Absent tenderness *Routine Rectal Exam Rectal:: deferred *Routine Genitalia Exam Genitalia:: deferred *Routine Extremities Exam Extremities: Absent cyanosis, clubbing or edema *Routine Skin Exam Skin: Present warm; Absent rash *Routine Neurological Exam Neurological: Present alert and oriented X3 Assessment and Plan *Assessment and plan (1) Nausea & vomiting: Status: Acute Category: Medical Code(s): R11.2 - Nausea with vomiting, unspecified (2) Diarrhea: Status: Acute Qualifiers: Diarrhea type: unspecified type Qualified Code(s): R19.7 - Diarrhea, unspecified Category: Medical Code(s): R19.7 - Diarrhea, unspecified (3) Fecal urgency: Status: Acute Category: Medical Code(s): R15.2 - Fecal urgency (4) Incontinence: Status: Chronic Qualifiers: Incontinence type: fecal Fecal incontinence type: unspecified Qualified Code(s): R15.9 - Full incontinence of feces Category: Medical Code(s): R32 - Unspecified urinary incontinence (5) Weight loss: Status: Acute Category: Medical Code(s): R63.4 - Abnormal weight loss (6) Bloating: Status: Acute Category: Medical Code(s): R14.0 - Abdominal distension (gaseous) Plan A/P: 1. Nausea and vomiting, loss of appetite weight loss and diarrhea with with fecal urgency incontinence is the preprocedural diagnosis. The patient will be anesthetized/sedated using MAC sedation. The patient has been seen and examined. Cardiac and lung assessment prior to the examination is stable. Proceed with planned diagnostic EGD and colonoscopy
--- NOTE | 2024-08-05 07:44 | P.PCN_ITS ---
[facility] Procedure Note Date: 08/05/24 Procedure Note:: Upper Endoscopy Procedure Report: Esophagogastroduodenoscopy with cold biopsies Endoscopost: Jeffrey Caldera II, MD Referring Physician: Israel Grover DO Date of Procedure: August 05, 2024 Equipment: Olympus GIF 190 standard upper endoscope Sedation: MAC sedation Indications: Mrs. Kebede is a 59-year-old female with nausea and intermittent vomiting. The patient does report some loss of appetite, bloating, heartburn and reflux. She has some early satiety. She does report a history of H. pylori years ago. The patient also suffers from diarrhea with fecal urgency, frequency and fecal incontinence. She has 5-10 watery bowel movements daily. She does have a history of lymphocytic colitis and is on budesonide. Her colonoscopy with tx in February 2020 revealed no colonic polyps but she did have left-sided diverticulosis with evidence of mild chronic sigmoid diverticulitis versus diverticular associated colitis. The patient does have perianal excoriation and dermatitis from the diarrhea. Procedure: Prior to the procedure, a history and physical exam was performed, and patient's medications and allergies were reviewed. The risks, benefits and alternatives of the sedation and procedure were discussed with the patient. All questions were answered and informed consent was obtained. The patient was brought to the procedure room. Patient identification and proposed procedure were verified by the physician and the nurse. The patient was placed in a left lateral decubitus position and the scope was passed under direct vision. Throughout the procedure, the patient's blood pressure, pulse, and oxygen saturations were monitored continuously. The upper GI endoscopy was accomplished without difficulty. The patient tolerated the procedure well. Findings: The scope was passed directly into the upper esophagus and advanced to the third portion of the duodenum. The post bulbar duodenum and duodenal bulb were normal with normal mucosa and conniventes. Cold biopsies were taken from the first portion of duodenum and duodenal bulb to rule out celiac disease. The scope was withdrawn through a normal duodenal bulb and pylorus into the stomach. There was some mild linear reactive gastropathy of the antrum. The body and fundus of the stomach were grossly normal. Upon retroflexion there was no hiatal hernia. The scope was then withdrawn into the esophagus. There was no evidence of reflux esophagitis or Khan's. There were no rings or furrowing. There were tertiary contractions and evidence of mild esophageal dysmotility. The remainder of the esophageal mucosa was normal. Impression: 1. Nonerosive GERD with mild esophageal dysmotility 2. Mild linear reactive gastropathy of antrum Plan: I will follow-up the biopsies and proceed with diagnostic colonoscopy. 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 We will discuss treatment options.
[2024-08-05 07:48] VITALS: O2SAT 97
--- NOTE | 2024-08-05 08:08 | HMH.PROCNOTE ---
[facility] Procedure Note Date: 08/05/24 Time: 08:08 Procedure Note:: Colonoscopy Procedure Report: Colonoscopy with cold snare polypectomy and cold biopsies Endoscopist: Jeffrey Caldera II, MD Referring physician: Israel Grover DO Date of Procedure: August 05, 2024 Equipment: Olympus 190 variable stiffness pediatric colonoscope Sedation: MAC sedation Indication: Mrs. Kebede is a 59-year-old female with nausea and intermittent vomiting. The patient does report some loss of appetite, bloating, heartburn and reflux. She has some early satiety. She does report a history of H. pylori years ago. The patient also suffers from diarrhea with fecal urgency, frequency and fecal incontinence. She has 5-10 watery bowel movements daily. She does have a history of lymphocytic colitis and is on budesonide. Her colonoscopy with ky in February 2020 revealed no colonic polyps but she did have left-sided diverticulosis with evidence of mild chronic sigmoid diverticulitis versus diverticular associated colitis. The patient does have perianal excoriation and dermatitis from the diarrhea. Procedure: Prior to the procedure, a history and physical exam was performed, and patient's medications and allergies were reviewed. The risks, benefits and alternatives of the sedation and procedure were discussed with the patient. All questions were answered and informed consent was obtained. The patient was brought to the procedure room. Patient identification and proposed procedure were verified by the physician and the nurse. The patient was placed in a left lateral decubitus position and the scope was passed under direct vision. Throughout the procedure, the patient's blood pressure, pulse, and oxygen saturations were monitored continuously. The colonoscopy was accomplished without difficulty. The patient tolerated the procedure well. Findings: On digital rectal examination there was normal rectal tone. There were no external hemorrhoids. The colonoscope was introduced through the anal canal to the rectum and advanced to the cecum. The ileocecal valve and appendiceal orifice were identified. The scope was advanced a short distance into the ileum which appeared grossly normal. The scope was then withdrawn into the colon. There was a single 4 mm polyp in the ascending colon removed via cold snare polypectomy. Random biopsies were taken from the right and left colon to rule out microscopic colitis. The remaining cecum, ascending and transverse colon and mucosa were grossly normal. There were scattered diverticuli throughout the descending and sigmoid colon (LEFT colon). There was no evidence of any diverticular associated colitis. The rectum itself was normal. Upon retroflexion within the rectum there were grade 1-2 internal hemorrhoids. The preparation was excellent throughout with [place] Preparation Score of 9. The cecal time was 12 minutes. Impression: 1. Diminutive ascending colon polyp (4 mm) 2. Extensive left-sided diverticulosis 3. Grade 1-2 internal hemorrhoids Plan: I will follow-up the biopsies to rule out microscopic colitis. The patient is on budesonide but still has significant breakthrough diarrhea and bowel control difficulties. I would recommend bulking FiberCon and addition of colestipol. The patient has had former cholecystectomy. I do suspect some bile acid diarrhea. Certainly if her urgency and incontinence persist, would consider sacral neuromodulation (InterStim or Axonics). I will follow-up the polyp histology and recommend repeat surveillance colonoscopy again in 7 years.
[2024-08-05 08:11] VITALS: BP 99/54; PULSE 78; RESP 16; TEMP 36.6; O2SAT 95
[2024-08-05 08:21] VITALS: BP 106/66; PULSE 76; RESP 16; TEMP 36.6; O2SAT 96
[2024-08-05 08:31] VITALS: BP 108/61; PULSE 73; RESP 16; O2SAT 95
[2024-08-05 08:41] VITALS: BP 130/65; PULSE 74; RESP 16; TEMP 36.6; O2SAT 95
== END 2024-08-05 08:56 | disposition home or self-care (01) ==
PROVIDERS: PCP Internal Medicine; Visit Provider Internal Medicine Gastroenterology
PROC: 0DJ08ZZ Inspection of Upper Intestinal Tract, Via Natural or Artificial Opening Endoscopic (ICD-10-PCS; CPT 45378; principal; 2024-08-05 07:30)
DX: R11.2 Nausea with vomiting, unspecified (principal); R19.7 Diarrhea, unspecified; R15.2 Fecal urgency; R15.9 Full incontinence of feces; R63.4 Abnormal weight loss; R14.0 Abdominal distension (gaseous); R10.9 Unspecified abdominal pain; K58.0 Irritable bowel syndrome with diarrhea; K21.9 Gastro-esophageal reflux disease without esophagitis; K22.4 Dyskinesia of esophagus; K31.9 Disease of stomach and duodenum, unspecified; K63.5 Polyp of colon; K57.30 Diverticulosis of large intestine without perforation or abscess without bleeding; K64.8 Other hemorrhoids
CPT/HCPCS: 43239; 45380; 45385; J7120

== ENCOUNTER 2024-09-01 15:55 | Outpatient (CLI) | payer OTHER, SELFPAY ==
--- NOTE | 2024-09-01 15:55 | MM_ITS ---
PROCEDURE INFORMATION: Exam: MG Bilateral Screening 3D Mammography Exam date and time: 09/01/2024 4:03 PM Age: 59 years old Clinical indication: Screening mammogram TECHNIQUE: Imaging protocol: Bilateral Screening tomosynthesis and 2D mammography including computer-aided detection (CAD) when performed. COMPARISON: 1. MG MM DIG SCREENING MAMM BI W/CAD 08/28/2023 11:02 AM 2. MG MM DIG SCREENING MAMM BI W/CAD 02/10/2020 8:53 AM FINDINGS: MAMMOGRAPHY: Breast composition: There are scattered areas of fibroglandular density. Mass: None. Architectural distortion: No new or suspicious architectural distortion. Calcifications: No new or suspicious calcifications are present Asymmetric density: No new or suspicious asymmetric density is present Skin thickening: None. Axillary adenopathy: None. IMPRESSION: No mammographic evidence of malignancy. Recommend annual screening mammography unless otherwise clinically indicated. ASSESSMENT: BI-RADS category 1: Negative.
== END 2024-09-01 23:59 | disposition home or self-care (01) ==
LOC: RAD 15:55
PROVIDERS: PCP Internal Medicine; Visit Provider Internal Medicine
DX: Z12.31 Encounter for screening mammogram for malignant neoplasm of breast (principal)
CPT/HCPCS: 77063; 77067

== ENCOUNTER 2024-12-14 10:50 | Outpatient (CLI) | payer MEDICARE, MEDICAID, SELFPAY ==
--- OUTSIDE RECORDS SUMMARY | 2024-12-14 10:54 | XMS_ITS | Clinical Summary ---
Author Organization Healthcare Address [address] [place], [place] [id number] Care Team Providers Care Block Mechanic Name Role Phone Thee Isaac MD Primary Care Provider [phone] Family History Medical History Relation Name Comments Hypertension Maternal Grandmother Stroke Maternal Grandmother Cardiac disorder Mother Colon cancer Paternal Grandfather Diabetes Paternal Grandfather Stroke Paternal Grandfather Relation Name Status Comments Maternal Grandmother Mother Paternal Grandfather Social History Tobacco Use Types Packs/Day Years Used Date Smoking Tobacco: Every Day Alcohol Use Standard Drinks/Week Comments Yes 0 (1 standard drink = 0.6 oz pure alcohol) Alcoholic Drinks/day: Minimum alcohol consumption Comments Unknown Sex and Gender Information Value Date Recorded Sex Assigned at Not on file Legal Sex Female 8:09 PM EDT Gender Identity Not on file Sexual Orientation Not on file Last Filed Vital Signs Vital Sign Reading Time Taken Comments Blood Pressure - - Pulse - - Temperature - - Respiratory Rate - - Oxygen Saturation - - Inhaled Oxygen Concentration - - Weight 55.9 kg (123 lb 3.8 oz) 04/22/2017 9:44 A M EDT Height 154.9 cm (5' 1 ) 04/22/2017 9:44 AM EDT Body Mass Index 23.29 04/22/2017 9:44 AM EDT Plan of Treatment Health Maintenance Due Date Last Done Comments [facility]-Depression Screening 1967 [facility]-/Child/Adol SDOH Screenings 1967 [facility]- SDOH Screenings 1985 [facility]-Adult SDOH Screenings 1985 [facility]-Hepatitis B Vaccines (1 of 3 - 19+ 3-dose series) 1986 [facility]-Pap Smear 1988 [facility]-Cervical Cancer Screening 1997 [facility]-HPV/Cotest 1997 CT Colonography 2012 Colonoscopy 2012 FIT-DNA 2012 FIT 2012 FOBT 2012 Sigmoidoscopy 2012 [facility]-Colorectal Cancer Screening 2012 [facility]-DTaP,Tdap,and Td Vaccine s (2 - Td or Tdap) 02/29/2016 02/28/2006 [facility]-Zoster Vaccines (1 of 2) 2017 [facility]-Pneumococcal Vaccine: 50 + Years (2 of 2 - PCV) 07/25/2021 07/25/2020 [id number] Vaccine ( - season) 2024 05/27/2021, 10/09/2020, 09/17/2020 [facility]-Influenza Vaccine (Seaso n Ended) 2025 07/25/2020, 06/08/2018 HPV Vaccines Aged Out No longer eligi ble based on patient's age to complete this topic [facility]-HIB Vaccines Aged Out No longer e ligible based on patient's age to complete this topic [facility]-Hepatitis A Vaccines Aged Out No longer eligible based on patient's age to complete this topic [facility]-IPV Vaccines Aged Out No longer e ligible based on patient's age to complete this topic [facility]-Rotavirus Vaccines Aged Out No lo nger eligible based on patient's age to complete this topic Care Teams Block Mechanic Relationship Specialty Start Date End Date Thee Isaac MD [address] [facility] [place] [address] PCP - General 11/18/20
--- NOTE | 2024-12-14 11:00 | CA_ITS ---
APPROVED REPORT EXAM: Comprehensive 2D, Doppler, and color-flow Echocardiogram Assorter: Laura Weinberg RVT Ht: 5 ft 0 in Wt: 125lbs BSA: 1.53 BP: 143/97 mmHg Indications: DYSPENA 2D Dimensions LA Volume 18.90 mL LA Volume Index 12.35 mL/m2 (M/F) 16-34 M-Mode Dimensions RVDd 2.40 cm (0.9-2.6) LA Diam 3.69 cm (1.9-4.0) LVDd 4.77 cm (3.5-5.7) LVDs 2.96 cm (3.5-5.7) IVSd 0.60 cm (0.6-1.1) PWd 0.28 cm (0.6-1.1) EF (Teich) 68.00% FS 37.90% EDV (Teich) 106.00 mL TAPSE 1.83 (<1.7) ESV (Teich) 33.90 mL LV Diastology E Decel Time 150 (160-240 msec) E/A Ratio 1.0 Aortic Valve ABHISHEK Index 1.83 cm2/m2 AoV Peak Zhang. 90.0 (50-130 cm/s) AI PHT 740.00 ms AO Peak GR. 3.30 mmHg AO Mean GR. 2.00 (<5 mmHg) AO VTI 17.3 (18-25 cm) ABHISHEK (VTI) 2.88 (2.5-4.5 cm2) Mitral Valve MV E Max Zhang. 82.0 (40-130 cm/s) MV A Velocity 86.0 (40-130 cm/s) E/A Ratio 0.95 MV PHT 44.0 ms Pulmonary Valve PV Peak Velocity 47.0 (50-150 cm/s) Tricuspid Valve TR P. Velocity 248.00 cm/s RAP Estimate 10.00 mmHg RVSP 34.60 mmHg Left Ventricle The left ventricle is normal size. The left ventricular systolic function is low normal. There is increased LV wall thickness. There is mild hypokinesis of the mid to distal inferoseptal LV wall. Diastolic function is normal. LVEF is 50%. Right Ventricle The right ventricle is normal size. The right ventricular systolic function is normal. Atria Left atrium is mildly dilated. Right atrium is mildly dilated. There is no Doppler evidence of interatrial shunt. Aortic Valve Aortic valve is mildly thickened. There is no aortic valvular stenosis. Mild aortic regurgitation. Mitral Valve The mitral valve is mildly thickened. No evidence of mitral valve stenosis. Mild to moderate mitral regurgitation. Tricuspid Valve Tricuspid valve is grossly normal in structure and function. Mild tricuspid regurgitation. RVSP is 20-25 mmHg. Pulmonic Valve The pulmonary valve is normal in structure. Trace pulmonic regurgitation. Great Vessels The aortic root is normal in size. IVC is normal in size and collapses >50% with inspiration. Pericardium There is no pericardial effusion. Other Information Study Quality: Fair Conclusion Low-normal LV systolic function (LVEF 50%). Mild hypokinesis of the mid to distal inferoseptal LV wall. Mild biatrial dilation. Mild AI, mild MR, mild TR. Electronically signed by : Solange Babin MD 12/22/2024 13:36:48
== END 2024-12-14 23:59 | disposition home or self-care (01) ==
LOC: RT 10:51
PROVIDERS: PCP Nurse Practitioner Family; Visit Provider Physician Assistant
DX: I08.3 Combined rheumatic disorders of mitral, aortic and tricuspid valves (principal); I25.10 Atherosclerotic heart disease of native coronary artery without angina pectoris
CPT/HCPCS: 93306

== ENCOUNTER 2025-03-05 11:41 | Outpatient (CLI) | payer MEDICARE, MEDICAID, SELFPAY ==
--- OUTSIDE RECORDS SUMMARY | 2025-03-05 11:44 | XMS_ITS | Clinical Summary ---
Author Organization Healthcare Address [address] [place], [place] [id number] Care Team Providers Care Auditor Medical Claims Name Role Phone Thee Isaac MD Primary Care Provider + [phone] Family History Medical History Relation Name Comments [...] (2 of 2 - PCV) 07/25/2021 07/25/2020 [id number] Vaccine ( - season) 2024 05/27/2021, 10/09/2020, 09/17/2020 [facility]-Influenza Vaccine (#1) 03/08/202507/25, 06/08/2018 HPV Vaccines Aged Out No longer [...] age to complete this topic Care Teams Auditor Medical Claims Relationship Specialty Start Date End Date Thee Isaac MD [address] [place] [address] CHRISTIE Landry [address] PCP - General 11/18/20
[2025-03-05 12:10] LABS: Hematocrit 42.6 % (37.0-47.0); Hemoglobin 14.4 g/dL (12.2-16.2); Immature Granulocytes % 0.3 %; Mean Corpuscular HGB Conc 33.8 g/dL (31.8-35.4); Mean Corpuscular Hemoglobin 31.6 pg (27.0-31.2); Mean Corpuscular Volume 93.4 fl (81-99); Nucleated Red Blood Cells % 0 %; Platelet Count 322 K/mm3 (142-424); Red Blood Count 4.56 M/mm3 (4.20-5.40); Red Cell Distribution Width-SD 43.6 fL; White Blood Count 8.8 K/mm3 (4.8-10.8)
[2025-03-05 13:28] LABS: Chloride 103 mmol/L (98-107); Potassium 4.2 mmoL/L (3.5-5.1); Sodium 135 mmol/L (136-145)
[2025-03-05 13:30] LABS: Blood Urea Nitrogen 8 mg/dl (7-17); Creatinine,Serum 0.50 mg/dl (0.52-1.04); Estimated Glomerular Filt Rate 127 ml/min (>60); GFR (African American) 154 ML/MIN (>60)
[2025-03-05 13:31] LABS: Alanine Aminotransferase 17 U/L (12-78); Alkaline Phosphatase 70 U/L (38-126); Aspartate Amino Transferase 28 U/L (14-36); Bilirubin,Total 0.3 mg/dl (0.2-1.3); Calcium 9.5 mg/dl (8.4-10.2); Cholesterol 183 mg/dl (140-200); Glucose 93 mg/dl (74-100); HDL Cholesterol 60 mg/dl (40-60); Total Protein,Serum 6.9 g/dl (6.3-8.2); Triglycerides 180 mg/dl (30-150)
[2025-03-05 13:42] LABS: Anion Gap 9.2 mEq/L (5-15); Carbon Dioxide 27 mmol/L (22.0-30.0)
[2025-03-05 13:43] LABS: Albumin Level 4.5 g/dl (3.5-5.0); Albumin/Globulin Ratio 1.9 (1.1-1.8); Globulin 2.4 g/dL (1.3-3.2)
[2025-03-05 14:01] LABS: Thyroid Stimulating Hormone 1.60 uIU/mL (0.465-4.68)
== END 2025-03-05 23:59 | disposition home or self-care (01) ==
LOC: LAB 11:42
PROVIDERS: PCP Nurse Practitioner Family; Visit Provider Nurse Practitioner Family
DX: E16.2 Hypoglycemia, unspecified (principal); E78.5 Hyperlipidemia, unspecified; E03.9 Hypothyroidism, unspecified; I10 Essential (primary) hypertension
CPT/HCPCS: 36415; 80053; 80061; 84443; 85025

== ENCOUNTER 2025-06-23 13:56 | Outpatient (CLI) | payer MEDICARE, MEDICAID, SELFPAY ==
--- NOTE | 2025-06-23 14:00 | XR_ITS ---
FINAL REPORT CLINICAL HISTORY: Nonspecific cough FINDINGS: PA and lateral views of the chest are obtained. There is no prior exam for comparison. The cardiac and mediastinal silhouettes are within normal limits. There are changes from emphysema. Evidence of prior granulomatous disease is noted. The lungs are otherwise clear. There is no pleural effusion or pneumothorax. There are compression deformities of several thoracic vertebral bodies. Changes from kyphoplasty are noted at T6 and T8. IMPRESSION: No radiographic evidence of acute cardiac or pulmonary disease. Reviewed, Interpreted and Dictated by Maria Teresa Calero MD Transcribed by Telma Blevins Authenticated and . [facility]
[2025-06-23 14:08] LABS: Coronavirus 19, PCR Not Detected (NotDetected); Influenza A, PCR Not Detected (NotDetected); Influenza B, PCR Not Detected (NotDetected)
[2025-06-23 14:23] LABS: Hematocrit 42.9 % (37.0-47.0); Hemoglobin 14.5 g/dL (12.2-16.2); Immature Granulocytes % 0.4 %; Mean Corpuscular HGB Conc 33.8 g/dL (31.8-35.4); Mean Corpuscular Hemoglobin 32.2 pg (27.0-31.2); Mean Corpuscular Volume 95.1 fl (81-99); Nucleated Red Blood Cells % 0 %; Platelet Count 354 K/mm3 (142-424); Red Blood Count 4.51 M/mm3 (4.20-5.40); Red Cell Distribution Width-SD 45.4 fL; White Blood Count 9.4 K/mm3 (4.8-10.8)
[2025-06-23 14:58] LABS: Alanine Aminotransferase 23 U/L (12-78); Albumin Level 4.9 g/dl (3.5-5.0); Alkaline Phosphatase 76 U/L (38-126); Anion Gap 12.9 mEq/L (5-15); Aspartate Amino Transferase 29 U/L (14-36); Bilirubin,Direct 0.2 mg/dl (0.0-0.4); Bilirubin,Indirect 0.4 mg/dL (0.0-0.9); Bilirubin,Total 0.6 mg/dl (0.2-1.3); Bilirubin,Unconjugated 0.3 mg/dL (0.0-1.1); Blood Urea Nitrogen 13 mg/dl (7-17); Calcium 10.0 mg/dl (8.4-10.2); Carbon Dioxide 27 mmol/L (22.0-30.0); Chloride 102 mmol/L (98-107); Cholesterol 203 mg/dl (140-200); Creatinine,Serum 0.70 mg/dl (0.52-1.04); Estimated Glomerular Filt Rate 86 ml/min (>60); GFR (African American) 104 ML/MIN (>60); Glucose 105 mg/dl (74-100); HDL Cholesterol 69 mg/dl (40-60); Magnesium 1.8 mg/dl (1.6-2.3); Potassium 3.9 mmoL/L (3.5-5.1); Sodium 138 mmol/L (136-145); Total Protein,Serum 7.6 g/dl (6.3-8.2)
[2025-06-23 14:59] LABS: Triglycerides 463 mg/dl (30-150)
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
--- OUTSIDE RECORDS SUMMARY | 2025-06-23 15:24 | XMS_ITS | Continuity of Care Document ---
Author Organization [facility] [address] [place] [address] [place] [id number] Care Team Providers Care Mid Level Provider Name Role Phone ELLA SOARES Referring Provider [facility] Primary Care Provider Assessment No assessment recorded. Plan of Treatment Reminders Order Date Submit Date Provider Last Modified By Organization Details Last Modified Time Details Appointments Office Visit1 5 2025 08:30A M Pedrito Silver MD Not available Not available Not available Lab None record ed. Referral None record ed. Procedures None record ed. Surgeries None record ed. Imaging None record ed. Medication Orders None record ed. Patient TargetsNo targets recorded. Patient Instructions Encounter Date Encounter Id Patient Instructions Last Modified By Organization Details Last Modified Time 04/02/2025 [id number] Patient presente d for medication refill. Patient [...] service is preformed by Flako Monsivais, [employer] Manager. Not available 04/02/2025 11:06:54 Reason for Referral None Reported. Results Created Date Observation Date Name Description Value Unit Range Abnormal Flag Note LastModifiedBy Organization Detail LastModifiedTime 04/02/2004/02/2025 HYDRO CODON E/ ACETA MINOP HEN abnormal status abnormal Not Available Jun Loza MD [facility] (In House Lab) [address] [place], [address], 04/14/2025 14:47:05 04/02/20 25 04/02/2025 HYDRO CODON E/ ACETA MINOP HEN abnormal status high Not Available Jun Loza MD [facility] (In House Lab) [address] [place] [address], [id number], 04/14/2025 14:47:05 04/02/20 25 04/14/2025 OPIAT E DEFIN ITIVE PANEL LC/MS codeine 0.0 NG/mL <75.0 Not Available Main Loza MD [facility] (In House Lab) [address] [place] [address], [id number], 04/14/2025 14:47:05 04/02/20 25 04/14/2025 OPIAT E DEFIN ITIVE PANEL LC/MS morphine 0 NG/mL <75.0 Not Available Main Loza MD [facility] (In House Lab) [address] [place] [address], [address], 04/14/2025 14:47:05 04/02/20 25 04/14/2025 OPIAT E DEFIN ITIVE PANEL LC/MS 6-EDISON 0 NG/mL <15.0 Not Available Main Loza MD [facility] (In House Lab) [address] [place] [address], [address], 04/14/2025 14:47:05 04/02/20 25 04/14/2025 OPIAT E DEFIN ITIVE PANEL LC/MS hydromorphon e 62.6 NG/mL <75.0 Not Available Jun Loza MD [facility] (In House Lab) [address] [place] [address], [address], 04/14/2025 14:47:05 04/02/20 25 04/14/2025 OPIAT E DEFIN ITIVE PANEL LC/MS hydrocodone 883.2 NG/mL <75.0 abnormal Not Available Harry Loza MD [facility] (In House Lab) [address] [place] [address], [address], 04/14/2025 14:47:05 04/02/20 25 04/14/2025 OPIAT E DEFIN ITIVE PANEL LC/MS norhydrocodo ne 1525.3 NG/mL <75.0 abnormal Not Available Jun Loza MD [facility] (In House Lab) [address] [place] [address], [id number], 04/14/2025 14:47:05 04/02/20 25 04/14/2025 BENZO DIAZE PINE DEFIN ITIVE PANEL - LC/MS alprazolam 0 NG/mL <75.0 Not Available Main Loza MD [facility] (In House Lab) [address] [place] [address], [id number], 04/14/2025 14:47:04 04/02/20 25 04/14/2025 BENZO DIAZE PINE DEFIN ITIVE PANEL - LC/MS A-hydroxyalp razolam 0 NG/mL <75.0 Not Available Jun Loza MD [facility] (In House Lab) [address] [place] [address], [address], 04/14/2025 14:47:04 04/02/20 25 04/14/2025 BENZO DIAZE PINE DEFIN ITIVE PANEL - LC/MS clonazepam 0 NG/mL <75.0 Not Available Main Loza MD [facility] (In House Lab) [address] [place] [address], [id number], 04/14/2025 14:47:04 04/02/20 25 04/14/2025 BENZO DIAZE PINE DEFIN ITIVE PANEL - LC/MS 7-aminoclona zepam 0 NG/mL <75.0 Not Available Jun Loza MD [facility] (In House Lab) [address] [place] [address], [address], 04/14/2025 14:47:04 04/02/20 25 04/14/2025 BENZO DIAZE PINE DEFIN ITIVE PANEL - LC/MS diazepam 0 NG/mL <75.0 Not Available Main Loza MD [facility] (In House Lab) [address] [place] [address], [address], 04/14/2025 14:47:04 04/02/20 25 04/14/2025 BENZO DIAZE PINE DEFIN ITIVE PANEL - LC/MS oxazepam 0 NG/mL <75.0 Not Available Main Loza MD [facility] (In House Lab) [address] [place] [address], [address], 04/14/2025 14:47:04 04/02/20 25 04/14/2025 BENZO DIAZE PINE DEFIN ITIVE PANEL - LC/MS temazepam 0 NG/mL <75.0 Not Available Main Loza MD [facility] (In House Lab) [address] [place] [address], [address], 04/14/2025 14:47:04 04/02/20 25 04/14/2025 BENZO DIAZE PINE DEFIN ITIVE PANEL - LC/MS lorazepam 612.0 NG/mL <75.0 abnormal Not Available Main Loza MD [facility] (In House Lab) [address] [place] [address], [address], 04/14/2025 14:47:04 04/02/20 25 04/02/2025 D-PRE SUMPT RABIA URINE DRUG REPOR T amphetamine NEGATI VE NG/mL <1000. 0 Not Available Main Loza MD [facility] (In House Lab) [address] [place] [address], [address], 04/14/2025 14:47:04 04/02/20 25 04/02/2025 D-PRE SUMPT RABIA URINE DRUG REPOR T benzodiazepi ne <3.3 NG/mL <200.0 Curre nt metho d may not detec t low level s of Klono pin Not Available Main Loza MD [facility] (In House Lab) [address] [place] [address], [address], 04/14/2025 14:47:04 04/02/20 25 04/02/2025 D-PRE SUMPT RABIA URINE DRUG REPOR T buprenorphin e NEGATI VE NG/mL <10.0 Not Available Main Loza MD [facility] (In House Lab) [address] [place], [address], 04/14/2025 14:47:04 04/02/2004/02/2025 D-PRE SUMPT RABIA URINE DRUG REPOR T cannabinoid NEGATI VE NG/mL <50.0 Not Available Main Loza MD [facility] (In House Lab) [address] [place] [address], [address], 04/14/2025 14:47:04 04/02/2004/02/2025 D-PRE SUMPT RABIA URINE DRUG REPOR T cocaine NEGATI VE NG/mL <300.0 Not Available Main Loza MD [facility] (In House Lab) [address] [place] [address], [address], 04/14/2025 14:47:04 04/02/2004/02/2025 D-PRE SUMPT RABIA URINE DRUG REPOR T ethanol NEGATI VE mg/dL <50.0 Not Available Main Loza MD [facility] (In House Lab) [address] [place] [address], [address], 04/14/2025 14:47:04 04/02/2004/02/2025 D-PRE SUMPT RABIA URINE DRUG REPOR T methadone 3.0 NG/mL <300.0 Not Available Main Loza MD [facility] (In House Lab) [address] [place] [address], [address], 04/14/2025 14:47:04 04/02/2004/02/2025 D-PRE SUMPT RABIA URINE DRUG REPOR T opiates 1000.0 NG/mL <300.0 high Opiat es inclu lukas Codei ne,Mo rphin e, Britton morph one,H ydroc odone Not Available Main Loza MD [facility] (In House Lab) [address] [place] [place] [address], [address], 04/14/2025 14:47:04 04/02/20 25 04/02/2025 D-PRE SUMPT RABIA URINE DRUG REPOR T oxycodone 14.0 NG/mL <300.0 Not Available Main Loza MD [facility] (In House Lab) [address] [place], [address], 04/14/2025 14:47:04 04/02/20 25 04/02/2025 D-PRE SUMPT RABIA URINE DRUG REPOR T urine creatinine (validity test) 34.5 mg/dL 20.0 - 300.0 Not Available Main Loza MD [facility] (In House Lab) [address] [place], [address], 04/14/2025 14:47:04 Result Notes None recorded. Problems Name Problem SNOMED Code Status Onset Date Resolution Date Notes Provider Name and Address Organization Details Recorded Time Chronic low back pain, unspecified back pain laterality, unspecified whether sciatica present 954113675 Active 2024 [place] [address] [place] [address], [address], [facility] 5 01:52:42 Other chronic pain 27200766 Active 2024 Lata Leavitt MD [address] [place] [address], [address], [facility] 5 01:52:54 Lumbar radiculopat hy 530544895 Active 2024 Lata Leavitt MD [address] [place] [address], [address], [facility] 5 01:53:37 Wedge compression fracture of unspecified thoracic vertebra, subsequent encounter for fracture with routine healing 648327225 Active 2024 [place] [address] [place] [address], [address], [facility] 5 01:54:01 Other interverteb ral disc degeneratio n, thoracic region 83211368 Active 2024 [facility] [place], [address], [facility] 5 01:54:19 Degeneratio n of interverteb ral disc of lumbar region with discogenic back pain and lower extremity pain 23617940 Active 2024 MD [address] [facility] [facility] [place], [address], [facility] 5 01:54:35 Chronic neck pain 1872907484499 Active 2024 MD Rosalba Cutler[address] [place] [address], [address], [facility] 5 01:55:12 Migraine without status migrainosus , not intractable , unspecified migraine type 39477367 Active 2024 [address] [facility] [facility] [place], [address], [facility] 5 01:59:05 IZABEL (generalize d anxiety disorder) 59259237 Active 2024 Lata Leavitt MD [address] [place] [address], [address], [facility] 5 01:59:18 Gastroesoph ageal reflux disease, unspecified whether esophagitis present 162098979 Active 2024 [address] [facility] [facility] [place], [address], [facility] 5 01:59:27 Hypothyroid ism, unspecified type 54477775 Active 2024 MD [address] [facility] [facility] [place], [address], [facility] 5 02:00:09 Essential (primary) hypertensio n 00798141 Active 2024 MD Rosalba Cutler[address] [place] [address] [place], [address], [facility] 5 02:00:19 Hyperlipide haley, unspecified hyperlipide haley type 89965139 Active 2024 Lata Leavitt MD [address] [place] [address], [address], [facility] 5 02:00:36 Asthma, unspecified asthma severity, unspecified whether complicated , unspecified whether persistent 661319015 Active 2024 Lata Leavitt MD [address] [place] [address] [place], [address], [facility] 5 02:01:45 Chronic obstructive pulmonary disease, unspecified COPD type 88801536 Active 2024 MD Rosalba Cutler[address] [place] [address], [address], [facility] 5 02:01:54 Irritable bowel syndrome, unspecified type 93803146 Active 2024 Lata Leavitt MD [address] [place], [place] [address], [address], [facility] 5 02:02:09 Major depressive disorder, remission status unspecified , unspecified whether recurrent 151424918 Active 2024 MD Rosalba Cutler[address] [place] [address] [place], [address], [facility] 5 02:02:24 Mitral valve insufficien cy, unspecified etiology 71834130 Active 2024 [address] [facility] [place], [address], [facility] 5 02:07:12 Insomnia, unspecified type 108322130 Active [address]24 [address] [facility] [place], [address], [facility] 5 02:07:27 PTSD (post-traum atic stress disorder) 22148139 Active [address]24 [address] [facility] [place], [address], [facility] 5 12:45:58 Scoliosis, unspecified scoliosis type, unspecified spinal region 247625134 Active [address] [facility] [place], [address], [facility] 5 12:46:30 Primary osteoarthri tis, unspecified site 873709655 Active [address] [facility] [place], [address], [facility] 5 12:46:49 Osteoporosi s, unspecified osteoporosi s type, unspecified pathologica l fracture presence 97897943 Active 2024 [place], [address], [facility] 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 5 14:14:04 Compression fracture of T8 vertebra, sequela 346932158 Active 2024 MD Paul Cutler [place] [address], [facility] 5 14:16:17 Notes:Some problems listed i n Documents: #[id number], #[id number] could not be added to this patient's chart. Please review these documents and add these problems to the patient's chart manually as needed. Problem Notes None recorded. Medical Equipment None Reported. Allergies Allergen ID Allergen Name Allergen Category Reaction Reaction Severity Criticality Documentation Date Start Date Code Code System Note Provider Name and Address Organization Details Recorded Time 09406 azithromy doc medicatio n anaphylax is Not available Not available 02/03/2025 23263 RxNorm Lata Leavitt MD [address] [place], [place] [address] [address], [facility] 5 01:56:06 85226 oxymetazo line medicatio n anaphylax is Not available Not available 02/03/2025 7812 RxNorm MD [place], [address] [place] [address] 4, [facility] 5 01:56:36 65906 iodine medicatio n dyspnea Not available Not available 02/03/2025 5933 RxNorm MD Rosalba Cutler [place], [address] [place] [address] 4, [facility] 5 01:56:55 89310 latex environme nt,medica tion hives Not available Not available 02/03/2025 22749 91 RxNorm MD [place], [address] [place] [address] 4, [facility] 5 01:57:12 35830 Substance with sulfonami de structure and antibacte rial mechanism of action (substanc e) medicatio n hives Not available Not available 02/03/2025 9[address]75 [address] MD [address], [place], [address], [facility] 5 01:57:26 29718 pantopraz ole medicatio n vomiting Not available Not available 02/03/2025 79512 [place], [address], [facility] 5 01:57:43 42117 diclofena c Not available dizziness Not available Not available 02/03/2025 3355 RxNorm Lata Leavitt MD [address] [place] [address], [address], [facility] 5 01:57:57 28700 atorvasta tin medicatio n myalgias (muscle pain) Not available Not available 02/03/2025 84339 [place], [address], [facility] 5 01:58:11 54683 shellfish derived food,medi cation rash Not available Not available 02/03/2025 Lata Leavitt MD [address] [place] [address], [address], [facility] 5 01:58:25 72708 Zetia medicatio n myalgias (muscle pain) Not available Not available 02/04/2025 51644 9 [place], [address], [facility] 5 12:38:43 [...] Not Available Vitals Date Recorded Body height Respiratory rate Body mass index (BMI) Body weight Heart rate Systolic And Diastolic Provider Name and Address Organization Details Last Updated DateTime 152.4 cm 18 /min 22.7 kg/m2 10275.7 1 g 79 /min 156/90 mm[Hg] Evangelina Diez- eet [facility] 15:10:16 Social History Question Answer Notes LastModified by [email or web address] Details LastModified Time Tobacco Smoking Status Current Every Day Smoker Lata Leavitt MD [address] [place], [address], [facility] 02/04/2025 12:37:30 What Is Your Level Of Caffeine Consumption? Occasional Information not available 02/04/2025 What Is The Highest Grade Or Level Of School You Have Completed Or The Highest Degree You Have Received? [id number] Vocational School Information not available 02/04/2025 What Is Your Relationship Status? Single Information not available 02/04/2025 How Much Tobacco Do You Smoke? 1 PPD Information not available 02/04/2025 Are You Currently In School? No Information not available 02/04/2025 Sex: Unknown Functional Status Question Answer Note LastModified by LOVEFiLM Details LastModified Time Do you use any illicit or recreational drugs? No Information not available 02/04/2025 What is your level of alcohol consumption? None Information not available 02/04/2025 Are you currently employed? No Disabled since around 2022 [facility] Information not available 02/04/2025 Mental Status None recorded. Family History Nothing Reported Notes:Mother: heart disease, breast & cervical cancer, sepsis Father: cancer everywhere Grandfather: colon & prostate cancer, diabetes, stroke Grandmother: HTN, stroke Other: CAD, diabetes, mental illness, [place], stroke Medical History No medical history recorded. Gynecological HistoryNo gynecological history recorded. Obstetrics History GPAL:G 0 P 0 0 0 0 Immunizations Vaccine Type Date Status Note Provider Nam e and Address Organization Details Recorded Time SARS-COV-2 (COVID-19) vaccine, UNSPECIFIED 05/27/2021 completed Lata Leavitt MD [address] [place] [address], [address], [place] [facility] 02/03/2025 02:04:02 Past Encounters Encounter ID Performer Location Encounter Start Date Encounter Closed Date Diagnosis/Indication Diagnosis SNOMED-CT Code Diagnosis ICD10 Code Diagnosis IMO Codes Diagnosis Note [id number] Aleks Silver MD [facility] [place] [address] 4 04/02/2025 15:02:05 04/02/2025 15:31:00 Chronic neck pain 2109532547 107 G89.29 M54.2 361765 Lumbar radiculopathy 128 370294 M54.16 96040 Degenerati on of lumbar intervertebral disc 73655141 M51.362 4855731936 Long-term current use of opiate analgesic drug 1477084331 30550 Z79.891 Diagnostic /Lab: Order Presumptiv e UDT [...] , tramadol, fentanyl, tapentadol and carisoprod ol). Health Concerns Section Related Observation LastModified by Organization Detai ls LastModified Time None Recorded Concern Status LastModified by Organization Details LastModified Time None Recorded Payers Encounter Date Sequence Insurance Name Policy Number Policy Espinosa Covered Member ID Espinosa Member ID Guarantor Name 04/02/2025 1 [facility] (MEDICARE REPLACEMENT/A DVANTAGE - HMO) [id number] Paige Delio [id number] Paige Kebede Notes Date Note Type Note Provider Name a wa Address Organization Details Recorded Time 04/02/2025 text/html Patient presents for medication refill. Patient states meds are still helping with her pain, pt is having increased muscle spasms Patient states pain is 8. Pedrito Silver MD [address] [facility], [place], [address], [facility] 04/02/2025 17:00:06 OBGyn Episode No OBEpisode recorded.
--- OUTSIDE RECORDS SUMMARY | 2025-06-23 15:24 | XMS_ITS | Clinical Summary ---
Author Organization Healthcare Address [address] [place], [place] [id number] Care Team Providers Care Rouge Mixer Name Role Phone Thee Isaac MD Primary Care Provider + [phone] Family History Medical History Relation Name Comments [...] (2 of 2 - PCV) 07/25/2021 07/25/2020 [id number] Vaccine (4 - season) 2025 05/27/2021, 10/09/2020, 09/17/2020 [facility]-Influenza Vaccine (#1) 03/08/202507/25, 06/08/2018 HPV Vaccines (No Doses Required) Completed [facility]-HIB Vaccines Aged Out No longer e [...] age to complete this topic Care Teams Rouge Mixer Relationship Specialty Start Date End Date Thee Isaac MD [address] [facility] [place] [address] PCP - General 11/18/20
--- OUTSIDE RECORDS SUMMARY | 2025-06-23 15:24 | XMS_ITS | Continuity of Care Document ---
Author Organization [facility]6 [facility] Address [address] [place] [id number] Care Team Providers Care Plumber Maintenance Name Role Phone ELLA SOARES Referring Provider [facility] Primary Care Provider Assessment Encounter Date Assessment Date Assessment LastModified by Organization Details LastModified Time 05/28/2025 05/28/2025 59 y/o Female C/O Chronic [...] tamino phen 325 mg tablet 2024 025 [facility], [address], [address], 05/28/2025 14:39:11 hydroc odone 10 mg-kasandra tamino phen 325 mg tablet 2024 025 [facility], [facility] [address], [address], 05/28/2025 14:39:12 pregab jn 25 mg capsul e 2024 025 [facility], [facility] [address], [address], 05/28/2025 14:39:11 Patient TargetsNo targets recorded. Patient InstructionsNo instructions recorded. Reason for Referral None Reported. Problems Name Problem SNOMED Code Status Onset Date Resolution Date Notes Provider Name and Address Organization Details Recorded Time Chronic low back pain, unspecified back pain laterality, unspecified whether sciatica present 447866260 Active 2024 MD Rosalba Cutler[address] [place], [address], [facility] 5 01:52:42 Other chronic pain 92868605 Active 2024 [place], [address], [facility] 5 01:52:54 Lumbar radiculopat hy 458147655 Active 2024 [place], [address], [place] [facility] 5 01:53:37 Wedge compression fracture of unspecified thoracic vertebra, subsequent encounter for fracture with routine healing 375657236 Active 2024 Lata Leavitt MD [address] [place], [address], [facility] 5 01:54:01 Other interverteb ral disc degeneratio n, thoracic region 22857330 Active 2024 [place] [address] [place], [place] [address], [address], [facility] 5 01:54:19 Degeneratio n of interverteb ral disc of lumbar region with discogenic back pain and lower extremity pain 60108892 Active 2024 Lata Leavitt MD [address] [facility] [place], [address], [facility] 5 01:54:35 Chronic neck pain 2482674923749 Active 2024 Lata Leavitt MD [facility]6 [facility] [place], [address], [facility] 5 01:55:12 Migraine without status migrainosus , not intractable , unspecified migraine type 52052317 Active 2024 [place] [address] [place], [place] [address], [address], [facility] 5 01:59:05 IZABEL (generalize d anxiety disorder) 01394232 Active 2024 Lata Leavitt MD [address] [place], [address], [facility] 5 01:59:18 Gastroesoph ageal reflux disease, unspecified whether esophagitis present 347476368 Active 2024 MD Paul Cutler [facility] [place], [address], [facility] 5 01:59:27 Hypothyroid ism, unspecified type 27452787 Active 2024 MD Paul Cutler [facility] [place], [address], [facility] 5 02:00:09 Essential (primary) hypertensio n 23451807 Active 2024 MD Paul Cutler [facility] [place], [address], [facility] 5 02:00:19 Hyperlipide haley, unspecified hyperlipide haley type 37633871 Active 2024 MD Paul Cutler [facility] [place], [address], [facility] 5 02:00:36 Asthma, unspecified asthma severity, unspecified whether complicated , unspecified whether persistent 604241277 Active 2024 [place], [address], [facility] 5 02:01:45 Chronic obstructive pulmonary disease, unspecified COPD type 40708666 Active 2024 [place], [address], [facility] 5 02:01:54 Irritable bowel syndrome, unspecified type 74100137 Active 2024 MD Paul Cutler [facility] [place], [address], [facility] 5 02:02:09 Major depressive disorder, remission status unspecified , unspecified whether recurrent 371577354 Active 2024 MD Rosalba Cutler[address] [place] [address] [place], [address], [facility] 5 02:02:24 Mitral valve insufficien cy, unspecified etiology 21179441 Active 2024 MD Rosalba Cutler[address] [place] [address], [address], [facility] 5 02:07:12 Insomnia, unspecified type 822926692 Active 2024 MD Rosalba Cutler[address] [place] [address], [address], [facility] 5 02:07:27 PTSD (post-traum atic stress disorder) 34269514 Active 2024 Lata Leavitt MD [address] [place] [address], [address], [facility] 5 12:45:58 Scoliosis, unspecified scoliosis type, unspecified spinal region 975707505 Active 2024 MD Rosalba Cutler[address] [place], [place] [address], [address], [facility] 5 12:46:30 Primary osteoarthri tis, unspecified site 097347150 Active 2024 Lata Leavitt MD [address] [place] [address], [address], [facility] 5 12:46:49 Osteoporosi s, unspecified osteoporosi s type, unspecified pathologica l fracture presence 21551468 Active 2024 MD Rosalba Cutler[address] [place] [address], [address], [facility] 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 5 14:14:04 Compression fracture of T8 vertebra, sequela 131235393 Active 2024 MD Rosalba Cutler[address] [place], [address], [facility] 5 14:16:17 Notes:Some problems listed i n Documents: #[id number], #[id number] could not be added to this patient's chart. Please review these documents and add these problems to the patient's chart manually as needed. Problem Notes None recorded. Medical Equipment None Reported. Allergies Allergen ID Allergen Name Allergen Category Reaction Reaction Severity Criticality Documentation Date Start Date Code Code System Note Provider Name and Address Organization Details Recorded Time 05038 azithromy doc medicatio n anaphylax is Not available Not available 02/03/2025 03713 Rx[place], [address], [facility] 5 01:56:06 09753 oxymetazo line medicatio n anaphylax is Not available Not available 02/03/2025 7812 [place], [address], [facility] 5 01:56:36 04790 iodine medicatio n dyspnea Not available Not available 02/03/2025 5933 [place], [address], [facility] 5 01:56:55 65695 latex environme nt,medica tion hives Not available Not available 02/03/2025 35500 [address] MD [address], [place], [address], [facility] 5 01:57:12 82290 Substance with sulfonami de structure and antibacte rial mechanism of action (substanc e) medicatio n hives Not available Not available 02/03/2025 23265 8003 SNOMED MD [facility] Cutler [facility], [place], [address] [place] [address], [facility] 5 01:57:26 19044 pantopraz ole medicatio n vomiting Not available Not available 02/03/2025 04219 RxNorm MD [address], [address] [place] [address], [facility] 5 01:57:43 65448 diclofena c Not available dizziness Not available Not available 02/03/2025 3355 [place], [address], [facility] 5 01:57:57 08996 atorvasta tin medicatio n myalgias (muscle pain) Not available Not available 02/03/2025 70683 [place], [address], [facility] 5 01:58:11 79450 shellfish derived food,medi cation rash Not available Not available 02/03/2025 [place], [address], [facility] 5 01:58:25 01209 Zetia medicatio n myalgias (muscle pain) Not available Not available 02/04/2025 40171 9 RxNorm Lata Leavitt MD [address], [place], [address], [facility] 5 12:38:43 Medications [...] Updated DateTime 5 152.4 cm 22.7 kg/m2 82435.7 1 g 97.9 [degF] 78 /min 96 % 120/60 mm[Hg] [facility] 5 13:51:16 Social History Question Answer Notes LastModified by Organizat ion Details LastModified Time Tobacco Smoking Status Current Every Day Smoker Lata Leavitt MD [address], [place], [address], [facility] 02/04/2025 12:37:30 What Is Your Level Of Caffeine Consumption? Occasional Information not available 02/04/2025 What Is The Highest Grade Or Level Of School You Have Completed Or The Highest Degree You Have Received? [id number] Vocational School Information not available 02/04/2025 What [...] HTN, stroke Other: CAD, diabetes, mental illness, OR, stroke Medical History No medical history recorded. Gynecological HistoryNo gynecological history recorded. Obstetrics History GPAL:G 0 P 0 0 0 0 Immunizations Vaccine Type Date Status Note Provider Nam e and Address Organization Details Recorded Time SARS-COV-2 (COVID-19) vaccine, UNSPECIFIED 05/27/2021 completed Lata Leavitt MD [address] [place] [address], [address], [facility] 02/03/2025 02:04:02 Past Encounters Encounter ID Performer Location Encounter Start Date Encounter Closed Date Diagnosis/Indication Diagnosis SNOMED-CT Code Diagnosis ICD10 Code Diagnosis IMO Codes Diagnosis Note [id number] Aleks Silver MD [facility] [address] 05/28/2025 13:26:09 05/28/2025 14:43:34 Chronic neck pain 8007416048 107 G89.29 M54.2 223820 Fracture o f sixth thoracic vertebra 198675378 S22.050K 5531854141 Compressio n fracture of thoracic spine 874698076 S22.060S 9583406531 Degenerati on of lumbar intervertebral disc 34601302 M51.362 4643755563 Degenerati on of thoracic intervertebral disc 04097741 M51.34 [id number] Health Concerns Section Related Observation LastModified by Organization Detai ls LastModified Time None Recorded Concern Status LastModified by Organization Details LastModified Time None Recorded Payers Encounter Date Sequence Insurance Name Policy Number Policy Espinosa Covered Member ID Espinosa Member ID Guarantor Name 05/28/2025 1 [facility] (MEDICARE REPLACEMENT/A DVANTAGE - HMO) [employer] Paige Kebede [id number] Paige Kebede Notes Date Note Type Note Provider Name and Address Organization Details Recorded Time 05/28/2025 text/html Back PainReporte d by Patient [...] POC at this time Pedrito Silver MD [address] [facility], [place], [address], [facility] 05/28/2025 14:39:30 OBGyn Episode No OBEpisode recorded.
[2025-06-23 15:30] LABS: Thyroid Stimulating Hormone 1.50 uIU/mL (0.465-4.68)
[2025-06-23 16:14] LABS: Free T4 (Free Thyroxine) 1.04 ng/dl (0.78-2.19)
== END 2025-06-23 23:59 | disposition home or self-care (01) ==
LOC: LAB 13:57
PROVIDERS: PCP Nurse Practitioner Family; Visit Provider Physician Assistant
DX: E78.5 Hyperlipidemia, unspecified (principal); J43.9 Emphysema, unspecified; R50.9 Fever, unspecified
CPT/HCPCS: 36415; 71046; 80048; 80061; 80076; 83735; 84439; 84443; 85025; 87631